=== PATIENT | male | born 1975 | race Caucasian/White ===

== ENCOUNTER 2021-11-05 18:36 | Emergency (ER) | payer OTHER, SELFPAY ==
[2021-11-05 18:46] VITALS: BP 138/85; PULSE 71; RESP 18; TEMP 36.1; O2SAT 100; BMI 24.4
--- NOTE | 2021-11-05 18:48 | ED.GENADULT ---
HPI - General Adult General Time Seen by Provider: 18:49 Date Seen: 11/05/21 Chief complaint: Nausea/Vomiting Stated complaint: Collapsed/Muscle Tightness Time Seen by Provider: 11/05/21 18:39 Source: patient Mode of arrival: ambulatory Limitations: no limitations History of Present Illness HPI narrative: Jose Luis is a 46 year old male with past medical history of chronic abdominal issues who presents to the ED via private car with nausea and vomiting. Patient states that he was in [place], helping his mother move, he did some heavier lifting. He drove back today, it is about [address], your the into the Dr. He developed some lower abdominal cramping, epigastric and periumbilical area, he got associated nausea and then felt some muscle cramping and tingling, lightheadedness, cramping and tingling was upper and lower extremities and also in his face, this has happened in the past, issues with his stomach were long time, he has had an upper and lower endoscopy, he is not on any medications at this time. Patient did go out with friends 2 nights ago which could have precipitated it. Denies any fevers or chills, no cough or chest pain, denies any back pain, urinary complaints, his last bowel movement was this morning and normal, patient states he does have issues with constipation in the past, no black or bloody stool. Patient has been hydrating. Since coming to the ED his muscle cramping, nausea and abdominal pain have improved. No other concerns at this time. Related Data Home Medications Medication Instructions Recorded Confirmed lactobacillus combination no.4 3 3,000 mmu cells PO QDAY 09/25/21 09/25/21 billion cell capsule (Probiotic) Allergies Allergy/AdvReac Type Severity Reaction Status Date / Time No Known Drug Allergies Allergy Verified 09/25/21 14:20 Review of Systems Status of ROS: Reports: 10 or more systems reviewed and unremarkable except as noted in History and below [facility] Medical History (Updated 11/05/21 @ 20:07 by Melo Rogers MD) History of hyperlipidemia Surgical History History of arthroscopy of right shoulder (~2008) History of medial meniscus repair of right knee (11/17/19) History of vasectomy (01/23/15) Family History Mother Dementia Other Alzheimers disease Heart problem Pancreatic cancer Social History Smoking Status: Never smoker Do you use any of these nicotine containing products: None Second hand tobacco smoke exposure: No service: No Exam Narrative: Exam Narrative: General: No obvious distress sitting comfortably HEENT: Pupils equal round reactive to light, extraocular muscles intact Neck: Supple full range of motion Lungs: Clear to auscultation bilaterally Heart: Normal sinus rhythm S1-S2 Abdomen: Minimal tenderness to palpation the epigastric and periumbilical area, no rebound or guarding, bowel sounds present, abdomen soft Muscle skeletal: Moving upper and lower extremities with no difficulty Neuro: Alert awake and oriented x3, gait within normal limits. Const: Vital Signs, click to edit/add: Vital Signs - 24 hr 11/05/21 18:46 Temperature 97.0 F L Pulse Rate [Right Pulse Oximeter] 71 Respiratory Rate 18 Blood Pressure [Ri ght Upper Arm] 138/85 Pulse Oximetry 100 Oxygen Delivery Me thod Room Air Course Course Hospital Course: 7:00PM: AIDET performed.vitals are normal. Work up will include IV peripheral, 1 liter 0.9 NS bolus, to check basic labs including, CBC, CRP, CMP, lipase and urinalysis. To give 40 mg IV protonix. Plan to treat symptomatically. Will await on labs to see if further imaging will be obtained. Differential diagnosis include, appendicitis, hepatitis, pancreatitis, cholecystitis, PUD colitis, nephrolithiasis, urolithiasis, urinary tract infection, riders, as well as other etiologies. Reevaluation(s) Reevaluation #1: Patient was updated on his lab results, he is tolerating orals, pain has improved, cbc showed no leukocytosis, metabolic panel mild elevated BS 138, normal AG, XR abdomen decubitus and upright pending. POC troponin negative. Due to shift change transfer of care was given to Dr. Santiago, please see his note for final disposition and plan. Time: 20:14 Vital Signs Vital signs: Initial Vital Signs Temperature 97.0 F L 11/05/21 18:46 Temperature Source Temporal Artery Scan 11/05/21 18:46 Pulse Rate 71 11/05/21 18:46 Respiratory Rate 18 11/05/21 18:46 Blood Pressure 138/85 11/05/21 18:46 Blood Pressure Mean 102 11/05/21 18:46 Blood Pressure Position Sitting 11/05/21 18:46 Pulse Oximetry 100 11/05/21 18:46 Oxygen Delivery Method 11/05/21 18:46 Vital Signs Temperature 97.0 F L 11/05/21 18:46 Pulse Rate 71 11/05/21 18:46 Respiratory Rate 18 11/05/21 18:46 Blood Pressure 138/85 11/05/21 18:46 Pulse Oximetry 100 11/05/21 18:46 Oxygen Delivery Method 11/05/21 18:46 Temperature 97.0 F L 11/05/21 18:46 Pulse Rate 71 11/05/21 18:46 Respiratory Rate 18 11/05/21 18:46 Blood Pressure 138/85 11/05/21 18:46 Pulse Oximetry 100 11/05/21 18:46 Oxygen Delivery Method 11/05/21 18:46 Medical Decision Making Lab Data Labs: Lab Results 11/05/21 11/05/21 Range/Units 19:15 19:15 WBC 8.39 (4.50-11.00) K/uL RBC 4.80 (4.30-5.90) m/uL Hgb 14.6 (13.5-17.5) gm/dL Hct 41.6 (37.0-53.0) % MCV 87 (80-100) fL MCH 30 (26-34) pg MCHC 35 (32-36) gm/dL RDW Coeff of [place] 11.3 L (11.5-15.5) % Plt Count 219 (140-440) K/uL Neut % (Auto) 85.2 H (42.0-72.0) % Lymph % (Auto) 7.7 L (20-44) % [place] % (Auto) 6.4 (0.0-11.0) % Eos % (Auto) 0.5 (0.0-7.0) % Baso % (Auto) 0.2 (0.0-3.0) % Neut # (Auto) 7.10 H (1.7-7.0) K/uL Lymph # (Auto) 0.60 L (0.90-2.90) K/uL [place] # (Auto) 0.50 (0.00-0.90) K/UL Eos # (Auto) 0.04 (0.00-0.50) K/uL Baso # (Auto) 0.02 (0.00-0.30) K/uL Abs Immat Gran (auto) 0.00 (0.00-0.30) K/uL Sodium 138 (135-149) mmol/L Potassium 3.6 (3.6-5.1) mmol/L Chloride 99 (96-114) mmol/L Carbon Dioxide 26 (20-32) mmol/L BUN 16 (5-24) mg/dL Creatinine 0.9 (0.5-1.5) mg/dL Estimated Creat Clear 110.39 Estimated GFR 107 ml/min Glucose 138 H (60-115) mg/dL Calcium 10.3 (8.4-10.6) mg/dL Total Bilirubin 0.8 (0.1-1.5) mg/dL AST 31 (12-35) U/L ALT 28 (4-50) U/L Alkaline Phosphatase 102 (40-150) U/L C-Reactive Protein 1.2 H (0.5-1.0) mg/dL Total Protein 8.3 (6.0-8.3) g/dL Albumin 4.9 (3.3-5.0) g/dL Lipase 59 (23-300) U/L Discharge Plan Discharge Clinical Impression: Abdominal cramping, Paresthesia, Nausea Patient Disposition: Home, Self-Care Condition: Improved Instructions: Abdominal Pain (ED) Additional Instructions: To follow up with primary care provider in the next 7-10 days, to continue to push the fluids, tylenol and OTC PPI's for abdominal cramping, return if worsening symptoms. Prescriptions: No Action Probiotic 3 billion cell capsule 3,000 mmu cells PO QDAY Rx Instructions: administer with a meal Follow Up/Referrals: Artur Paul MD [Primary Care Provider] - Stand Alone Forms: MyHealth Info Instructions
[2021-11-05 18:50] VITALS: BP 138/85; PULSE 73; RESP 18; O2SAT 97
[2021-11-05] MEDS: PANTOPRAZOLE SODIUM 40 MG INJ IVP (19:22)
[2021-11-05] MEDS: 0.9 % SODIUM CHLORIDE 1000 ml 1,000 ML IV (19:22)
--- OUTSIDE RECORDS SUMMARY | 2021-11-05 19:26 | XMS_ITS | Encounter Summary ---
:1975 Author Organization [facility] Address [address], [place] [address] Care Team Providers Name Role Phone Chencho Arauz PA-C Primary Care Provider Unavailable Encounter Details Date Type Department Care Team Description 11/19/2011 Lab Visit Specialty Center 3931 Abdomi nal pain, unspecified Outpatient Laborator y site [address] [place] [address] Social History Tobacco Use Types Packs/Day Years Used Date Smoking Tobacco: Never Assessed Sex Assigned at Date Recorded Not on file documented as of this encounter Plan of Treatment Not on filedocumented as of this encounter Procedures Procedure Name Priority Date/Time Associated Diagnosis Comme nts COMPLETE BLOOD Routine 11/19/2011 4:08 PM Abdominal pain, Resu lts for this COUNT-W/DIFF CDT unspecified site procedure a re in the results section. DIFFERENTIAL Routine 11/19/2011 4:08 PM Results f or this CDT procedure are i n the results section. C-REACTIVE PROTEIN Routine 11/19/2011 4:08 PM Abdominal pain, Results for this CDT unspecified site procedure a re in the results section. documented in this encounter Results Differential (11/19/2011 4:08 PM CDT) Analysis Performed At Patho logist Time Signature Absolute 3.2 1.8 - 8.0 HP CONVERSION Neutrophils k/cmm Absolute 1.6 1.1 - 4.0 HP CONVERSION Lymphocytes k/cmm Absolute 0.4 0.2 - 0.8 HP CONVERSION Monocytes k/cmm Absolute 0.1 0.0 - 0.5 HP CONVERSION Eosinophils k/cmm Absolute 0.0 0.0 - 0.2 HP CONVERSION Basophils k/cmm Immature 0.2 0.0 - 0.5 HP CONVERSION Granulocytes % Specimen Anatomical Collection Method Collection Time Receive d Time (Source) Location / / Volume Laterality 11/19/2011 4:08 PM 2 4:12 CDT PM CDT [place] C Brittany LEVINE CNP LAB_1 Performing Organization Address [facility] Phon e Number HP CONVERSION C-Reactive Protein (11/19/2011 4:08 PM CDT) athologist Signature CRP <0.1 0.0 - 0.9 HP CONVERSION mg/dL Specimen Anatomical Collection Method Collection Time Receive d Time (Source) Location / / Volume Laterality 11/19/2011 4:08 PM 2 4:12 CDT PM CDT DeeD ee Soto APRN, CNP LAB_1 Performing Organization Address [facility] Phon e Number HP CONVERSION Hemogram/Plts/Diff (11/19/2011 4:08 PM CDT) P athologist Signature White Blood Cell 5.2 3.8 - 11.0 HP CONVERSIO N Count k/cmm Red Blood Cell 4.65 4.20 - HP CONVERSION Count 5.90 m/cmm Hemoglobin 14.2 13.4 - HP CONVERSION 17.5 g/dL Hematocrit 40.4 39.0 - HP CONVERSION 51.0 % Mean Corpuscular 86.9 80.0 - HP CONVERSION Volume 100.0 fL RDW 11.9 11.0 - HP CONVERSION 15.0 % Platelet Count 221 140 - 450 HP CONVERSION k/cmm Specimen Anatomical Collection Method Collection Time Receive d Time (Source) Location / / Volume Laterality 11/19/2011 4:08 PM 2 4:12 CDT PM CDT Dee Dee Soto APRN, CNP LAB_1 Performing Organization Address [facility] Phon e Number HP CONVERSION documented in this encounter Visit Diagnoses Diagnosis Abdominal pain, unspecified site documented in this encounter Care Teams Instrument Panel Assembler Relationship Specialty Start Date End Date Chencho Arauz PA-C PCP - General 05/14/1012/16/11 documented as of this encounter
--- OUTSIDE RECORDS SUMMARY | 2021-11-05 19:26 | XMS_ITS | Encounter Summary ---
:1975 Author Organization [facility] Address [address] [place] [address] Care Team Providers Name Role Phone Ge Lawler MD Primary Care Provider Reason for Visit Reason Comments Abdominal Pain Encounter Details Date Type Department Care Team Description 03/04/2012 Office Visit Specialty Center Dee Dee Soto, Abdomi nal pain, [address] unspecified site Gastroenterology [address] [place] [address] (Primary Dx) [address] [place] [address] [phone] Social History Tobacco Use Types Packs/Day Years Used Date Smoking Tobacco: Never Alcohol Use Standard Drinks/Week Comments Yes 1.7 (1 standard drink = 0.6 oz pure alco hol) Sex Assigned at Date Recorded Not on file documented as of this encounter Last Filed Vital Signs Vital Sign Reading Time Taken Comments Blood Pressure 118/68 03/04/2012 3:55 PM CERTIFIED PUBLIC ACCOUNTANT Pulse - - Temperature - - Respiratory Rate - - Oxygen Saturation - - Inhaled Oxygen Concentration - - Weight 80.1 kg (176 lb 9.6 oz) 03/04/2012 3:55 PM CERTIFIED PUBLIC ACCOUNTANT Height - - Body Mass Index 24.63 12/23/2011 3:46 PM CERTIFIED PUBLIC ACCOUNTANT documented in this encounter Patient Instructions Patient InstructionsDee Dee Soto, MATT LEVINE - 03/04/2012 4:33 PM CERTIFIED PUBLIC ACCOUNTANT dicyclomine 1 or 2 at a time dry mouth constipation light headed ultrasound when you are able call when you have pain recur, give description Any time there is pain, write down what you have eaten and drunk in the previous 24 hours and note what your bowel habit has been in 3 days - and what happens the next 12 -24 hours. Keep these records for review to see whether a food or food group is causing the episode or whether stool overload is causing a natural clean out. Miralax daily for months - one dose daily if mushy stool, 1/2 dose OR psyllium daily heaping teaspoon, Milk of magnesia 2 to 4 tablespoons if pain lasts IFIED PUBLIC ACCOUNTANT documented in this encounter Progress Notes Dee Dee Soto APRN, CNP - 03/04/2012 5:19 PM CST Progress Notes signed by FANY Boss at 03/09/121850 Author: FANY Boss Service: (none) Author Type: Nurse Practitioner Filed: 03/09/121850 Note Time: 03/04/121718 Status: Signed Pediatric Occupational Therapist: FANY Boss (Nurse Practitioner) NAME: JOSE LUIS SHIPLEY MR#: [id number] CSN: [id number] AUTHENTICATING CLINICIAN: FANY Boss CONFIRM #: [id number] LOC: 3533 CLINIC PROGRESS NOTE DATE OF VISIT: 03/04/2012 : 1975 CHIEF COMPLAINT: Abdominal pain, recurrent. HISTORY OF PRESENT ILLNESS: Jose Luis is a 37-year-old man whom I first met April 24, 2011, regarding abdominal pain. He returnedto clinic November 18. Abdominal film on that date showed stool in the right side of the colon. Subsequent to the most recent visit he had colonoscopy in December. He had 2 days after colonoscopy with no discomfort or pain, but then 2 days with fairly severe pain. He had to leave work at one point. He has had many weeks when he felt well, some occasional days with mild symptoms which were brief. Last week he had 3 days with lower level discomfort over about 3 days. Jose Luis has not had nausea, vomiting, upper GI symptoms. He does not have decrease in energy or appetite, fevers or chills. His pain occurs or worsens 30 to 60 minutes after a meal. It usually resolves within a couple hours. Only on occasion when it was so severe that it lasted 2 days. He feels better when he lies down. A colleague suggested gallbladder disease, so he wonders about that. He denies constipation, but on more detailed questioning, did have pellet stool at the time of his pain last week. He rarely has a day with no stool. He does not recall unusual gas and is unable to associate his pain with any specific ingestion. MEDICAL HISTORY: Updated, no other chronic condition. MEDICATIONS: Hyoscyamine was of no benefit, is deleted from the record. ADVERSE DRUG REACTIONS: None known. REVIEW OF SYSTEMS: Otherwise negative. OBJECTIVE: Blood pressure 118/68, weight 176 pounds, height 71 inches. Clean, neatly groomed, nicely dressed in business casual attire, well-nourished man, in no visible distress. EYES: Anicteric. Abdomen is tympanic on the right and epigastrium, soft, nontender, with no mass or organomegaly. He confirms location of his pain as being across the mid abdomen at the level or just above the umbilicus. RESULTS: Normal colonoscopy. Also normal complete blood count, CRP, tTG. ASSESSMENT: A 37-year-old man with functional abdominal pain, which is highly likely associated with his colon and probably secondary to stool overload or inadequate bowel movement. This pain has never localized to the epigastrium or right upper quadrant, so is highly unlikely to be from his gallbladder. Also, with his more severe pain, it still felt better with him lying down rather than pacing as would be withgallstones. The most recent pain was nearly a week ago so laboratory studies would in all likelihoodremain normal. PLAN: 1. Right upper quadrant ultrasound. 2. MiraLAX 1 dose daily, may decrease to half dose daily. 3. Dicyclomine as needed. 4. At the time of pain, record ingestions and bowel habit as in instructions. 5. Psyllium is a good substitute if he does not care for the MiraLAX or has suboptimal stool form. 6. If pain lasts more than a couple of hours, milk of magnesia 2 to 4 tablespoons is a reasonable action as long as he has no vomiting or diarrhea. 7. If he has the severe pain for which he needs to leave work and it is not resolved, a CT of the abdomen and pelvis at that time would be a reasonable action. 8. We reviewed the assessment and plan. If these actions do not resolve pain, but it is not severe enough for the emergency center, he is to please call and we will order lab tests at a minimum. He hasno family history of angioedema or porphyria, and his symptoms are so very likely functional as compared to those rare disorders and he does not have some of the additional features more common with the rare disorders. This was discussed. 9. Total visit 20 minutes with counseling time 15 minutes. SCB:MEDQ C: CONFIRM #: [id number] IFIED PUBLIC ACCOUNTANT documented in this encounter Plan of Treatment Not on filedocumented as of this encounter Procedures Procedure Name Priority Date/Time Associated Diagnosis Comme nts US ABD RUQ ORGANS Routine 03/30/2012 7:50 AM Abdominal pain, R esults for this CERTIFIED PUBLIC ACCOUNTANT unspecified site procedure a re in the results section. documented in this encounter Results US Abd RUQ Organs (03/30/2012 7:50 AM CERTIFIED PUBLIC ACCOUNTANT) Anatomical Region Laterality Modality Abdomen Other Specimen (Source) Anatomical Location Collection Method / Collectio n Time Received Time / Laterality Volume Impressions 03/30/2012 8:03 AM CERTIFIED PUBLIC ACCOUNTANT IMPRESSION: Normal right upper quadrant ultrasound. Narrative 03/30/2012 8:03 AM CERTIFIED PUBLIC ACCOUNTANT No comparison. Pancreas is normal. ?? Liver is normal. ?? No intra or extrahepatic biliary dilatat ion. Common bile duct maximum diameter 4 mm. ?? Gallbladder is normal and no sludge, mera ris or calculi. Technologist reports negative Spann's s ign and no wall thickening or fluid in the gallbladder fossa is seen. Right kidney is normal. Procedure Note Wing Belcher MD - 07/29/2015Formatti ng of this note might be different from the original. No comparison. Pancreas is normal. Liver is normal. No intra or extrahepatic biliary dilatat ion. Common bile duct maximum diameter 4 mm. Gallbladder is normal and no sludge, mera ris or calculi. Technologist reports negative Spann's s ign and no wall thickening or fluid in the gallbladder fossa is seen. Right kidney is normal. IMPRESSION IMPRESSION: Normal right upper quadrant ultrasound. Dee Dee Soto APRN, CNP RAD US documented in this encounter Visit Diagnoses Diagnosis Abdominal pain, unspecified site - Prima ry documented in this encounter Care Teams Graphite Grinder Relationship Specialty Start Date End Date Ge Lawler MD PCP - General Family Practice 12/17/11 10/11/15 [address] [place] [address] documented as of this encounter
--- OUTSIDE RECORDS SUMMARY | 2021-11-05 19:26 | XMS_ITS | Encounter Summary ---
:1975 Author Organization [facility] Address [address] [place] [address] Care Team Providers Name Role Phone Ge Lawler MD Primary Care Provider Encounter Details Date Type Department Care Team Description 04/15/2013 Imaging [facility] Pain in joint, shoulder [address] [place], [place] [address] Social History Tobacco Use Types Packs/Day Years Used Date Smoking Tobacco: Never Alcohol Use Standard Drinks/Week Comments Yes 1.7 (1 standard drink = 0.6 oz pure alco hol) Sex Assigned at Date Recorded Not on file documented as of this encounter Plan of Treatment Not on filedocumented as of this encounter Procedures Procedure Name Priority Date/Time Associated Diagnosis Comme nts XR SHOULDER LT 2+ Routine 04/15/2013 3:57 PM Pain in joint, Re sults for this VIEWS CERTIFIED FORKLIFT OPERATOR shoulder region procedure ar e in the results section. documented in this encounter Results XR Shoulder Lt 2+ Views (04/15/2013 3:57 PM CERTIFIED FORKLIFT OPERATOR) Anatomical Region Laterality Modality Upper Extremity, Shoulder Other Specimen (Source) Anatomical Location Collection Method / Collectio n Time Received Time / Laterality Volume Narrative 04/16/2013 8:16 AM CERTIFIED FORKLIFT OPERATOR Shoulder films: INDICATION: Left shoulder pain. RADIOGRAPHIC ASSESSMENT: Perhaps slight widening of the AC. Procedure Note Yung Larsen MD - 07/29/2015Format ting of this note might be different from the original. Shoulder films: INDICATION: Left shoulder pain. RADIOGRAPHIC ASSESSMENT: Perhaps slight widening of the AC. Yung Larsen MD RAD GD documented in this encounter Visit Diagnoses Diagnosis Pain in joint, shoulder region documented in this encounter Care Teams Pilot Supervisor Relationship Specialty Start Date End Date Ge Lawler MD PCP - General Family Practice 12/17/11 10/11/15 [address] [place] [address] documented as of this encounter
--- OUTSIDE RECORDS SUMMARY | 2021-11-05 19:26 | XMS_ITS | Encounter Summary ---
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 If you develop bleeding from the site, apply firm pressure directly over the bandage, using the heelof your hand, for [address] another bandage on top of the first one - don???t keep removing and replacing dressings. NO PEEKING! Notify us if the bleeding still does not stop. Clean the area once a day with warm soap and water. Gently pat dry the area. If you have stitches, use a cotton-tipped applicator to gently remove any crust or scab that has formed. Showering is okay, but please do not soak in a bathtub, hot tub, or pool. This will slow the healingprocess and may create infection. After the area has been cleaned and is dry, apply a small amount of petroleum jelly or Aquaphor healing ointment and apply a new bandage. We prefer that you do not use an antibacterial ointment (i.e. bacitracin, Neosporin) as many people develop a hypersensitivity including a rash and even blistering related to these. Continue the wound care process until the area is healed or until stitches are removed. Complete healing usually takes 2-4 weeks. Wounds heal best when kept moist, try not to let the area dry out. Letting them open to air, drying out, and having a scab form actually causes wounds to take longer to heal. If your skin is getting sensitive to the bandage, use gauze and paper tape. Avoid exercising for 2 days and if you have stitches, you will want to restrict your physical activity to avoid strenuous movements that will cause stretching and pulling of the skin for 2 weeks. Infection after a biopsy or surgery is not likely, but can occur. Mild amounts of redness, bruising,swelling, discomfort and a clear to yellowish to blood- tinged discharge are normal. Signs of Infection include: fever, increasing pain, blood blister, drainage of pus, and extreme heatfrom the site. Feel free to call the clinic at [phone] if you experience any of these symptoms. Suture Removal: Please schedule your nurse appointment at the lead front desk agent for the suture removal within 7-14 days. We will notify you by telephone with the results of the biopsy as soon as they become available, generally within 2 weeks. BAKER documented in this encounter Progress Notes Kailey Oswald RN - 02/07/2012 9:14 AM HEAD BAKER Quick Note: letter sent BAKER Ashleigh Espinal MD - 02/06/2012 9:37 AM HEAD BAKER Quick Note: FP, benign . Please mail letter. BAKER Ashleigh Espinal MD - 01/28/2012 3:22 PM CST S: Jose Luis Shipley is a 36 y.o. male here for follow up. Patient is here to have the fibrous papule on the right nasal bridge removed today. Current outpatient prescriptions ordered prior to encounter Medication Sig Dispense Refill ??? hyoscyamine (LEVSIN/SL) 0.125 mg SL tablet Take 1 tablet by mouth every 4 hours as needed for Cramping. 30 tablet 0 No Known Allergies O: Healthy male in NAD. Alert and oriented x 3. Exam includes: face Pertinent findings: 4 mm skin colored papule on right nasal bridge A/P: 1. Probable Fibrous papule on the nasal bridge. A shave biopsy was performed to help elucidate diagnosis. Informed consent obtained. The area was cleansed, and prepped accordingly. Anesthesia was achieved with lidocaine with epinephrine. Shave biopsy was done. Specimen sent for pathology review. Hemostasis achieved with aluminum chloride. Vaseline and bandaid applied. Wound care reviewed. Kailey Peres, assisted Ashleigh Espinal MD in documenting services performed at this visit on 01/28/2012 at 3:08 PM. Cesia Oswald RN assisted in documenting services performed at this visit on 01/28/2012 at 3:08 PM BAKER documented in this encounter Miscellaneous Notes Miscellaneous - 03/22/2016 11:36 AM CSTNotes Recorded by Kailey Oswald RN on 02/07/2012 at 9:14 AMletter sent------Notes Recorded by Ashleigh Espinal MD on 02/06/2012 at 9:37 AMFP, benign . Please mail letter. BAKER documented in this encounter Plan of Treatment Not on filedocumented as of this encounter Procedures Procedure Name Priority Date/Time Associated Diagnosis Comme nts SURGICAL PATH, TERRY Routine 01/28/2012 6:00 AM Re sults for this NICOLLET HEAD BAKER procedure are i n the results section. documented in this encounter Results Pathology Report (01/28/2012 6:00 AM HEAD BAKER) Component Value Ref Test Analysis Performed At [facility] gist Range Method Time Signature Path: ? Final DERMATOPATHOLOGY REPO RT HP CONVERSION Pathology #: [id number] ? Date Obtained: 01/28/2012 ?Date Received: 01/28/2012 DIAGNOSIS: ? Skin, right nasal bridge, shave biopsy: ? - Irritated fibrous papule. (See comment) ? Comment: Deeper sections were obtained in this case. Deep margin ? is involved. Appropriate clinical follow-up is recomm ended. ? Additional sampling is advised if a lesion recurs. Th is case was ? reviewed with KR. ?MEGHAN YBARRA N ? (electronic signatur e) ? 02/03/2012 ??14:1 9 CLINICAL NOTES: ? R/O FP vs other ORGAN/TISSUE SITE ? Right nasal bridge GROSS DESCRIPTION: ? Received in a formalin-filled container labeled with the patient's ? name is a 3 x 2 x 1 mm shave biopsy of skin. The spec imen is ? marked with blue ink and submitted entirely in one ca ssette. ?PEDEL MICROSCOPIC DESCRIPTION: ? Sections examined show a shave of skin. Within the de rmis are ? stellate fibroblasts. Dilated vessels and perivascula r ? inflammation are seen. Deeper sections show similar f eatures. ? Factor 13a highlights the fibroblasts. S-100 stain sh ows a normal ? number of epidermal melanocytes, dendritic cells and small nerves ? and does not show an atypical melanocytic lesion. Jolly khan A stain ? shows a normal number of epidermal melanocytes and do es not show ? an atypical melanocytic lesion. ??The deep margin is involved. ? End of Report Specimen Anatomical Collection Method Collection Time Receive d Time (Source) Location / / Volume Laterality SHAVE BIOPSY OF 01/28/2012 6:00 AM 2011 6:00 SKIN / Unknown HEAD BAKER AM HEAD BAKER Transcriptions 03/22/2016 11:36 AM CSTNotes Recorded by Kailey Oswald RN on 02/07/2012 at 9:14 AMletter sent------Notes Recorded by Ashleigh Espinal MD on 02/06/2012 at 9:37 AMFP, benign . Please mail letter. 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
--- OUTSIDE RECORDS SUMMARY | 2021-11-05 19:26 | XMS_ITS | Encounter Summary ---
:1975 Author Organization [employer] Address [address] [place] [address] Care Team Providers Name Role Phone Ge Lawler MD Primary Care Provider Reason for Visit Reason Comments Annual Exam Encounter Details Date Type Department Care Team Description 10/13/[address] [facility] [address] Chencho Arauz general medical examination at a health care facility (Primary Dx); Family Medicine W, PA-C Screening for ischemic heart disease; [facility] [place] [address] Screening for diabetes mellitus; [facility] Need for edbvblivkp-lripuyn-tiqjpjiqv (T dap) vaccine; [place], [place] Contr aception [phone] Social History Tobacco Use Types Packs/Day Years Used Date Smoking Tobacco: Never Alcohol Use Standard Drinks/Week Comments Yes 1.7 (1 standard drink = 0.6 oz pure alco hol) Sex Assigned at Date Recorded Not on file documented as of this encounter Last Filed Vital Signs Vital Sign Reading Time Taken Comments Blood Pressure 100/60 10/13/2013 3:31 PM CDT Pulse 60 10/13/2013 3:31 PM CDT Temperature - - Respiratory Rate - - Oxygen Saturation - - Inhaled Oxygen Concentration - - Weight 80.7 kg (178 lb) 10/13/2013 3:31 PM CDT Height 179.1 cm (5' 10.5) 10/13/2013 3:31 PM CDT Body Mass Index 25.18 10/13/2013 3:31 PM CDT documented in this encounter Patient Instructions Patient Yolanda Farris LPN - 10/13/2013 3:32 PM CDT Patient Followup Plan: Provided patient with Healthy Weight Matters brochure. Healthy Weight Matters Understanding body mass index If you are overweight or obese, your risk increases for developing health problems. Similarly, a lowBMI can indicate an underlying health problem, or you simply may not be eating enough. Your BMI measurement alone cannot predict your health risk. But if you know your BMI is high or low, you can take steps to set healthy goals and improve your overall well-being. You can check your BMI by using the BMI table on the back. Overall, we recommend making healthy changes to your eating and exercise habitsto increase, decrease or maintain your weight. What can I do if I have a high BMI? Losing weight is an important way to reduce your BMI and improve your overall health and well-being.The best way to lose weight and keep weight off is to balance the foods you eat with daily physical activity. Start small. Aim to lose a few pounds to begin rather than worry about your ideal weight. Here are some tips: ??? Keep a record of what you eat for 2 weeks to notice what you are and are not eating ??? Eat 5 servings of fruits and vegetables a day ??? Replace some of the meat in your meals with legumes (dry beans) and whole grains ??? Limit adding fats, such as salad dressing, mayonnaise, peanut butter, margarine, butter and oil,to your food ??? Pay attention to portion sizes--Use smaller plates if helpful. ??? Drink water instead of sweetened beverages, such as soda, juice and coffee drinks ??? Do not eat fast food ??? Share meals when eating at restaurants, or take home half of the entr??e Doing 30 minutes or more of physical activity every day and not smoking are important. Choose activities you enjoy and are safe for you, so you can make them part of your daily schedule. Remember to check with your doctor before starting any exercise program. Gradually work up to the goals you set with your doctor. What can I do if I have a low BMI? Staying at a healthy weight is important to support your daily activities. Do not skip meals and tryto eat 5 to 6 small meals daily. Here are some tips: ??? Add nuts or nut butters, avocado or olive oils to salads and side dishes ??? Choose 100% fruit juices for beverages instead of water ??? Drink a higher fat milk (2% or whole) ??? Drink a high-calorie nutritional beverage ??? Eat fruit canned in syrup or frozen with sugar ??? Substitute juice or milk for water as a beverage ??? Serve fresh vegetables with cheese spreads, regular sour cream, dips or salad dressings Also consider reducing your exercise. For example, decrease the time you exercise or take a day off every 2 to 3 days. Your body mass index, or BMI, is a good way to check if your weight is healthy for your height. YourBMI helps us find out if your weight is putting your health at risk. Healthy eating for all No matter your BMI, follow these recommendations to help be as healthy as possible: ??? Eat 5 servings of fruits and vegetables a day ??? Pay attention to portion sizes ??? Limit your sugar-sweetened beverages ??? Eat a variety of unprocessed foods prepared naturally ??? Eat in a pleasant environment--Enjoy the company of family or friends when you eat. Resources ??? Primary Care Nutrition Services. One-on-one visits with a registered dietitian are available at various clinic locations to help you develop a personalized plan for managing your weight. Clinic locations include [facility], [facility] and [place]. To schedule an appointment, call [phone]. ??? Local and on-line resources. For more information on managing weight, call [phone] to have a brochure mailed to you. Your Body mass index is 25.17 kg/(m^2). Less than 18.5 = Underweight 18.5 to 24.9 = Healthy weight 25 to 29.9 = Overweight 30 to 39.9 = Obese 40 or greater = Extreme obesity documented in this encounter Progress Notes Chencho Arauz PA-C - 10/13/2013 4:27 PM CDT Preventive Exam SUBJECTIVE: Patient presents for a routine preventive physical exam. He has no symptomatic complaints or other concerns. Past Medical History: Patient's active medical problems were reviewed and updated in Epic. Past Medical History Diagnosis Date ??? Abdominal pain, unspecified site 03/04/2012 recurrent Adverse Drug Reactions: No Known Allergies Current Medications: Reviewed today and updated in [email or web address] Med List. Current Outpatient Prescriptions on File Prior to Visit Medication Sig Dispense Refill ??? [] ciprofloxacin-dexamethasone (CIPRODEX) otic suspension Place 4 drops into the left ear2 times daily for 7 days. 7.5 mL 0 No current facility-administered medications on file prior to visit. Family History: History reviewed. No pertinent family history. Social History: History Social History ??? Marital Status: Spouse Name: N/A Number of Children: N/A ??? 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 Smoking status: Never Smoker ??? Smokeless tobacco: Never Used ??? Alcohol Use: 1.8 oz/week 3 Cans of beer per week Comment: Alcoholic Drinks/day: Amount:3-4 drinks; Freq:2-4/Month ; ??? Drug Use: Not on file ??? Sexual Activity: Not on file Other Topics Concern ??? Bike Helmet No ??? City Water Yes ??? Exercise Yes ??? Guns In Home No ??? Seat Belt Yes ??? Special Diet No ??? Weight Concern No Social History Narrative Review of systems are HEENT: Denies any headache diplopia blurred vision ringing in the ears sinus pressure pain sore throat or change in voice Pulmonary denies any cough congestion hemoptysis dyspnea Cardiac denies any chest pain pressure palpitations GI denies any hematochezia melena or hematemesis denies any dysuria hematuria frequency or hesitancy Neurological denies any dizziness syncope seizures paresthesias weakness tremor or fasciculations Musculoskeletal denies any joint stiffness swelling Vascular denies any phlebitis varicosities claudication or cramping Heme denies any lymph node enlargement pain fatigue fever chills or night sweats Integument denies any worrisome lesions moles or itching Psych denies any depression anxiety panic memory disturbances OBJECTIVE: Vital Signs: BP 100/60 Pulse 60 Ht 5' 10.5 (1.791 m) Wt 178 lb (80.74 kg) BMI 25.17 kg/m2 General: Patient alert, in NAD. HEENT: PERRLA. Bilateral TM's, external canals, oropharynx normal. Neck: Supple, without thyromegaly or mass. CV: RRR without murmurs, rubs or gallops. Resp: Clear to auscultation without crackles, wheezes or distress. Abdomen: Soft, non-tender, without hepatosplenomegaly, masses, or hernias. Lymphatic: No neck, supraclavicular, axillary or groin lymphadenopathy. Extrem: No Edema, Full ROM, normal strength Skin: No lesions. Neuro: CN II-XII, motor & sensory function all intact. Reflexes are equal at the patellas bilaterally. Psychiatric: Alert & oriented with normal affect and insight. Patient does not appear depressed or anxious. ASSESSMENT: Routine preventive exam. Healthy male. Diagnosis (ICD9) and Associated Orders ICD-9-CM 1. Routine general medical examination at a health care facility V70.0 CANCELED: Glucose 2. Screening for ischemic heart disease V81.0 Cholesterol Fraction-LDLD If Trig High 3. Screening for diabetes mellitus V77.1 Glucose 4. Need for rpapjlesnd-hubmzfm-nvtuqxbdx (Tdap) vaccine V06.1 Tdap (BOOSTRIX) Immunizations reviewed and updated. See Problem List Patient Active Problem List Diagnosis ??? Abdominal pain, unspecified site PLAN: Follow-up in 1 year, sooner PRN any concerns. Fasting Labs as ordered. [Prescriptions provided, see OP Med list.] documented in this encounter Plan of Treatment Not on filedocumented as of this encounter Visit Diagnoses Diagnosis Routine general medical examination at a health care facility - Primary Screening for ischemic heart disease Screening for diabetes mellitus Need for icokgsshgu-ahleqve-bkyvrlfrf (T dap) vaccine Need for prophylactic vaccination with c ombined naxumbbwtm-wjehpgo-dacyyystj (DTP) vaccine Contraception Unspecified contraceptive management documented in this encounter Care Teams Tile Inspector Relationship Specialty Start Date End Date Ge Lawler MD PCP - General Family Practice 12/17/11 10/11/15 [address] [place] [address] documented as of this encounter
--- OUTSIDE RECORDS SUMMARY | 2021-11-05 19:26 | XMS_ITS | Encounter Summary ---
:1975 Author Organization [facility] Address [address] [place] [address] Care Team Providers Name Role Phone Ge Lawler MD Primary Care Provider Reason for Referral Specialty Diagnoses / Procedures Referred By Contact Refer red To Contact Chencho Arauz P A-C [address] [place] [address] Referral ID Status Reason Start Date Expiration Date Visits Requ ested Visits Authorized RER PETROLEUM REFINERY Reason for Visit Reason Comments CONSULT Sterilization Encounter Details Date Type Department Care Team Description 12/31/2013 Initial Consult [facility] [address] Santo Paula erilization consult (Primary Dx); Urology MD Patti Contraception 39[address] [facility] [address] [facility]. [facility] [phone] Social History Tobacco Use Types Packs/Day Years Used Date Smoking Tobacco: Never Alcohol Use Standard Drinks/Week Comments Yes 1.7 (1 standard drink = 0.6 oz pure alco hol) Sex Assigned at Date Recorded Not on file documented as of this encounter Progress Notes Santo Paula MD - 12/31/2013 4:11 PM CST Vasectomy Consult ?? The patient is self-referred for his vasectomy consult. Jose Luis Shipley is a 38 y.o. male is here for a vasectomy consult.? The patient wishes for a permanent sterilization. ?? I discussed the nature of the procedure with the patient and how it is performed.?? We also discussed the risk of infection, bleeding, post vasectomy pain syndrome and persistent or recurrent fertilityissues all which could require a surgical procedure.?? We also discussed the risk of future due to the tubes reconnecting.?? The patient recognizes that he needed to have a negative sperm sample 3-4 months after his vasectomy before he can be cleared to have unprotected intercourse.?? The patient understood all of this.?? All questions were answered, and informed consent was obtained. ?? OBJECTIVE: GENITOURINARY:?? Both vas are easily palpable. ?? ASSESSMENT: Vasectomy consult. ?? PLAN: The patient will schedule himself for a vasectomy sometime in the near future.?? A prescription for valium was given to the patient. ?? Santo Paula MD RER PETROLEUM REFINERY documented in this encounter Plan of Treatment Scheduled Referrals Name Type Priority Associated Diagnoses Order S chedule Urology Consult-Adults Referral Routine Contraception Orde red: 12/31/2013, Expires: 2013 documented as of this encounter Visit Diagnoses Diagnosis Sterilization consult - Primary Other general counseling and advice for contraceptive management Contraception Unspecified contraceptive management documented in this encounter Care Teams Meter Installer And Remover Relationship Specialty Start Date End Date Ge Lawler MD PCP - General Family Practice 12/17/11 10/11/15 [address] [place] [address] documented as of this encounter
--- OUTSIDE RECORDS SUMMARY | 2021-11-05 19:26 | XMS_ITS | Encounter Summary ---
:1975 Author Organization [employer] Address [address] [place] [address] Care Team Providers Name Role Phone Chencho Arauz PA-C Primary Care Provider Unavailable Reason for Visit Reason Comments Physical Therapy Encounter Details Date Type Department Care Team Description 05/20/2016 Office Visit [facility] Miko Pascal, PT Acute pain of right knee (Primary Dx); Center, Physical [address] [facility] Weakness of right lower extremity [place], [place] [address] [facility] [address] [address] [address] [place], [place] [address] [phone] Social History Tobacco Use Types Packs/Day Years Used Date Smoking Tobacco: Never Smokeless Tobacco: Never Alcohol Use Standard Drinks/Week Comments Yes 3 (1 standard drink = 0.6 oz pure Alcoho lic Drinks/day: Amount:3-4 alcohol) drinks; Freq:2-4/Fri ; Alcohol Habits Answer Date Recorded How often do you have a drink Not asked containing alcohol? How many drinks containing alcohol Not asked do you have on a typical day when you are drinking? How often do you have six or more Not asked drinks on one occasion? Comment: Alcoholic Drinks/day: Amount:3-4 016 drinks; Freq:2-4/Month ; Sex Assigned at Date Recorded Not on file documented as of this encounter Progress Notes Miko Pascal, PT - 05/20/2016 11:23 AM CDT [facility] Daily Note Visit Number: 5 Preferred One <13 years Initial Certification Period: 04/20/2016 to 07/19/16 Referring Provider: Angelina Nowak MD Diagnosis: R patellar tendonitis Orders: Evaluate & treat Precautions/Contraindications: none Date of Onset: Re-exacerbation of symptoms 2.5 weeks ago Standardized Functional Score: Knee Outcome Survey: 41/70 = 58.6%; Sport Activity Scale: 23/55 = 41.8% (lower scores represent greater disability) History: The patient reports a 12 year history of R knee pain, off/on. He works on his strengtheningat the gym (primarily knee extensions, hamstring curls). He states that during his last basketball game 2.5 weeks ago, he states he landed wrong and felt immediately R anterior knee pain. He kept playing but after the game his symptoms worsened and has hasn't been able to play since then. He tried riding his bike lasts week but had difficulty starting due to pain. He has reported a couple instances of knee buckling/giving way. Going up and down stairs also provokes the pain. The pain is located in the anterior knee just below the patella. He denies swelling. He has been icing, which tends to help. Method of Injury: Jumping and landing during basketball Recreational activities; basketball 1x/week, tennis off on, plays more in summer. Elliptical and light lifting at the gym 2x/week. 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 Daily pain is rare now, but he still notes soreness if he tries to jog up/down stairs and deeper squats most of all. OBJECTIVE: Today???s Findings: ROM ([id number]): WNL without symptoms Joint mobility: Patellar: WNL without pain Strength: per below Palpation: continued tenderness to palpation at inferior patellar pole, medial facet, and patellar tendon - though improved Functional Tests: Double leg squat: looking great Single leg squat: looked great on L, mild anterior loading and valgus still on L TREATMENT TODAY: Neuromuscular re-education (CPT 93837) x 25 minutes: Patellar taping - reduced symptoms with step down task Access Code: [email or web address] Exercises Single leg bridges x fatigue/20 - 90/90 position now Prone Planks - alternating leg lifts as able Double leg press x 20 - 160 lbs Single leg press x 20 - 85 lbs lateral step downs - progressed to retro step ups at 4-6'' step x 20 Abduction side step with band x 20 - progressed to eccentric SL glute Side planks threaders x 30 sec Forward walking lunges x 20 Single leg RDLs x 20 lbs x 20 All BILATERAL Patient correctly performed all exercises following mild verbal, tactile, and visual cues regarding isolation of intended musculature and to keep exercises pain free, and displayed good understanding of exercise parameters and progression. Timed Code Treatment Minutes: 25 Total Treatment Minutes: 30 ASSESSMENT: Patient having minimal to almost no pain today with HEP review, and tolerated some pretty significant advancements without complaints or significant difficulty. I feel he should likely be ready for progression into light walk/jog routine and some bulwark carpenter hopping/plyometric based exercises as well. Didgreat with self taping. PLAN: Progress HEP/therapeutic exercise as appropriate and able. Manual therapy and modalities for pain control as needed. - review taping - consider light return to jog EXPECTED FUNCTIONAL OUTCOMES/GOALS: HEP/Independent Management: Demonstrate independence with HEP and self- management following each treatment session Ambulation: Ascend/descend stairs independently with reciprocal pattern with minimal to no symptoms and improved lower extremity alignment in 6 weeks. Sports/Leisure: Return to prior level of leisure or recreational activities, including basketball without an increase in symptoms or limitations in 12 weeks. Outcomes: Improve Functional outcome score to at least 85 in 12 weeks. Therapist: Miko Pascal PT, DPT, OCS documented in this encounter Plan of Treatment Not on filedocumented as of this encounter Visit Diagnoses Diagnosis Acute pain of right knee - Primary Weakness of right lower extremity documented in this encounter Care Teams Board Stacker Relationship Specialty Start Date End Date Chencho Arauz PA-C PCP - General 10/12/1511/27 documented as of this encounter
--- OUTSIDE RECORDS SUMMARY | 2021-11-05 19:26 | XMS_ITS | Encounter Summary ---
:1975 Author Organization [employer] Address [address] [place] [address] Care Team Providers Name Role Phone Chencho Arauz PA-C Primary Care Provider Unavailable Reason for Visit Reason Comments SKIN LESION Encounter Details Date Type Department Care Team Description 11/20/2011 Initial Consult [facility] [address] Ashleigh Espinal MD Neoplasm of Dermatology [address] [place] [address] unspecified nature [address] [facility] [address] of bone, soft Blvd [place], [place] tissue, [place] [address] (Primary Dx) [address] [phone] Social History Tobacco Use Types Packs/Day Years Used Date Smoking Tobacco: Never Assessed Sex Assigned at Date Recorded Not on file documented as of this encounter Progress Notes Ashleigh Espinal MD - 12/06/2011 10:21 PM CDT Chief complaint: skin lesion HPI: Jose Luis Shipley is a 36 y.o. male here for evaluation of skin lesion on the nose. Symptoms include: asymptomatic Present for: two years Tried: nothing No history of skin cancer. Denies any painful, bleeding, nonhealing spots. Denies any changing, growing moles. PMH: No past medical history on file. Medications: Current outpatient prescriptions ordered prior to encounter Medication Sig Dispense Refill ??? hyoscyamine (LEVSIN/SL) 0.125 mg SL tablet Take 1 tablet by mouth every 4 hours as needed for Cramping. 30 tablet 0 Allergies: No Known Allergies FH: negative SH: History Social History ??? Marital Status: Spouse Name: N/A Number of Children: N/A ??? Years of Education: N/A Occupational History ??? Not on file. Social History Main Topics ??? Smoking status: Never Smoker ??? Smokeless tobacco: Never Used ??? Alcohol Use: Yes Alcoholic Drinks/day: Amount:3-4 drinks; Freq:2-4/Month ; ??? Drug Use: ??? Sexually Active: Other Topics Concern ??? Not on file Social History Narrative ??? No narrative on file ROS: Complete 8 pt ROS obtained and negative. See HPI for pertinent positives. PE: Healthy appearing male in no acute distress. Alert and oriented x 3. Exam includes : face Pertinent findings include: -right nasal bridge 3 x 2 mm skin colored papule A/P: 1. Fibrous papule on the right nasal bridge. reassurance provided. If wanted to be removed discussedshave removal process. 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 IKailey, assisted Ashleigh Espinal MD in documenting services performed at this visit on 11/20/2011 at 3:33 PM. Cesia Oswald RN assisted in documenting services performed at this visit on 11/20/2011 at 3:33 PM documented in this encounter Plan of Treatment Not on filedocumented as of this encounter Visit Diagnoses Diagnosis Neoplasm of unspecified nature of bone, soft tissue, and skin ([facility]) - Primary Neoplasm of unspecified nature of bone, soft tissue, and skin documented in this encounter Care Teams Container Finisher Relationship Specialty Start Date End Date Chencho Arauz PA-C PCP - General 05/14/1012/16/11 documented as of this encounter
--- OUTSIDE RECORDS SUMMARY | 2021-11-05 19:26 | XMS_ITS | Encounter Summary ---
:1975 Author Organization [employer] Address [address] [place] [address] Care Team Providers Name Role Phone Ge Lawler MD Primary Care Provider Reason for Visit Reason Comments Appt. Needed Encounter Details Date Type Department Care Team Description 12/11/2011 Telephone [facility] [address] S[address], Jolly PRN, Appt. Needed Gastroenterology [facility] [address] [place] [address] [place] [address] [phone] Social History Tobacco Use Types Packs/Day Years Used Date Smoking Tobacco: Never Assessed Sex Assigned at Date Recorded Not on file documented as of this encounter Nursing Notes Stefano Ponce RN - 12/17/2011 1:19 PM CST 3rd message left. ISH MASSEUSE Rissa Gonzalez - 12/12/2011 9:27 AM CDT Left message to call back. Ida Kowalski RN - 12/12/2011 9:24 AM CDT Message left for pt to call back. Dee Dee Soto APRN, MATT - 12/11/2011 6:42 PM CDT Ordered. Abd pain with abnormal KUB. Rissa Gonzalez - 12/11/2011 3:03 PM CDT Pt. calling with questions regarding colonoscopy procedure. He is agreeable to proceeding with test as recommended. Please enter order in Epic. documented in this encounter Plan of Treatment Not on filedocumented as of this encounter Visit Diagnoses Diagnosis Abdominal pain, generalized - Primary documented in this encounter Care Teams Concessionist Relationship Specialty Start Date End Date Ge Lawler MD PCP - General Family Practice 12/17/11 10/11/15 [address] [place] [address] documented as of this encounter
--- OUTSIDE RECORDS SUMMARY | 2021-11-05 19:26 | XMS_ITS | Encounter Summary ---
:1975 Author Organization [facility] Address [address] [place] [address] Care Team Providers Name Role Phone Ge Lawler MD Primary Care Provider Reason for Visit Reason Comments Otitis Media Encounter Details Date Type Department Care Team Description 10/12/2013 Office Visit [facility] [address] [place] Che[place] loss, Audiology conductive, unilateral [address] [facility] (Primary Dx) [address] [place], [place] [id number] Social History Tobacco Use Types Packs/Day Years Used Date Smoking Tobacco: Never Alcohol Use Standard Drinks/Week Comments Yes 1.7 (1 standard drink = 0.6 oz pure alco hol) Sex Assigned at Date Recorded Not on file documented as of this encounter Progress Notes [place] Cheek - 10/12/2013 4:37 PM CDT Subjective: Jose Luis Shipley, 38 y.o., was seen for an audiological evaluation upon order from Agustin Kenney PA-C. The patient denies ear pain, pressure, tinnitus, dizziness, previous ear surgery, family history ofhearing loss, history of noise exposure. Please see Agustin Kenney PA-C's note from today's date for further case history. Objective: Otoscopy revealed clear ear canals, bilaterally. Pure tone audiometric testing revealed hearing within normal limits in the right and a mild conductive hearing loss rising to within normal limits in the left. Speech bilingual medical receptionist thresholds were obtained at 10 dBHL for the right ear and 20 dBHL for the left ear. Word recognition at 50 dBHL was 96% for the right ear and at 60 dBHL was 100% for the left ear. Tympanometry revealed normal ear canal volume, pressure and static compliance, for the right ear. The left ear had normal ear canal volume but no pressure or static compliance (type B tympanogram) suggestive of middle ear pathology. Assessment: Communicatively significant hearing within normal limits in the right and a mild conductive hearing loss rising to within normal limits in the left. Tympanometry was normal,in the right ear, and abnormal in the left. Speech bilingual medical receptionist thresholds were in good agreement with the pure tone thresholds. Word recognition for both ears was considered to be good at a conversational level. Plan: These results were discussed with the patient. Please see Agustin Kenney PA-C's note from today's date for further recommendations. documented in this encounter Plan of Treatment Not on filedocumented as of this encounter Visit Diagnoses Diagnosis Hearing loss, conductive, unilateral - P rimary Conductive hearing loss, unilateral documented in this encounter Care Teams Crtt Relationship Specialty Start Date End Date Ge Lawler MD PCP - General Family Practice 12/17/11 10/11/15 [address] [place] [address] documented as of this encounter
--- OUTSIDE RECORDS SUMMARY | 2021-11-05 19:26 | XMS_ITS | Encounter Summary ---
:1975 Author Organization [facility] Address [address] [place] [address] Care Team Providers Name Role Phone Ge Lawler MD Primary Care Provider Reason for Visit Reason Comments HAND PAIN Encounter Details Date Type Department Care Team Description 05/13/2014 Surgical Consult [facility] Nick Landaverde Fing er injury, CENTER MISSY left, initial [address] [facility] [address] encounter (Primary [place], [place] Dx) [address] [phone] Social History Tobacco Use Types Packs/Day Years Used Date Smoking Tobacco: Never Alcohol Use Standard Drinks/Week Comments Yes 1.7 (1 standard drink = 0.6 oz pure alco hol) Sex Assigned at Date Recorded Not on file documented as of this encounter Last Filed Vital Signs Vital Sign Reading Time Taken Comments Blood Pressure - - Pulse - - Temperature - - Respiratory Rate - - Oxygen Saturation - - Inhaled Oxygen Concentration - - Weight 79.4 kg (175 lb) 05/13/2014 9:12 AM CDT Height 180.3 cm (5' 11) 05/13/2014 9:12 AM CDT Body Mass Index 24.41 05/13/2014 9:12 AM CDT documented in this encounter Progress Notes Nick Landaverde PA-C - 05/13/2014 9:20 AM CDT Progress Notes signed by Nick Landaverde PA-C at 05/17/14 0806 Author: Nick Landaverde PA-C Service: (none) Author Type: Physician Athletic Director Filed: 05/17/14 0806 Note Time: 05/13/14 1357 Status: Signed Store Management Trainee: Nick Landaverde PA-C (Physician Athletic Director) NAME: JOSE LUIS SHIPLEY MR#: [id number] CSN: [id number] AUTHENTICATING CLINICIAN: Nick Landaverde PA-C CONFIRM #: [id number] LOC: 711 CLINIC PROGRESS NOTE DATE OF VISIT: 05/13/2014 : 1975 Mr. Shipley is in clinic today for examination of his left 3rd finger. He complains of increasing pain about that of his PIP joint which he sprained when he was playing basketball 2 months ago. He has had increasing pain and difficulty with active range of motion. He was seen by Dr. Jones back in 2013 for his left index finger. Now it is his left ring finger, and it is worse with activities and improves with rest and ice. Denies any specific trauma. He has been working on gentle range of motion exercises. Denies of other injuries. He has been using rest, ice, and modification of activities. CURRENT MEDICAL PROBLEMS: None. MEDICATIONS: None. ALLERGIES: None. PREVIOUS SURGERIES: Include a shoulder surgery. SOCIAL: The patient is with 2 children. 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 He denies any tobacco use and drinks occasionally. REVIEW OF SYSTEMS: Denying any history of heart, lung, liver, renal, GI, cancers, diabetes, or arthritis. FAMILY HISTORY: Significant for grandparents with cancer and heart disease. Denying anesthesia complications, bleeding disorder, diabetes, stroke, rheumatoid arthritis, or osteoporosis. EXAM: Today demonstrates a healthy 39-year-old right-hand dominant male in no acute distress. Height and weight of 71 inches and 175 pounds. Bilateral hand exam demonstrates skin that is cool to touch. He has tenderness to palpation about that of his PIP joint of his left ring finger. He has full range of motion. Ligaments are stable. All tendons are intact with 5/5 strength. He has a 2+ radial pulse and is neurovascularly intact to distalcapillary refill. Radiographs were obtained today and independently reviewed. These demonstrated no evidence of obvious acute bony abnormalities. IMPRESSION: Capsular sprain of the left 4th proximal interphalangeal joint. PLAN: I discussed with the patient at this point I recommended conservative management options, increasinghis activities as he feels comfortable. I discussed with him that it is going to take quite some time to fully resolve, up to 12 months. The patient was satisfied with this and all questions were answered. JCS:EZIO C: R:05/13/14 13:13 CONFIRM#:[id number] documented in this encounter Plan of Treatment Not on filedocumented as of this encounter Procedures Procedure Name Priority Date/Time Associated Diagnosis Comme nts XR FINGER LT RING Routine 05/13/2014 8:10 AM Finger injury, le ft, Results for this 2+ VIEWS CDT initial encounter procedure are in the results section. documented in this encounter Results XR Finger Lt Ring (05/13/2014 8:10 AM CDT) Anatomical Region Laterality Modality Upper Extremity, Hand Other Specimen (Source) Anatomical Location Collection Method / Collectio n Time Received Time / Laterality Volume Narrative 05/13/2014 8:17 AM CDT COMPARISON: ??None. FINDINGS: ??No definite fracture, bone o r joint abnormality or radiopaque foreign body is identified. Procedure Note Wing Belcher MD - 07/29/2015Formatti ng of this note might be different from the original. COMPARISON: None. FINDINGS: No definite fracture, bone or joint abnormality or radiopaque foreign body is identified. Nick Landaverde PA-C RAD GD documented in this encounter Visit Diagnoses Diagnosis Finger injury, left, initial encounter - Primary documented in this encounter Care Teams Heater Mechanic Relationship Specialty Start Date End Date Ge Lawler MD PCP - General Family Practice 12/17/11 10/11/15 [address] [place] [address] documented as of this encounter
--- OUTSIDE RECORDS SUMMARY | 2021-11-05 19:26 | XMS_ITS | Encounter Summary ---
:1975 Author Organization [employer] [facility] Address [address] [place] [address] Care Team Providers Name Role Phone Ge Lawler MD Primary Care Provider Reason for Visit Reason Comments Sterilization Encounter Details Date Type Department Care Team Description 03/04/[address] [facility] [address] [facility] (Primary Urology MD Patti Dx) [address] [facility] [address] [place] [address] [phone] Social History Tobacco Use Types Packs/Day Years Used Date Smoking Tobacco: Never Alcohol Use Standard Drinks/Week Comments Yes 1.7 (1 standard drink = 0.6 oz pure alco hol) Sex Assigned at Date Recorded Not on file documented as of this encounter Progress Notes Santo Paula MD - 03/04/2014 10:36 AM CST Urology procedure note ?? Procedure: Vasectomy ?? The procedure of bilateral vasectomy was thoroughly discussed with the patient at the vasectomy consult.?? The patient returns today for the procedure.?? I was able to communicate with the patient and his identification was verified.?? The reason for the visit was confirmed.?? The informed consent wasobtained, and granted for the procedure.?? The patient reiterates that he desires irreversible sterilization.?? He understands the risks and benefits of the procedure. ?? PROCEDURE: The patient was sterilely prepped. ??The right vas deferens palpated through the skin.?? 1% lidocaine mixed with bicarb was then used as local anesthetic. A small incision was made.?? The vas deferens was brought out of the scrotum was cleared of the surrounding tissues.?? The vas was then cut, cauterized and ligated. The procedure was then repeated on the left side using the same incision.?? The incision was then closed using 3-0 chromic.?? Excellent hemostasis was achieved. ?? Routine instructions were given to the patient verbally as well as written in a preprinted printed instruction sheet.?? It was emphasized to the patient that he is not considered safe until an azoospermic example it is submitted 3 months postoperatively.?? The patient will need to use contraception until then.?? He understands that it is his responsibility to bring in the sample.?? The patient was instructed to return to clinic for any bleeding, excess swelling, infection, etc.?? All questions were answered and the patient left in stable condition. ?? Santo Paula MD OR INFORMATION SYSTEMS ARCHITECT documented in this encounter Plan of Treatment Not on filedocumented as of this encounter Visit Diagnoses Diagnosis Sterilization - Primary documented in this encounter Care Teams Info Specialist Relationship Specialty Start Date End Date Ge Lawler MD PCP - General Family Practice 12/17/11 10/11/15 [address] [place] [address] documented as of this encounter
--- OUTSIDE RECORDS SUMMARY | 2021-11-05 19:26 | XMS_ITS | Encounter Summary ---
:1975 Author Organization [facility] Address [address], [place] [address] Care Team Providers Name Role Phone [facility], Clinician Primary Care Provider Unavailable Reason for Referral Procedure/Equipment (Routine) - Incomplete Specialty Diagnoses / Procedures Referred By Contact Refer red To Contact Diagnoses Acute pain of right knee Topher Saldivar MD Procedures XR Knee Lt 1-2 Views Comparison [address] [place], [place] [address] Referral ID Status Reason Start Date Expiration Date Visits V isits Requested Authorized [id number] Incomplete 05/14/2021 08/13/2022 1 1 Procedure/Equipment (Routine) - Incomplete Specialty Diagnoses / Procedures Referred By Contact Refer red To Contact Diagnoses Acute pain of right knee Topher Saldivar MD Procedures XR Knee Rt 3 Views [address] [facility] [place] [place] [address] Referral ID Status Reason Start Date Expiration Date Visits V isits Requested Authorized [id number] Incomplete 05/14/2021 08/13/2022 1 1 Reason for Visit Reason Comments Knee Pain or Injury Right knee / twisted on beac 05-08-21 Encounter Details Date Type Department Care Team Description 05/14/2021 Office Visit [facility] Topher Saldivar, Norm p ain of right knee (Primary Dx); Urgent Care MD Sprain of medial collateral ligament of right knee, initial encounter [address] [place], [place] [address] [place] [phone] (Wo rk) Social History Tobacco Use Types Packs/Day Years [...] occasion? Comment: Alcoholic Drinks/day: Amount:3-4 016 drinks; Freq:2-4/ ; Sex Assigned at Date Recorded Not on file documented as of this encounter Last Filed Vital Signs Vital Sign Reading Time Taken Comments Blood Pressure - - Pulse - - Temperature 35.4 ??C (95.8 ??F) 05/14/2021 3:43 PM CDT Respiratory Rate - - Oxygen Saturation - - Inhaled Oxygen Concentration - - Weight 79.4 kg (175 lb) 05/14/2021 3:43 PM CDT Height 180.3 cm (5' 11) 05/14/2021 3:43 PM CDT Body Mass Index 24.41 05/14/2021 3:43 PM CDT documented in this encounter Patient Instructions Patient InstructionsBoLauren garcia, ATC - 05/14/2021 3:[address] Topher Saldivar MD Sports & Orthopaedic Medicine [facility] [place] [facility] Nurse Line: [phone] Please contact Orthopedic Urgent Care line for all requests and questions. Medication Requests: Prescriptions are not filled on Weekends or on Weekdays after 3:00PM For all medication refills: Request a refill using MyChart or contact your Pharmacy To schedule appointments: [phone] Paperwork Requests: FMLA or disability paperwork can be faxed to: [phone] Medical records: [phone] (option 4) [facility] [employer] E-mail Address: [email or web address] Follow up as needed Ice documented in this encounter Progress Notes Topher Saldivar MD - 05/14/2021 12:00 AM CDT NAME: JOSE LUIS SHIPLEY CSN: [id number] CLINIC NOTE DATE OF SERVICE: 05/14/2021 : 1975 Hernandez Shipley here for right knee pain that began on 05/08/2021, when he was playing sand football on a beach and was going down to catch a ball. He felt like he twisted his knee. He had instant pain, but no pop. He has pain over the medial aspect of the knee. He has had mild swelling. He denies instability. Pain is 3/10 to 7/10 and hurts with twisting, running and being stationary for too long. He hasa history of meniscus surgery in the same knee. REVIEW OF SYSTEMS: No fever, rash, numbness and tingling. No diabetes, stomach or joint problems. PAST SURGICAL HISTORY: Right knee meniscus tear and shoulder separation. 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 OBJECTIVE: VITAL SIGNS: Height 5 feet 11 inches, weight 175 pounds. Temperature 95.8. MUSCULOSKELETAL: Right knee positive tenderness over the proximal MCL and medial femoral condyle. No clear effusion. Full flexion, full extension. Varus, valgus, Juancho, posterior drawer stable. Right knee x-rays independently reviewed is negative for acute fracture. ASSESSMENT: Right medial collateral ligament sprain that appears mild. No clear findings for significant ligamentous instability or meniscal tear. PLAN: We discussed conservative treatment ongoing. Offered hinged knee brace and the patient will hold on that for now. He will ice and use dukn-mji-resmdfi pain medication. Expect improvement over thenext 4 weeks. If not improving, consider advanced imaging. TOPHER SALDIVAR MD SAB/AQS /[id number] documented in this encounter Plan of Treatment Not on filedocumented as of this encounter Results XR Knee Lt 1-2 Views Comparison (05/14/2021 3:57 PM CDT) Anatomical Region Laterality Modality Lower Extremity, Knee Digital Radiograph y Specimen (Source) Anatomical Collection Method Collection Time Re ceived Time Location / / Volume Laterality 05/14/2021 3:50 PM CDT Impressions 05/14/2021 4:03 PM CDT COMPARISON: ??None. FINDINGS: ??3 views right knee: ??Bony s tructures appear intact. Joint spaces appear normal. ??No fracture or effusion. ??Alignment is normal. ?? 2 views left knee for comparison: Bones and joint spaces appear within normal limits. Procedure Note Alin Morales MD - 05/14/2021Forma tting of this note might be different from the original. IMPRESSION COMPARISON: None. FINDINGS: 3 views right knee: Bony struc tures appear intact. Joint spaces appear normal. No fracture or effusion. Alignment is normal. 2 views left knee for comparison: Bones and joint spaces appear within normal limits. Topher Saldivar MD RAD GD XR Knee Rt 3 Views (05/14/2021 3:57 PM CDT) Anatomical Region Laterality Modality Lower Extremity, Knee Digital Radiograph y Specimen (Source) Anatomical Collection Method Collection Time Re ceived Time Location / / Volume Laterality 05/14/2021 3:50 PM CDT Impressions 05/14/2021 4:03 PM CDT COMPARISON: ??None. FINDINGS: ??3 views right knee: ??Bony s tructures appear intact. Joint spaces appear normal. ??No fracture or effusion. ??Alignment is normal. ?? 2 views left knee for comparison: Bones and joint spaces appear within normal limits. Procedure Note Alin Morales MD - 05/14/2021Forma tting of this note might be different from the original. IMPRESSION COMPARISON: None. FINDINGS: 3 views right knee: Bony struc tures appear intact. Joint spaces appear normal. No fracture or effusion. Alignment is normal. 2 views left knee for comparison: Bones and joint spaces appear within normal limits. Topher Saldivar MD RAD GD documented in this encounter Visit Diagnoses Diagnosis Acute pain of right knee - Primary Sprain of medial collateral ligament of right knee, initial encounter Acute pain of right knee documented in this encounter Care Teams Catering Attendant Relationship Specialty Start Date [facility] P[facility] - General 09/22/18 [address] [place] [address] documented as of this encounter
--- OUTSIDE RECORDS SUMMARY | 2021-11-05 19:26 | XMS_ITS | Encounter Summary ---
:1975 Author Organization [facility] Address [address], [place] [address] Care Team Providers Name Role Phone Ge Lawler MD Primary Care Provider Reason for Visit Reason Comments EAR,PLUGGED Encounter Details Date Type Department Care Team Description 09/30/2013 Office Visit [facility] [address] Mary Carmen Pitts MD Ear pain (Primary Dx); Internal Medicine [address] loss; [address] Otitis media; [address] [place], [place] [id number] [phone] Social History Tobacco Use Types Packs/Day Years Used Date Smoking Tobacco: Never Alcohol Use Standard Drinks/Week Comments Yes 1.7 (1 standard drink = 0.6 oz pure alco hol) Sex Assigned at Date Recorded Not on file documented as of this encounter Last Filed Vital Signs Vital Sign Reading Time Taken Comments Blood Pressure 110/62 09/30/2013 11:14 AM CDT Pulse - - Temperature - - Respiratory Rate - - Oxygen Saturation - - Inhaled Oxygen Concentration - - Weight 81.2 kg (179 lb) 09/30/2013 11:14 AM CDT Height - - Body Mass Index 24.97 09/08/2013 6:06 PM CDT documented in this encounter Patient Instructions Patient InstructionsMary Carmen Pitts MD - 09/30/2013 11:53 AM CDT Images from the original note were not included. Please call [phone] and ask to speak to my triage nurse if you have any questions. If symptoms not totally resolved in a week, see an ENT. If recurrence in the next 2 months, also seeENT. Please call the Ear Nose and Throat dept. at to schedule your appointment. Swimmer's Ear: After Your Visit Your Care Instructions Swimmer's ear (otitis externa) is inflammation or infection of the ear canal. This is the passage that leads from the outer ear to the eardrum. Any water, sand, or other debris that gets into the ear canal and stays there can cause swimmer's ear. Putting cotton swabs or other items in the ear to cleanit can also cause this problem. Swimmer's ear can be very painful. But you can treat the pain and infection with medicines. You should feel better in a few days. Follow-up care is a phillips part of your treatment and safety. Be sure to make and go to all appointments, and call your doctor if you are having problems. It's also a good idea to know your test results and keep a list of the medicines you take. How can you care for yourself at home? Cleaning and care ?? Use antibiotic drops as your doctor directs. ?? Do not insert ear drops (other than the antibiotic ear drops) or anything else into the ear unless your doctor has told you to. ?? Avoid getting water in the ear until the problem clears up. Use cotton lightly coated with petroleum jelly as an earplug. Do not use plastic earplugs. ?? Use a natural sciences department chair set on low to carefully dry the ear after you shower. ?? To ease ear pain, hold a warm washcloth against your ear. ?? Take pain medicines exactly as directed. ?? If the doctor gave you a prescription medicine for pain, take it as prescribed. ?? If you are not taking a prescription pain medicine, ask your doctor if you can take an rahj-edk-mbjnfue medicine. Inserting ear drops ?? Warm the drops to body temperature by rolling the container in your hands. Or you can place it paul cup of warm water for a few minutes. ?? Lie down, with your ear facing up. ?? Place 3 to 5 drops inside the ear. Gently wiggle the outer ear or pull the ear up and back to help the drops get into the ear. When should you call for help? Call your doctor now or seek immediate medical care if: ?? You have a new or higher fever. ?? You have new or worse pain, swelling, warmth, or redness around or behind your ear. ?? You have new or increasing pus or blood draining from your ear. Watch closely for changes in your health, and be sure to contact your doctor if: ?? You are not getting better after 2 days (48 hours). Where can you learn more? Go to www.[email or web address].net/patiented. Enter C706 in the search box to learn more about Swimmer's Ear: After Your Visit. Last Revised: November 17, 2012 ?? [id number] [employer]. Care instructions adapted under license by your healthcare professional. If you have questions about a medical condition or this instruction, always ask your healthcare professional. [employer] disclaims any warranty or liability for your use of this information. documented in this encounter Progress Notes Mary Carmen Pitts MD - 10/07/2013 4:41 PM CDT ID/CC/HPI: [id number] y.o.male here for Ear Fullness Jose Luis has been having right ear problems the past couple of weeks. A few weeks ago he had ear pain, was seen in urgent care and treated with oral steroids for nonspecific otalgia. That helps symptoms for a couple of days, but then he developed a sense of right ear pressure and muffled hearing. He has waxing and waning ear pain. No fevers, chills, runny nose, nasal congestion, sore throat to suggest upper respiratory infection. He has been doing a lot of swimming at [place], and both times it is ear has felt worse has been shortly after a weekend trip up to the [place]. He's not having any ear drainage. Objective: Vital Signs: Reviewed in Epic General: Appears stated age, NAD. Eyes: No scleral icterus or conjunctival injection. ENT: right external canal with erythema, and whitish debris originally obstructing the external canal masses I could not see the tympanic membranes. Ear wash was done, and after ear wash was done reevaluation showed right TM looks opaque with cloudy fluid behind it. Left TM, external canal normal. Villanueva test lateralizes to the bad ear, Rinne test normal on the right with air conduction louder than bone conduction. Lymphatic: No submandibular, cervical, supraclavicular lymphadenopathy. Assessment/Plan: Jose Luis was seen today for ear fullness. Diagnoses and associated orders for this visit: Ear pain - Nursing Communication Hearing loss Office hearing test with Agustin and Villanueva test does not suggest concerning sensorineural cause of hearing loss. Otitis media - amoxicillin (AMOXIL) 500 mg capsule; Take 1 capsule by mouth 2 times daily for 5 days. External otitis - acetic acid-hydrocortisone (VOSOL-HC) otic solution; Place 3 drops into the right ear every 4 hours for 7 days. Gave handout on how to prevent swimmer's ear. Recommended followup with ENT if symptoms not resolving with this treatment. Laine Holland - 10/07/2013 4:41 PM CDT Cerumen removal performed on bilateral ear per provider order. Exam : Ear canal visualized and cerumen present. Pre - exam done by Clinician. Post - exam by Clinician. Symptoms: Ear Fullness - no Pain * - no Hearing loss -no Tinnitus - no Dizziness - no Ear Drainage - no Other - History: Ear Surgery*- no TM Rupture* - no Hearing Aid -no Ear Medication - yes ; no Ear Infection - yes ; no Treatment: Cerumen removed by flushing with : Cerumenex - Filled the affected ear canal, and waited 15 to 30 minutes before irrigation. yes Warm water or saline solution - Filled the affected ear canal with water or saline solution, and waited 15 minutes before irrigation. Patient tolerated procedure well. yes Patient became dizzy during procedure no- unable to tolerate and procedure stopped. no Results: Cerumen successfully removed. Cerumen removal incomplete after # of attempts. Plan: F/U PRN F/U appointment in # days, weeks Referred to dept documented in this encounter Plan of Treatment Not on filedocumented as of this encounter Visit Diagnoses Diagnosis Ear pain - Primary Otalgia, unspecified Hearing loss Unspecified hearing loss Otitis media Unspecified otitis media External otitis Infective otitis externa, unspecified documented in this encounter Care Teams Earth Science Technical Officer Relationship Specialty Start Date End Date Ge Lawler MD PCP - General Family Practice 12/17/11 10/11/15 [address] [place] [address] documented as of this encounter
--- OUTSIDE RECORDS SUMMARY | 2021-11-05 19:26 | XMS_ITS | Encounter Summary ---
:1975 Author Organization [facility] Address [address] [place] [address] Care Team Providers Name Role Phone Chencho Arauz PA-C Primary Care Provider Unavailable Reason for Visit Reason Comments Remove [place] Encounter Details Date Type Department Care Team Description 05/19/2017 Office Visit [facility] [place] is Sonya Marley, Encounter for staple [address] [facility] [facility] removal (Primary Dx) [place], [place] [address] [phone] [place] [address] Social History Tobacco Use Types Packs/Day Years [...] Sign Reading Time Taken Comments Blood Pressure 130/63 05/19/2017 7:23 PM CDT Pulse 64 05/19/2017 7:23 PM CDT Temperature 36 ??C (96.8 ??F) 05/19/2017 7:23 PM CDT Respiratory Rate 24 05/19/2017 7:23 PM CDT Oxygen Saturation - - Inhaled Oxygen Concentration - - Weight 83 kg (183 lb) 05/19/2017 7:23 PM CDT Height - - Body Mass Index 25.52 05/13/2017 4:10 PM CDT documented in this encounter Progress Notes Sonya Marley [facility] - 05/19/2017 7:20 PM CDT Historical: Chief Complaint Patient presents with ??? Remove Calderon Other Symptoms Description: Staple removal How long have you had the symptoms? N/A How frequent are your symptoms: N/A What seems to trigger or make symptoms worse? N/A What seems to make symptoms better? N/A I have personally reviewed the patient's allergies, medications and past medical history in detail and updated the patient record as necessary. Observed: BP 130/63 Pulse 64 Temp (!) 96.8 ??F (36 ??C) (Oral) Resp 24 Wt 183 lb (83 kg) BMI 25.52 kg/m2 Physical Exam: HEENT: L side frontal area of scalp, 1 staple, incision clean and intact, well healed. Assessment/Plan: 1. Encounter for staple removal Please see orders and patient instructions Christian Leblanc documented in this encounter Plan of Treatment Not on filedocumented as of this encounter Visit Diagnoses Diagnosis Encounter for staple removal - Primary Encounter for removal of sutures documented in this encounter Care Teams Travel Director Relationship Specialty Start Date End Date Chencho Arauz PA-C PCP - General 10/12/1511/27 documented as of this encounter
--- OUTSIDE RECORDS SUMMARY | 2021-11-05 19:26 | XMS_ITS | Encounter Summary ---
:1975 Author Organization [facility] Address [address], [place] [address] Care Team Providers Name Role Phone Ge Lawler MD Primary Care Provider Reason for Visit Reason Comments SWELLING Left elbow. Redness and warm th as well, no pain. Got swollen 4-5 days ago. Encounter Details Date Type Department Care Team Description 12/18/2011 Office Visit Ge Gonzales MD Olecranon bursitis Practice [facility] (Primary Dx) [address] [facility]. [place], [place] [phone] Social History Tobacco Use Types Packs/Day Years Used Date Smoking Tobacco: Never Alcohol Use Standard Drinks/Week Comments Yes 1.7 (1 standard drink = 0.6 oz pure alco hol) Sex Assigned at Date Recorded Not on file documented as of this encounter Last Filed Vital Signs Vital Sign Reading Time Taken Comments Blood Pressure 109/68 12/18/2011 4:24 PM TICKET SORTER Pulse 60 12/18/2011 4:24 PM TICKET SORTER Temperature 36.7 ??C (98 ??F) 12/18/2011 4:24 PM TICKET SORTER Respiratory Rate - - Oxygen Saturation - - Inhaled Oxygen Concentration - - Weight 79.4 kg (175 lb) 12/18/2011 4:24 PM TICKET SORTER Height - - Body Mass Index 24.41 12/17/2011 6:59 PM TICKET SORTER documented in this encounter Patient Instructions Patient InstructionsGe Lawler MD - 12/18/2011 4:46 PM CST Hernandez- This is olecranon bursitis. Two options: 1) Wrap ice and wait 2) Drain and Steroids We are going to do the conservative approach. If this is not better by the week after Thanksgi, or if red, hot and painful, come see me. At that point, draining and medicines would be needed. You are all clear to play sports. If painful, rest it. Best wishes. Sincerely, Ge Lawler MD ET SORTER documented in this encounter Progress Notes Ge Lawler MD - 12/18/2011 4:36 PM CST Jose Luis Shipley is a 36 yr male who presents with the following: Left elbow swelling For the past few days this elbow has been swollen at the olecranon bursa. No trauma. No pain right now. No fevers. Never happened before. He did play tennis over the past week or two. Right handed, no trauma. At the most, in terms of trauma, he has been rolling around the floor with kids. He has been icing. Used some Advil. He used an ILIA bandage per PA guidance last night. He was seen in urgent care last night. They told him that he needed to make an appointment with me today for consideration of bursa aspiration. ROS: As per the HPI, with the following additions: No other health concerns today There is no problem list on file for this patient. No outpatient prescriptions have been marked as taking for the 12/18/11 encounter (Office Visit) Ge Anderson. BP 109/68 Pulse 60 Temp(Src) 98 ??F (36.7 ??C) (Oral) Wt 175 lb (79.379 kg) General: PT appears well, alert and oriented x 3, pleasant and cooperative. Extremities: He is a soft 3 cm in diameter swelling at the left olecranon bursa. This is no overlying skin changes. This is nontender to palpation. I see no signs of skin abrasions or loss of integrityof of this bursa site. He has full range of motion of his left arm. Olecranon bursitis (primary encounter diagnosis) Comment: Left-sided. Plan: Patient and I had a discussion about treatment options for olecranon bursitis. Presently he has no signs of infection, or gouty bursitis. I suspect this is a sterile bursitis. Discussed that he could have knee anesthetize the site and aspirate the bursa contents, and given a steroid injection. Other option would be for him to keep it compressed, use ice, and ibuprofen and there is a good chance this bursa will resolve on its own. We did review risks and benefits of both options, as well as warning signs for septic bursitis. In the end he decides to go the conservative route today. He will come back and see me a week after Thanksgiving if things are not getting any better, or should signs of septic bursitis occur. See AVS for additional patient information. This note was generated with the aid of [employer] voice recognition software and may contain word substitution or spelling errors. Ge Lawler MD 12/18/2011, 4:36 PM ET SORTER documented in this encounter Plan of Treatment Not on filedocumented as of this encounter Visit Diagnoses Diagnosis Olecranon bursitis - Primary documented in this encounter Care Teams Liquor Merchant Relationship Specialty Start Date End Date Ge Lawler MD PCP - General Family Practice 12/17/11 10/11/15 [address] [place] [address] documented as of this encounter
--- OUTSIDE RECORDS SUMMARY | 2021-11-05 19:26 | XMS_ITS | Encounter Summary ---
:1975 Author Organization [employer] Address [address] [address] Care Team Providers Name Role Phone Ge Lawler MD Primary Care Provider Reason for Visit Reason Comments HAND PAIN Encounter Details Date Type Department Care Team Description 11/05/2013 [facility] Nick Jones P ain in joint, hand [address] (Primary Dx) Orthopedics [address] [facility] [address] [facility] [address] [facility] [address] [place] [address] [phone] Social History Tobacco Use Types Packs/Day Years [...] - - Weight 79.4 kg (175 lb) 11/05/2013 2:27 PM CDT Height 180.3 cm (5' 11) 11/05/2013 2:27 PM CDT Body Mass Index 24.41 11/05/2013 2:27 PM CDT documented in this encounter Progress Notes Nick Jones MD - 11/28/2013 9:06 PM CDT Progress Notes signed by Nick Jones MD at 11/29/13 7365 Author: Nick Jones MD Service: (none) Author Type: Physician Filed: 11/29/13 1509 Note Time: 11/29/13 8342 Status: Signed Investigator Utility Bill Complaints: Nick Jones MD (Physician) NAME: JOSE LUIS SHIPLEY MR#: [id number] CSN: [id number] AUTHENTICATING CLINICIAN: Nick Jones MD CONFIRM #: [id number] LOC: 211 CLINIC PROGRESS NOTE DATE OF VISIT: 11/05/2013 : 1975 Mr. Shipley is seen for an injury to his left index finger which happened 6-8 weeks ago when it was jammed. He notes that stretching it and just any physical contact makes his finger hurts, especially the middle joint. He has been mobilizing it which seems to help some. His exercise aggravates. 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 Remainder of past medical history is reviewed in [facility]. MEDICATIONS: Reviewed in [employer]. ALLERGIES: Reviewed in [facility]. Lives with his and 2 children. Nonsmoker. He drinks alcohol socially. Exercises every day. Always wears his seat belt. No chest pain, respiratory distress, or abdominal pain on review of systems. Remainder of complete review of systems is negative. He has had a history of a right shoulder separation EXAM: His left index finger is mildly swollen. He is tender around the PIP joint, more so on the radial side. It is tender to touch. He is neurovascularly intact, however. There is no deformity. He can move the DIP joint, it is slightly decreased because of the swelling. The same with the PIP. MCP moves normally. X-ray is done which shows no fracture. ASSESSMENT: Index finger capsular sprain. PLAN: Reviewed the findings. Discussed he will likely have pain for another month or 6 weeks. Discussed isha taping rather than immobilization as that is likely to cause him some stiffness. He will followupfor continued difficulties in another 6 weeks. CLAUDIO:EZIO C: CONFIRM #: [id number] documented in this encounter Plan of Treatment Not on filedocumented as of this encounter Visit Diagnoses Diagnosis Pain in joint, hand - Primary documented in this encounter Care Teams Table Tender Relationship Specialty Start Date End Date Ge Lawler MD PCP - General Family Practice 12/17/11 10/11/15 [address] [place] [address] documented as of this encounter
--- OUTSIDE RECORDS SUMMARY | 2021-11-05 19:26 | XMS_ITS | Encounter Summary ---
:1975 Author Organization [employer] Address [address] [place] [address] Care Team Providers Name Role Phone Chencho Arauz PA-C Primary Care Provider Unavailable Reason for Visit Reason Comments LACERATION, HEAD AREA Encounter Details Date Type Department Care Team Description 05/13/2017 Office Visit [facility] Tyesha Norman Laceration of scalp, [address] MISSY Fontenot initial encounter [place], [place] [address] (Primary Dx) [phone] [address] [place] [address] Social History Tobacco Use Types Packs/Day Years [...] Sign Reading Time Taken Comments Blood Pressure 112/79 05/13/2017 4:10 PM CDT Pulse 57 05/13/2017 4:10 PM CDT Temperature 36.1 ??C (96.9 ??F) 05/13/2017 4:10 PM CDT Respiratory Rate - - Oxygen Saturation 100% 05/13/2017 4:10 PM CDT Inhaled Oxygen Concentration - - Weight 82.6 kg (182 lb) 05/13/2017 4:10 PM CDT Height 180.3 cm (5' 11) 05/13/2017 4:10 PM CDT Body Mass Index 25.38 05/13/2017 4:10 PM CDT documented in this encounter Patient Instructions Patient InstructionsTyesha Norman - 05/13/2017 4:10 PM CDT Images from the original note were not included. Keep area clean and dry Return in 5-7 days for staple removal Ice as needed as well as tylenol and motrin for headache ER for concerning headache, vision changes, sensory changes, vomiting or new or worrisome changes Return for fever or chills or signs of infection Scalp Cut Closed With [place] or Stitches: Care Instructions Your Care Instructions A scalp laceration is a cut on your head. You may be able to see the cut, or it may be covered by your hair. The cut may throb or feel tender, and you may have a headache. The doctor used christian or stitches to close the cut. This helps the cut heal and reduces scarring. Your doctor will tell you when to have your stitches or christian removed. This is usually in 7 to 14 days. How long you'll be told to wait depends on where the cut is located, how big and how deep the cut is, and what your general health is like. Your scalp may itch as it heals. This is more likely if the doctor trimmed or shaved your hair in order to place the christian or stitches. The doctor has checked you carefully, but problems can develop later. If you notice any problems or new symptoms, get medical treatment right away. Follow-up care is a phillips part of your treatment and safety. Be sure to make and go to all appointments, and call your doctor if you are having problems. It's also a good idea to know your test results and keep a list of the medicines you take. How can you care for yourself at home? ?? Keep the cut dry for the first 24 to 48 hours. After this, you can shower if your doctor okays it. Pat the cut dry. ?? Don't soak the cut, such as in a bathtub. Your doctor will tell you when it's safe to get the cutwet. ?? If your doctor told you how to care for your cut, follow your doctor's instructions. If you did not get instructions, follow this general advice: ?? After the first 24 to 48 hours, wash around the cut with clean water 2 times a day. Don't use hydrogen peroxide or alcohol, which can slow healing. ?? You may cover the cut with a thin layer of petroleum jelly, such as Vaseline. ?? Apply more petroleum jelly as needed. ?? Avoid any activity that could cause your cut to reopen. ?? Do not remove the christian or stitches on your own. Your doctor will tell you when to come back tohave them removed. ?? Be safe with medicines. Read and follow all instructions on the label. ?? If the doctor gave you a prescription medicine for pain, take it as prescribed. ?? If you are not taking a prescription pain medicine, ask your doctor if you can take an glia-mjq-xbzagcv medicine. When should you call for help? Call 911 anytime you think you may need emergency care. For example, call if: ? ?? Blood is pumping from the cut or does not stop or slow down with pressure. ?Call your doctor now or seek immediate medical care if: ? ?? You have new pain or your pain gets worse. ? ?? You have tingling, weakness, or numbness near the cut. ? ?? The cut starts to bleed a lot. Oozing small amounts of blood is normal. ? ?? You have symptoms of infection, such as: ?? Increased pain, swelling, warmth, or redness around the cut. ?? Red streaks leading from the cut. ?? Pus draining from the cut. ?? A fever. ?Watch closely for changes in your health, and be sure to contact your doctor if: ? ?? The cut reopens. ? ?? You do not get better as expected. Where can you learn more? 1. Go to [employer] or [employer]. 2. Enter X146 in the search box. Current as of: April 29, 2016 Content Version: 11.5 ?? [id number] Uplike. documented in this encounter Progress Notes Tyesha Norman - 05/13/2017 4:10 PM CDT Historical: Chief Complaint Patient presents with ??? LACERATION, HEAD AREA HPI/ROS: 42 y.o. male who presents for evaluation of a laceration Patient sustained laceration to his scalp, he does have diffuse box. No loss of consciousness. This happened about an hour ago. Patient did feel slightly lightheaded after the incident. No associated nausea or vomiting, no vision changes or ringing of the ears. Patient is not anticoagulated. No associated vertigo. No sensory changes. No other injury. Tetanus was last updated in 2013. Review of Systems Eyes: Negative for blurred vision. Gastrointestinal: Negative for nausea and vomiting. Skin: Laceration Neurological: Negative for dizziness, tingling, sensory change, focal weakness, loss of consciousness and headaches. Endo/Heme/Allergies: Negative. I have personally reviewed the patient's allergies, medications, past medical history and social history in detail and updated the patient record as necessary. Observed: BP 112/79 Pulse (!) 57 Temp (!) 96.9 ??F (36.1 ??C) (Tympanic) Ht 5' 11 (1.803 m) Wt 182 lb(82.6 kg) SpO2 100% BMI 25.38 kg/m2 Physical Exam: There is a linear laceration measuring approximately 1 cm in length on the left parietal scalp. Examination of the wound for foreign bodies and devitalized tissue showed none. Examination of the surrounding area for neural or vascular damage showed none. General Appearance: Alert in no distress HEENT: PERRL, EOM, no raccoon eyes or Tapia sign Skin: Laceration as described above otherwise no other skin lesions or injuries. Neurolgic: CN II-XII intact, speech clear, GUILLAUME Assessment/Plan: Encounter Diagnosis Name Primary? Laceration of scalp, initial encounter Yes Patient sustained laceration to scalp. Superficial in nature. Tetanus is up-to-date. Wound cleanse, single staple placed without anesthesia. Small amount of Dermabond applied at the lateral wound edge.Patient will return in one week for staple removal. Please see orders and patient instructions. Concerning signs and symptoms along with when to return to Urgent Care or to go to ED discussed withpatient and patient expressed understanding. Patient questions answered. Tyesha Norman PA-C 05/13/2017, 4:32 PM documented in this encounter Plan of Treatment Not on filedocumented as of this encounter Visit Diagnoses Diagnosis Laceration of scalp, initial encounter - Primary documented in this encounter Care Teams Abrasive Wheel Molder Relationship Specialty Start Date End Date Chencho Arauz PA-C PCP - General 10/12/1511/27 documented as of this encounter
--- OUTSIDE RECORDS SUMMARY | 2021-11-05 19:26 | XMS_ITS | Encounter Summary ---
:1975 Author Organization [employer] Address [address] [place] [address] Care Team Providers Name Role Phone Chencho Arauz PA-C Primary Care Provider Unavailable Reason for Visit Reason Comments Physical Therapy Therapies (Routine) - Closed Specialty Diagnoses / Procedures Referred By Contact Refer red To Contact Diagnoses Right knee pain, unspecified chronicity Angelina Nowak MD [address] [facility] [place] [address] Referral ID Status Reason Start Date Expiration Date Visits Requ ested Visits Authorized [id number] Closed 04/04/2016 06/03/2016 1 1 Encounter Details Date Type Department Care Team Description 04/20/2016 Initial Consult [facility] and Ed Nithya Perez Acute pain of right knee (Primary Dx); Center, Physical L, PT Weakness of right lower extremity Therapy [address] [facility] [address] [place], [place] [address] [address] [place], [place] [phone] (Work) [phone] Social History Tobacco Use Types Packs/Day Years Used Date Smoking Tobacco: Never Smokeless Tobacco: Never Alcohol Use Standard Drinks/Week Comments Yes 3 (1 standard drink = 0.6 oz pure Alcoho lic Drinks/day: Amount:3-4 alcohol) drinks; Freq:- ; Alcohol Habits Answer Date Recorded How [...] documented as of this encounter Progress Notes Nithya Perez, PT - 04/20/2016 10:45 AM CST Physical Therapy Knee Evaluation/Plan of Care Hernandez Visit Number: 1 Preferred One Initial Certification Period: 04/20/2016 to 07/19/16 Referring [...] where it isn't a chronic problem SUBJECTIVE: Pain Ratin/10 (worst in last 24 hours), 1/10 (current and best last 24 hours) Falls in the Past Year: No. Past Medical History: See EMR for details regarding past medical history, medications and drug allergies. History is unremarkable. Review of Systems: Denies fever, chills, night sweats, unrelenting night pain, unexplained weight loss, bowel/bladder changes, saddle sensation changes Past Medical History Diagnosis Date ??? Abdominal pain, unspecified site 03/04/2012 recurrent Past Surgical History Procedure Laterality Date ??? Shoulder surgery OBJECTIVE: General: Mood, orientation, behavior were appropriate. Patient was alert and oriented. Observation/Gait: no deviations noted Edema: none noted ROM (heukbsuyp-lyj-bsbj): WNL without symptoms Joint mobility: Patellar: WNL without pain Flexibility: hamstrings 90/90 test: -25 degrees B Strength: hip ABD 4/5 with ITB dominant form Palpation: slight tenderness to palpation at inferior patellar pole Special Tests (+ is a positive finding, - is a negative finding): resisted knee extension: provokes pain Functional Tests: Single leg squat: L slight dynamic valgus, increases with more reps; R 25% knee flexion due to pain,immediate valgus Double leg squat: increased anterior translation, slight offloading to L, R knee pain provoked 50% flexion Prone plank endurance test: 50 seconds Side plank: 35 seconds on R limited by shoulder pain, 45 seconds on L TREATMENT TODAY: Physical Therapy Evaluation (CPT 58781): An evaluation was performed. The patient was determined to have low complexity based on history, examination, clinical presentation of the patient and the PT's clinical decision making. The patient was educated on the condition, planned therapy intervention and expectations from treatment. Goals were a collaborative effort of the therapist and patient. Neuromuscular re-education (CPT 78836) x 20 minutes: Patellar taping - reduced symptoms with step down task Access Code: [email or web address] Exercises Alternating Single Leg Bridge - to fatigue reps - 5 hold - 1x daily Plank on Forearms with Scapular Protraction Retraction AROM - 3 reps - 60 hold - 4-5x weekly Bridge with Upper Back on Kosovan Ball - fatigue reps - 2 sets - 2-3 weekly Single Leg Balance with Clock Reach - to fatigue reps - 1x daily - focus on dynamic control of knee valgus Timed Code Treatment Minutes: 20 min Total Treatment Minutes: 60 min Plan for next treatment session: progress hip and lumbopelvic strength and motor control to reduce dynamic valgus Education/Handouts: Diagnosis Education, related anatomy and biomechanics Response to treatment: Decreased pain, Good understanding of HEP ASSESSMENT: Therapist Impression: The patient is a pleasant 41 year old male presenting with R anterior knee pain associated with decreased strength and motor control of the lower quadrant during closed chain functional activities. In particular, he has decreased R hip strength and R knee proprioception resultingin dynamic valgus during closed chain activities. His symptoms were reduced with patellar taping during a step down task, suggesting patellar position is contributing to his symptoms. However the focusfor treatment should be on dynamic control of the femur vs patellar position. He would benefit from skilled PT to address these impairments and to allow him to return to his prior level of function. Barriers to Learning: none Rehab Prognosis: Excellen PLAN: Planned Intervention/Education: Evaluation, Re-Evaluation, Therapeutic Exercise, Manual Therapy, Neuromuscular Re-education, Self Care/Home Management, Therapeutic Activities PT Frequency/Duration: 1-2 x/week for 12 weeks for a total of 8 visits Discharge Plan: Goal achievement, goal achievement with home exercise program or if progress plateaus. Informed Consent: Risks, benefits and alternatives to treatment have been explained. Patient and/or family in agreement with care plan. EXPECTED FUNCTIONAL OUTCOMES/GOALS: HEP/Independent Management: Demonstrate independence [...] to at least 85 in 12 weeks. Evaluation and Plan of Care completed by: Nithya Perez DPT 12:31 PM 04/20/2016 The carpenter assistant is completed by the therapist and the referring clinician's electronic signature certifies medical necessity for the plan above. FORWARDER documented in this encounter Plan of Treatment Scheduled Referrals Name Type Priority Associated Diagnoses Order [facility] Physical Therapy Referral Routine Right knee pain, unspeci fied Ordered: 04/04/2016 chronicity documented as of this encounter Visit Diagnoses Diagnosis Acute pain of right knee - Primary Weakness of right lower extremity documented in this encounter Care Teams Supply Specialist Relationship Specialty Start Date End Date Chencho Arauz PA-C PCP - General 10/12/1511/27 documented as of this encounter
--- OUTSIDE RECORDS SUMMARY | 2021-11-05 19:26 | XMS_ITS | Encounter Summary ---
:1975 Author Organization [facility] Address [address] [place] [address] Care Team Providers Name Role Phone Chencho Arauz PA-C Primary Care Provider Unavailable Reason for Visit Reason Comments Physical Therapy Encounter Details Date Type Department Care Team Description 04/23/2016 Office Visit [facility] Miko Pascal, PT Acute pain of right knee (Primary Dx); Center, Physical [address] [facility] Weakness of right lower extremity Therapy [place], [place] [address] [address] [address] [place], [place] [address] [phone] Social History Tobacco Use Types Packs/Day Years [...] encounter Progress Notes Miko Pascal, PT - 04/23/2016 6:10 PM CDT [facility] [place] Physical Therapy Daily Note Visit Number: 2 Preferred One <13 years Initial Certification Period: [...] it isn't a chronic problem SUBJECTIVE: Pain: 1/10 at rest, 5/10 at worst Patient reports he has already noticed improvements in his symtoms from just seeing Rissa earlier this week. He felt the taping was helpful and has been active with is HEP. OBJECTIVE: Today???s Findings: ROM (cvtmmuivy-qws-yzbe): WNL without symptoms Joint mobility: Patellar: WNL without pain Flexibility: hamstrings 90/90 test: -25 degrees B Strength: hip ABD 4/5 with ITB dominant form Palpation: slight tenderness to palpation at inferior patellar pole Functional Tests: Double leg squat: mild anterior loading and valgus Single leg squat: moderate valgus, mild anterior loading TREATMENT TODAY: Neuromuscular re-education (CPT 20948) x 25 minutes: Patellar taping - reduced symptoms with step down task Access Code: [email or web address] Exercises Alternating Single Leg Bridge - to fatigue reps - 5 hold - 1x daily - progressed to pure single leg Plank on Forearms with Scapular Protraction Retraction AROM - 3 reps - 60 hold - 4-5x weekly Bridge with Upper Back on Greenlandic Ball - fatigue reps - 2 sets - 2-3 weekly Single Leg Balance with Clock Reach - to fatigue reps - 1x daily - focus on dynamic control of knee valgus Added: Step up at 8'' step Patient correctly performed all exercises following mild verbal, tactile, and visual cues regarding isolation of intended musculature and to keep exercises pain free, and displayed good understanding of exercise parameters and progression. Neuro Re Education: Performed Walker taping technique in form of medial patellar glide to improve/alter general patellar tracking, quad activation, and patellar fat pad irritation. Patient reporting 50% improved pain with step down from 4'' step following taping. Tape Left on with instructions of when/why to discontinue tape usage. 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 He has responded well to taping and improvements in proximal strength already to this point and is a great candidate for skilled PT. PLAN: Progress HEP/therapeutic exercise as appropriate and able. Manual therapy and modalities for pain control as needed. - review taping EXPECTED FUNCTIONAL OUTCOMES/GOALS: HEP/Independent Management: Demonstrate independence [...] 85 in 12 weeks. Therapist: Miko Pascal PT 6:11 PM 04/23/2016 documented in this encounter Plan of Treatment Not on filedocumented as of this encounter Visit Diagnoses Diagnosis Acute pain of right knee - Primary Weakness of right lower extremity documented in this encounter Care Teams Log Cooker Relationship Specialty Start Date End Date Chencho Arauz PA-C PCP - General 10/12/1511/27 documented as of this encounter
--- OUTSIDE RECORDS SUMMARY | 2021-11-05 19:26 | XMS_ITS | Encounter Summary ---
:1975 Author Organization [facility] Address [address], [place] [address] Care Team Providers Name Role Phone Ge Lawler MD Primary Care Provider Encounter Details Date Type Department Care Team Description 12/17/2011 Notes/Orders Specialty [facility] [address] Gerard Gomez MD Endoscopy [address] [facility] [address] [place], [place] [id number] [place] [address] [phone] Social History Tobacco Use Types Packs/Day Years Used Date Smoking Tobacco: Never Sex Assigned at Date Recorded Not on file documented as of this encounter Plan of Treatment Not on filedocumented as of this encounter Visit Diagnoses Not on filedocumented in this encounter Care Teams Flooring Installer Relationship Specialty Start Date End Date Ge Lawler MD PCP - General Family Practice 12/17/11 10/11/15 [address] [place] [address] documented as of this encounter
--- OUTSIDE RECORDS SUMMARY | 2021-11-05 19:26 | XMS_ITS | Encounter Summary ---
:1975 Author Organization [facility] Address [address] [address] Care Team Providers Name Role Phone Ge Lawler MD Primary Care Provider Reason for Visit Reason Comments CONSULT Encounter Details Date Type Department Care Team Description 10/05/2013 Initial Consult [facility] [address], YUMI ( otitis externa) Ear, Nose, and Throa t MISSY (Primary Dx) [address] [place] [address] Social History Tobacco Use Types Packs/Day Years Used Date Smoking Tobacco: Never Alcohol Use Standard Drinks/Week Comments Yes 1.7 (1 standard drink = 0.6 oz pure alco hol) Sex Assigned at Date Recorded Not on file documented as of this encounter Progress Notes Agustin Keneny PA-C - 10/05/2013 6:21 PM CDT Jose Luis Shipley is a 38 y.o. male who is here for evaluation of otitis externa affecting both ears, with left greater than right currently. The patient has been complaining of otitis externa for a couple of weeks now. He was initially given oral antibiotics only, which did not seem to help. Currently, he is taking acetic acid/hydrocortisone drops, which seemed to help the right ear, but the left is still bothersome to him. He also is continuing amoxicillin orally. His right ear is almost completely resolved, but still feels slightly plugged and irritated. However, the left ear is still draining purulent drainage, and seems to hurt when he touches the outside of the ear and from inside as well. The patient has no history of otitis externa, and is concerned for what may have caused this. No history of diabetes for the patient. He does note some mild hearing loss from being plugged in the left ear. No dizziness. No other concerns. Patient's medications, allergies, past medical, surgical, social and family histories were reviewed and updated as appropriate. Review of Systems A comprehensive review of systems was negative except for: Those listed in HPI. Exam: Patient appears well and healthy and in no apparent distress. Breathing pattern is normal without stridor. Vocal quality and resonance is normal. Head and face is normal in appearance with normalfacial movement and occular motility. External nasal exam is normal. Intranasal exam reveals normal mucosa and septum. Lips, teeth, gums, oral cavity, and oral pharynx are normal, no cleft, normal dentition. Neck, salivary glands and thyroid are normal to palpation and inspection with no masses or asymmetries. Patient is grossly neurologically and developmentally normal. Ears: Overall normal external appearance, no auricular swelling or deformity. No evidence of facial swelling, erythema or cellulitis. Bilateral pinna, tragus, mastoid nontender to palpation. The right ear canal is minimally erythematous without edema. The TM is slightly injected and retracted, but no middle ear fluid, bulging, injection, perforation noted. No obvious purulent debris, drainage, fungalhyphae or spores in the canal and the right side. The left ear canal is mild to moderately erythematous and edematous with some purulent debris which was cleaned using suction. The eardrum is slightly retracted with injection as well, but no perforation, bulging. No obvious fungal hyphae noted. There is purulent debris near eardrum, which is again cleaned using suction. Patient tolerated well. Assessment: Otitis Externa, bilateral. Right ear appears to be improving, while left ear Still seems quite irritated and infected. Plan: Recommend dry ear precautions, stop VoSol drops, start Ciprodex antibiotic ear drops as prescribed. Return for follow-up in 7 days to recheck. If symptoms seem to be worsening, would recommend ear culture at that point, and consider adding Lotrimin ear drops to treat for any fungal infection as well. No evidence of fungal hyphae or spores today. Patient to followup sooner if symptoms worsen or change. Recommend finishing the oral antibiotic. Please note that the above medical documentation was created with voice recognition software and maycontain voice recognition and typographic errors. documented in this encounter Plan of Treatment Not on filedocumented as of this encounter Visit Diagnoses Diagnosis OE (otitis externa) - Primary Infective otitis externa, unspecified documented in this encounter Care Teams Artificial Flowers Dyer Relationship Specialty Start Date End Date Ge Lawler MD PCP - General Family Practice 12/17/11 10/11/15 [address] [place] [address] documented as of this encounter
--- OUTSIDE RECORDS SUMMARY | 2021-11-05 19:26 | XMS_ITS | Encounter Summary ---
:1975 Author Organization [facility] Address [address], [place] [address] Care Team Providers Name Role Phone Chencho Arauz PA-C Primary Care Provider Unavailable Reason for Referral Procedure/Equipment (Routine) - Incomplete Specialty Diagnoses / Procedures Referred By Contact Refer red To Contact Diagnoses Patellar tendinitis of right knee Angelina Nowak MD Procedures Knee neoprene sleeve Pull on ([id number]) [address] [facility] [place], [place] [address] Referral ID Status Reason Start Date Expiration Date Visits V isits Requested Authorized [id number] Incomplete 04/04/2016 07/04/2017 1 1 NT ENGAGEMENT SPECIALIST Therapies (Routine) - Closed Specialty Diagnoses / Procedures Referred By Contact Refer red To Contact Diagnoses Right knee pain, unspecified chronicity Angelina Nowak MD [address] [facility] [place] [place] [address] Referral ID Status Reason Start Date Expiration Date Visits Requ ested Visits Authorized [id number] Closed 04/04/2016 06/03/2016 1 1 Scheduling Instructions Your provider has recommended an appoint ment with [facility]. You may call [phone] to schedule your appoi ntment. If you do not schedule an appointment within the next 1 to 3 business days, we will call you to help arrange your appointment. We suggest you call your [employer] insurance company about your coverage and benefits for this appointment. NT ENGAGEMENT SPECIALIST Reason for Visit Reason Comments Knee Pain or Injury right, DOI 04/03/16 Encounter Details Date Type Department Care Team Description 04/04/2016 Office Visit Angelina Tracey Patella r tendinitis of right knee (Primary Dx); Urgent Care MD Johana Right knee pain, unspecified chronicity [address] [facility] [address] [facility] [place] [address] [place] [phone] (Wo rk) Social History Tobacco Use Types [...] Sign Reading Time Taken Comments Blood Pressure 117/74 04/04/2016 7:23 PM CLIENT ENGAGEMENT SPECIALIST Pulse - - Temperature 36.1 ??C (97 ??F) 04/04/2016 7:23 PM CLIENT ENGAGEMENT SPECIALIST Respiratory Rate - - Oxygen Saturation - - Inhaled Oxygen Concentration - - Weight 79.4 kg (175 lb) 04/04/2016 7:23 PM CLIENT ENGAGEMENT SPECIALIST Height 180.3 cm (5' 11) 04/04/2016 7:23 PM CLIENT ENGAGEMENT SPECIALIST Body Mass Index 24.41 04/04/2016 7:23 PM CLIENT ENGAGEMENT SPECIALIST documented in this encounter Patient Instructions Patient InstructionsLilly Ely CMA - 04/04/2016 7:[address] Angelina Nowak MD Sports & Orthopaedic Medicine [facility] Medication Requests: Prescriptions are not filled on Weekends or on Weekdays after 3:00PM For all medication refills: Request a refill using MyChart or contact your Pharmacy [facility] Nurse Line: [phone] Please contact [facility] Nurse line for all medical requests and questions Software Requirements Engineer: Bhavani June Please call Bhavani for all administrative questions at [phone] MRI Scheduling: To schedule an MRI at [facility] please call [phone] Patella Tendinopathy Genutrain Brace was given today. Physical therapy orders were placed today. Please follow up with Dr. Nowak if your symptoms do not resolve. NT ENGAGEMENT SPECIALIST documented in this encounter Progress Notes Angelina Nowak MD - 04/05/2016 9:54 AM CST NAME: JOSE LUIS SHIPLEY MR#: [id number] CSN: [id number] AUTHENTICATING CLINICIAN: Angelina Nowak MD CONFIRM #: [id number] LOC: 711 CLINIC PROGRESS NOTE DATE OF VISIT: 04/04/2016 : 1975 CHIEF COMPLAINT: Knee pain. This is a 41-year-old gentleman who has had over 10 years worth of patellar tendinitis for which he has done some physical therapy and the symptoms have been on and off. Recently his knee, for the lastseveral months, has actually been feeling quite a bit better but then unfortunately earlier today hewas playing basketball when he went to push and he felt a pulling, tearing feeling in the front of his knee. REVIEW OF SYSTEMS: No fevers, chills, rashes or skin changes. 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 PAST MEDICAL HISTORY: Right shoulder separation and patellar tendinitis, ongoing. PHYSICAL EXAM: Temperature 97.0. Height 5 feet 11 inches. Weight 175 pounds. Pleasant gentleman I saw conjunction with the resident. Exam of his right knee shows him to have overall normal appearance to the knee withno effusion. He is focally tender in the midsubstance of the proximal greater than distal portion ofhis patellar tendon. He has thinning of the tendon on his right knee as compared on his left knee. He is able to actively extend the knee and forward flex the hip and reproduces pain in the specific location of the patellar tendon. There is no joint line pain medial or lateral. No patellar pain medialor lateral. Patellar apprehension test is negative. Ligamentous exam is intact. Amairani's testing re produces pain at the patellar tendon with flexion of the knee beyond 90 degrees. ASSESSMENT: Patellar tendinopathy. PLAN: We discussed that he likely did have partial tearing of the patellar tendon but at this time it would not be a surgical intervention that would be recommended therefore imaging was not done. We discussed different options such as prolotherapy. We gave him a knee sleeve to help support the knee and hispatellar tendon while he is healing this. We recommend 6 weeks of decreased overall activity to allow the patellar tendon to do its best to heal and should he have a rupture he would be seen for consideration of further interventions. HDT: C: R:04/05/16 09:19 CONFIRM#:[id number] NT ENGAGEMENT SPECIALIST documented in this encounter Plan of Treatment Scheduled Referrals Name Type Priority Associated Diagnoses Order S chedule Physical Therapy Referral Routine Right knee pain, unspeci fied Ordered: 04/04/2016 chronicity documented as of this encounter Visit Diagnoses Diagnosis Patellar tendinitis of right knee - Prim kj Patellar tendinitis Right knee pain, unspecified chronicity documented in this encounter Care Teams Counter Intelligence Technician Relationship Specialty Start Date End Date Chencho Arauz PA-C PCP - General 10/12/1511/27 documented as of this encounter
--- OUTSIDE RECORDS SUMMARY | 2021-11-05 19:26 | XMS_ITS | Encounter Summary ---
:1975 Author Organization [facility] Address [address] [place] [address] Care Team Providers Name Role Phone [facility], Clinician Primary Care Provider Unavailable Reason for Visit Procedure/Equipment (Routine) - Incomplete Specialty Diagnoses / Procedures Referred By Contact Refer red To Contact Diagnoses Acute pain of right knee Willy Jung MD Procedures XR Knee Lt 1-2 Views Comparison [address] [facility] [address] [place] [address] Referral ID Status Reason Start Date Expiration Date Visits V isits Requested Authorized [id number] Incomplete 05/14/2021 08/13/2022 1 1 Encounter Details Date Type Department Care Team Description 05/14/2021 [facility]illary [facility] Willy Jung, Acute pain of right Procedure [address] [facility] [address] [facility] [place] [facility] [place] [address] [phone] Social History Tobacco Use Types Packs/Day Years [...] encounter Procedures Procedure Name Priority Date/Time Associated Comments Diagnosis XR KNEE LT 1-2 VIEWS Routine 05/14/2021 3:57 PM Acute pain of right Results for this COMPARISON CDT knee procedure are i n the results section. XR KNEE RT 3 VIEWS Routine 05/14/2021 3:57 PM Acute pain of ri ght Results for this CDT knee procedure are i n the results section. documented in this encounter Results XR Knee Lt 1-2 [...] and joint spaces appear within normal limits. Willy Jung MD RAD GD XR Knee Rt 3 [...] and joint spaces appear within normal limits. Willy Jung MD RAD GD documented in this encounter Visit Diagnoses Diagnosis Acute pain of right knee documented in this encounter Care Teams Body Component Engineer Relationship Specialty Start Date End Date Nelida, Clinician PCP - General 09/22/[address] [facility] [place] [address] documented as of this encounter
--- OUTSIDE RECORDS SUMMARY | 2021-11-05 19:26 | XMS_ITS | Encounter Summary ---
:1975 Author Organization [facility] Address [address] [place] [address] Care Team Providers Name Role Phone Ge Lawelr MD Primary Care Provider Encounter Details Date Type Department Care Team Description 03/30/2012 Imaging [facility] [address] [place] [address] Social History Tobacco Use Types Packs/Day Years Used Date Smoking Tobacco: Never Alcohol Use Standard Drinks/Week Comments Yes 1.7 (1 standard drink = 0.6 oz pure alco hol) Sex Assigned at Date Recorded Not on file documented as of this encounter Plan of Treatment Not on filedocumented as of this encounter Visit Diagnoses Not on filedocumented in this encounter Care Teams Software Packager Relationship Specialty Start Date End Date Ge Lawler MD PCP - General Family Practice 12/17/11 10/11/15 [address] [place] [address] documented as of this encounter
--- OUTSIDE RECORDS SUMMARY | 2021-11-05 19:26 | XMS_ITS | Encounter Summary ---
:1975 Author Organization [facility] Address [address], [place] [address] Care Team Providers Name Role Phone Ge Lawler MD Primary Care Provider Encounter Details Date Type Department Care Team Description 06/24/2014 Lab Visit Specialty [facility] 393 1 Andrology Sterilization [address] [facility] [address] [place], [place] [address] Social History Tobacco Use Types Packs/Day Years Used Date Smoking Tobacco: Never Alcohol Use Standard Drinks/Week Comments Yes 1.7 (1 standard drink = 0.6 oz pure alco hol) Sex Assigned at Date Recorded Not on file documented as of this encounter Plan of Treatment Not on filedocumented as of this encounter Procedures Procedure Name Priority Date/Time Associated Diagnosis Comme nts POST VASECTOMY Routine 06/24/2014 9:00 AM Sterilization Result s for this CHECK CDT procedure are i n the results section. documented in this encounter Results POST VASECTOMY CHECK (06/24/2014 9:00 AM CDT) [facility] Method Time Signature Where Collected Off site HP CONVERSION - Semen Days of 3 days HP CONVERSION Abstinence Time Test 1,015 HP CONVERSION Performed Post Vasectomy no sperm HP CONVERSION Sperm Count Comment: No sperm present NOTE: ??A concentrating technique was no t performed; the presence of both motile and non-wallace le sperm may not be detected. Specimen Anatomical Collection Method Collection Time Receive d Time (Source) Location / / Volume Laterality 06/24/2014 9:00 AM 5 9:40 CDT AM CDT Narrative HP CONVERSION - 06/24/2014 10:56 AM CDT Performed at [facility], [address] [place] [address] Santo Paula MD LAB_1 Performing Organization Address City/State/ZIP Code Phon e Number HP CONVERSION documented in this encounter Visit Diagnoses Diagnosis Sterilization documented in this encounter Care Teams Test Clerk Relationship Specialty Start Date End Date Ge Lawler MD PCP - General Family Practice 12/17/11 10/11/15 [address] [place], [place] [id number] documented as of this encounter
--- OUTSIDE RECORDS SUMMARY | 2021-11-05 19:26 | XMS_ITS | Clinical Summary ---
:1975 Author Organization [facility] Address [address], [place] [address] Care Team Providers Name Role Phone [facility], Clinician Primary Care Provider Unavailable Source Comments You are receiving this document as you are listed as the primary care provider,follow-up provider, or the patient has been referred to you for consultation.This is in compliance with the Medicare and Medicaid EHR Incentive Program,which states Providers who transition their patient to another setting of careor provider of care or refers their patient to another provider of care shouldprovide summarycare record for each transition of care or referral. [facility] Allergies No known active allergies Medications No known medications Active Problems Problem Noted Date Abdominal pain 03/04/2012 Overview: recurrent ; Abdominal pain, unspecified site Resolved Problems Problem Noted Date Resolved Date Routine general medical examination at [facility] 009 09/30/2013 facility Overview: Multisystem Exam Impacted cerumen 08/13/2007 04/24/2011 Overview: Cerumen Impacted Immunizations Name Administration Dates Next Due Flu Vac Preserv Free (3+yrs) 01/11/2009 H1n1 Miv Sanofi 3+ Yr (Injected) 01/11/2009 TDAP (BOOSTRIX) 10/13/2013 Td 08/30/2002 Social History Tobacco Use Types Packs/Day Years [...] Assigned at Date Recorded Not on file Last Filed Vital Signs Vital Sign Reading Time Taken Comments Blood Pressure 130/63 05/19/2017 7:23 PM CDT Pulse 64 05/19/2017 7:23 PM CDT Temperature 35.4 ??C (95.8 ??F) 05/14/2021 3:43 PM CDT Respiratory Rate 24 05/19/2017 7:23 PM CDT Oxygen Saturation 100% 05/13/2017 4:10 PM CDT Inhaled Oxygen Concentration - - Weight 79.4 kg (175 lb) 05/14/2021 3:43 PM CDT Height 180.3 cm (5' 11) 05/14/2021 3:43 PM CDT Body Mass Index 24.41 05/14/2021 3:43 PM CDT Plan of Treatment Health Maintenance Due Date Last Done Comments Colon Cancer Screening Plan 1975 Due Hep C Screening (Preventive 1975 Services) HepB (1) 1975 COVID-19 Vaccine (#1) 1975 Adult Preventive Visit 02/25/1994 Cholesterol 10/30/2018 10/30/2013, 08/07/2010, 01/11/2009, Additional history exists Influenza (#1) 2021 10/31/2014, 01/11/2009 DTaP/Tdap/Td (2 - Tdap) 10/14/2023 10/13/2013, 08/30/2002 Zoster/Shingles (1 of 2) 02/25/2026 HIV Screening (Preventive Completed 01/05/2001 Services) HPV Vaccine Aged Out No longer eligib le based on patient 's age to complete this topic HepA Aged Out No longer eligib le based on patient 's age to complete this topic Hib Aged Out No longer eligib le based on patient 's age to complete this topic IPV (Polio) Aged Out No longer eligib le based on patient 's age to complete this topic MCV4 Aged Out No longer eligib le based on patient 's age to complete this topic Pneumococcal Aged Out No longer eligib le based on patient 's age to complete this topic Insurance Payer Benefit Plan / Subscriber ID Effective Phone Address T ype Group Dates PREFERREDONE PREFERREDONE [id number] 2020-Pres [phone] OPEN ACCESS ent [id number] [place] [phone] Guarantor Name Account Type Relation to Date of Phone Billing Address Patient Jose Luis Shipley Personal/Famil Self 1975 [address] (Home) [place] [phone] (Work) Jose Luis Shipley Personal/Famil Self [address] (Home) [place], [place] [phone] (Work) Jose Luis Shipley Personal/Famil Self 1975 [address] (Home) [place] [address] Care Teams Translator And Interpreter Relationship Specialty Start Date End Date Nino Krause PCP - General 09/22/[address] [place] [address]
--- OUTSIDE RECORDS SUMMARY | 2021-11-05 19:26 | XMS_ITS | Encounter Summary ---
:1975 Author Organization [facility] Address [address] [place] [address] Care Team Providers Name Role Phone Ge Lawler MD Primary Care Provider Reason for Visit Reason Comments Ear Pain ear pain since last night Encounter Details Date Type Department Care Team Description 09/08/2013 Office Visit [facility] Otalgia, right (Primary [address]) [place], [place] [address] Social History Tobacco Use Types Packs/Day Years Used Date Smoking Tobacco: Never Alcohol Use Standard Drinks/Week Comments Yes 1.7 (1 standard drink = 0.6 oz pure alco hol) Sex Assigned at Date Recorded Not on file documented as of this encounter Last Filed Vital Signs Vital Sign Reading Time Taken Comments Blood Pressure 109/68 09/08/2013 6:06 PM CDT Pulse 60 09/08/2013 6:06 PM CDT Temperature - - Respiratory Rate 16 09/08/2013 6:06 PM CDT Oxygen Saturation - - Inhaled Oxygen Concentration - - Weight 79.4 kg (175 lb) 09/08/2013 6:06 PM CDT Height 180.3 cm (5' 11) 09/08/2013 6:06 PM CDT Body Mass Index 24.41 09/08/2013 6:06 PM CDT documented in this encounter Patient Instructions Patient Isha Barajas PA-C - 09/08/2013 6:47 PM CDT Images from the original note were not included. Stressed that he has no evidence of media or external otitis, no wax, no drainage. No evidence of bronchitis or pneumonia, sinusitis. His sxs might be related to Eustachian tube d/o following cold sxs (URI) or seasonal allergy. In themeantime, symptomatic treatment with Prednisone, Ibuprofen 600mg three times per day for 3 days, Sudafed 30 mg one per day for 3 days, Claritin 10 mg once a day as needed, avoiding exposure to smoking area. It is possible to forcibly blow air through the Eustachian tube into the middle ear by pinchingthe nose closed and popping the ear., chewing gum Push fluids and rest. Maintain adequate humidity at home, vaporizer. Eat a nutritious diet. Elevate the head of the bed. Avoid submerging ear in water (e.g. no swimming, careful bathing as using cotton ball to place into the ear canals). Follow up with your primary care provider if your symptoms worsen or do not improve in next 5 to 7 days. Avoid exposure to smoke. Immunization up to date Earache: After Your Visit Your Care Instructions Even though infection is a common cause of ear pain, not all ear pain means an infection. If you have ear pain and don't have an infection, it could be because of a jaw problem, such as temporomandibular joint (TMJ) pain. Or it could be because of a neck problem. When ear discomfort or pain is mild or comes and goes without other symptoms, home treatment may be all you need. Follow-up care is a phillips part of your treatment and safety. Be sure to make and go to all appointments, and call your doctor if you are having problems. It's also a good idea to know your test results and keep a list of the medicines you take. How can you care for yourself at home? ?? Apply heat on the ear to ease pain. To apply heat, put a warm water bottle, a heating pad set on low, or a warm cloth on your ear. Do not go to sleep with a heating pad on your skin. ?? Take an pshy-pkr-wggqttr pain medicine, such as acetaminophen (Tylenol), ibuprofen (Advil, Motrin), or naproxen (Aleve). Be safe with medicines. Read and follow all instructions on the label. ?? Do not take two or more pain medicines at the same time unless the doctor told you to. Many pain medicines have acetaminophen, which is Tylenol. Too much acetaminophen (Tylenol) can be harmful. ?? Never insert anything, such as a cotton swab or a vane pin, into the ear. When should you call for help? Call your doctor now or seek immediate medical care if: ?? You have a fever. ?? You feel a lump in your neck or jaw. ?? The area around the ear starts to swell. ?? There is pus or blood draining from the ear. ?? There is new or different drainage from the ear. Watch closely for changes in your health, and be sure to contact your doctor if: ?? Your pain gets worse. ?? You do not get better as expected. Where can you learn more? Go to [employer] and enter C927 in the search box. Last Revised: March 20, 2012 ?? [id number] [employer] Eustachian Tube Problems: After Your Visit Your Care Instructions The eustachian (say nrr-RIDT-dtek-un) tubes run between the inside of the ears and the throat. They keep air pressure stable in the ears. If your eustachian tubes become blocked, the air pressure in your ears changes. The fluids from a cold can clog eustachian tubes, causing pain in the ears. A quick change in air pressure can cause eustachian tubes to close up. This might happen when an airplane changes altitude or when a cocktail waitress goes up or down underwater. Eustachian tube problems often clear up on their own or after antibiotic treatment. If your tubes continue to be blocked, you may need surgery. Follow-up care is a phillips part of your treatment and safety. Be sure to make and go to all appointments, and call your doctor if you are having problems. It???s also a good idea to know your test resultsand keep a list of the medicines you take. How can you care for yourself at home? ?? To ease ear pain, apply a warm washcloth or a heating pad set on low. There may be some drainage from the ear when the heat melts earwax. Put a cloth between the heat source and your skin. ?? If your doctor prescribed antibiotics, take them as directed. Do not stop taking them just because you feel better. You need to take the full course of antibiotics. ?? Your doctor may recommend olph-iht-wxiahub medicine. Oral or nasal decongestants may relieve ear pain. Avoid decongestants that are combined with antihistamines, which tend to cause more blockage. But if allergies seem to be the problem, your doctor may recommend a combination. Before you use coughand cold medicines, check the label. These medicines may not be safe for young children or for people with certain health problems. When should you call for help? Call your doctor now or seek immediate medical care if: ?? You develop sudden, complete hearing loss. ?? You have severe pain or feel dizzy. ?? You have new or increasing pus or blood draining from your ear. ?? You have redness, swelling, or pain around or behind the ear. Watch closely for changes in your health, and be sure to contact your doctor if: ?? You do not get better after 2 weeks. ?? You have any new symptoms, such as itching or a feeling of fullness in the ear. Where can you learn more? Go to [employer] and enter Y822 in the search box. Last Revised: June 26, 2012 ?? [id number] [employer]. documented in this encounter Progress Notes Isha Marquis PA-C - 09/08/2013 8:48 PM CDT SUBJECTIVE Jose Luis Shipley is a 38 yr old male who is presenting at for R ear pain evaluation. His symptoms develop 2 days prior to presentation. He has sudden onset of R ear discomfort, intermittent, following few days of cold symptoms. He has mild ear pain, dull ache, pressure, fullness, but no decreased hearing. Last night, ear pain worsen, throbbing pain, interrupted his sleep, constant. It is not aggravated pain by touching or chewing, no radiation, no sleep disturbed. Denied ear trauma, drainage, imbalance, dizziness, tinnitus. Swimming in [employer] on the weekend (5 days ago). Previous OM none. H/o ear tubes none. Sore throat none. Coryza and congestion nose mild from seasonal allergy Cough none. Denies wheezing, SOB, N/V/D/C. No asthma and no smoker Denies eye pain, redness, fever, chills, sweats. DARDEN sometime last night from ear pain, mild dull ache at R temporal area, better and none at the visit. Denies tingling, numbness, weakness. Sick contact none Previous strep none No outpatient prescriptions prior to visit. No facility-administered medications prior to visit. No Known Allergies OBJECTIVE Blood pressure 109/68, pulse 60, resp. rate 16, height 5' 11 (1.803 m), weight 175 lb (79.379 kg). General appearance: healthy, alert, in no acute distress, WD, WN Ears: R TM - WNL: pearly, faith with good light reflex, L TM - pearly, faith with good light reflex. Bilateral canals patent, no wax. Nose: normal and clear rhinorrhea Oropharynx: normal, mild erythema, tonsillar hypertrophy+1, and no exudates present, PND noted Neck: normal, supple and no adenopathy Lungs: normal and clear to auscultation without any rales or rhonchi bilaterally Heart: normal and regular rate and rhythm without murmur, gallop or rub ASSESSMENT ICD-9-CM 1. Otalgia, right 388.70 predniSONE (AKA DELTASONE) 20 MG tablet PLAN Stressed that he has no evidence of media or external otitis, no wax, no drainage. No evidence of bronchitis or pneumonia, sinusitis. His sxs might be related to Eustachian tube d/o following cold sxs (URI) or seasonal allergy. In themeantime, symptomatic treatment with Prednisone, Ibuprofen 600mg three times per day for 3 days, Sudafed 30 mg one per day for 3 days, Claritin 10 mg once a day as needed, avoiding exposure to smoking area. It is possible to forcibly blow air through the Eustachian tube into the middle ear by pinchingthe nose closed and popping the ear., chewing gum Push fluids and rest. Maintain adequate humidity at home, vaporizer. Eat a nutritious diet. Elevate the head of the bed. Avoid submerging ear in water (e.g. no swimming, careful bathing as using cotton ball to place into the ear canals). Follow up with your primary care provider if your symptoms worsen or do not improve in next 5 to 7 days. Avoid exposure to smoke. Immunization up to date PI given and review with patient documented in this encounter Plan of Treatment Not on filedocumented as of this encounter Visit Diagnoses Diagnosis Otalgia, right - Primary documented in this encounter Care Teams Automotive Service Management Teacher Relationship Specialty Start Date End Date Ge Lawler MD PCP - General Family Practice 12/17/11 10/11/15 [address] [place] [address] documented as of this encounter
--- OUTSIDE RECORDS SUMMARY | 2021-11-05 19:26 | XMS_ITS | Encounter Summary ---
:1975 Author Organization [email or web address] Address [address] [place] [address] Care Team Providers Name Role Phone Chencho Arauz PA-C Primary Care Provider Unavailable Reason for Visit Reason Comments Physical Therapy Encounter Details Date Type Department Care Team Description 05/01/2016 Office Visit [facility] Miko Pascal, PT Acute pain of right knee (Primary Dx); Center, Physical [address] [facility] Weakness of right lower extremity Therapy [place], [place] [address] [address] [address] [place], [place] [address] [phone] Social History Tobacco Use Types Packs/Day Years [...] encounter Progress Notes Miko Pascal, PT - 05/01/2016 4:19 PM CDT [facility] Daily Note Visit Number: 3 Preferred One <13 years Initial Certification Period: [...] rest, 5/10 at worst Patient reports he is feeling quite a bit better again this week. He felt the tape was definietly helpful and was even able to jog a little without much discomfort today as well. HEP is going well. OBJECTIVE: Today???s Findings: ROM (pkchcskvx-hst-opid): WNL without symptoms Joint mobility: Patellar: WNL without pain Flexibility: hamstrings 90/90 test: -25 degrees B Strength: per below Palpation: continued tenderness to palpation at inferior patellar pole, medial facet, and patellar tendon Functional Tests: Double leg squat: mild anterior loading and valgus Single leg squat: mild valgus, mild anterior loading TREATMENT TODAY: Neuromuscular re-education (CPT 28035) x 25 minutes: Patellar taping - reduced symptoms with step down task Access Code: [email or web address] Exercises Single leg bridges x fatigue/20 Prone Planks - alternating leg lifts as able Double leg press x 20 - 145 lbs Single leg press x 20 - 70 lbs Step up at 8'' step x 20 - still a little painful without cues Abduction side step with band x 20 Patient correctly performed all exercises following mild verbal, tactile, and visual cues regarding isolation of intended musculature and to keep exercises pain free, and displayed good understanding of exercise parameters and progression. Neuro Re Education: 10 minutes Performed Walker taping technique in form of medial patellar glide to improve/alter general patellar tracking, quad activation, and patellar fat pad irritation. Patient reporting 50% improved pain with step down from 4'' step following taping. Tape Left on with instructions of when/why to discontinue tape usage. Timed Code Treatment Minutes: 30 Total Treatment Minutes: 30 ASSESSMENT: Patient continues to show improvements in all aspects of his care. He responded great to the taping again today and was much better in both control and overall strength/endurance with exercises. Doing great. PLAN: Progress HEP/therapeutic exercise as appropriate and able. Manual therapy and modalities for pain control as needed. - review taping - consider light return to jog - retros, lunges, SL glute when able EXPECTED FUNCTIONAL OUTCOMES/GOALS: HEP/Independent Management: Demonstrate independence [...] least 85 in 12 weeks. Therapist: Miko Pascal, XIMENA 4:19 PM 05/01/2016 documented in this encounter Plan of Treatment Not on filedocumented as of this encounter Visit Diagnoses Diagnosis Acute pain of right knee - Primary Weakness of right lower extremity documented in this encounter Care Teams Cable Ferry Operator Relationship Specialty Start Date End Date Chencho Arauz PA-C PCP - General 10/12/1511/27 documented as of this encounter
--- OUTSIDE RECORDS SUMMARY | 2021-11-05 19:26 | XMS_ITS | Encounter Summary ---
:1975 Author Organization [facility] Address [address], [place] [address] Care Team Providers Name Role Phone Ge Lawler MD Primary Care Provider Encounter Details Date Type Department Care Team Description 12/23/2011 Hospital Encounter [facility] Abdominal pain, Endoscopy generalized [address] [place], [place] [address] Social History Tobacco Use Types Packs/Day Years Used Date Smoking Tobacco: Never Alcohol Use Standard Drinks/Week Comments Yes 1.7 (1 standard drink = 0.6 oz pure alco hol) Sex Assigned at Date Recorded Not on file documented as of this encounter Last Filed Vital Signs Vital Sign Reading Time Taken Comments Blood Pressure 109/79 12/23/2011 5:00 PM TRAUMA COORDINATOR Pulse 67 12/23/2011 5:00 PM TRAUMA COORDINATOR Temperature - - Respiratory Rate 16 12/23/2011 5:00 PM TRAUMA COORDINATOR Oxygen Saturation 99% 12/23/2011 5:00 PM TRAUMA COORDINATOR Inhaled Oxygen Concentration - - Weight 77.1 kg (170 lb) 12/23/2011 3:46 PM TRAUMA COORDINATOR Height 180.3 cm (5' 11) 12/23/2011 3:46 PM TRAUMA COORDINATOR Body Mass Index 23.71 12/23/2011 3:46 PM TRAUMA COORDINATOR documented in this encounter Medications at Time of Discharge Medication Sig Dispensed Refills Start Date End Date hyoscyamine (AKA Take 1 tablet by 30 tablet 0 11/19/2011 LEVSIN/SL) 0.125 MG mouth every 4 hours sublingual tablet as needed for Cramping. documented as of this encounter Procedure Notes Micky Gomez - 12/23/2011 3:25 PM CST Procedures signed by Micky Gomez MD at 12/23/111524 Author: Micky Gomez MD Service: (none) Author Type: Physician Filed: 12/23/11 1631 Note Time: 12/23/111524 Status: Signed Electroplater: Micky Gomez MD (Physician) Patient Name: Jose Luis Shipley Gender: Patti Procedure Date: 12/23/2011 03:25:00 PM Date of : 1975 Age: 36 Admit Type: Outpatient Note Status: Finalized Attending MD: Micky Gomez MD Procedure: Colonoscopy Indications: Abdominal pain, FH of Colon Cancer -distant relative Providers: Micky Gomez MD, Pita Arvizu RN Referring MD: Dee Dee Soto NP Medicines: Fentanyl 200 micrograms IV, Midazolam 4 mg IV Complications: No immediate complications. Procedure: - Prior to the procedure, a History and Physical was performed, and patient medications and allergies were reviewed. The risks and benefits of the procedure and the sedation options and risks were discussed with the patient. All questions were answered and informed consent was obtained. Patient identification and proposed procedure were verified by the physician in the procedure room at 16:06 PM. Mental Status Examination: normal. Respiratory Examination: clear to auscultation. CV Examination: normal. After reviewing the risks and benefits, the patient was deemed in satisfactory condition to undergo the procedure. The anesthesia plan was to use moderate sedation / analgesia (conscious sedation). Immediately prior to administration of medications, the patient was re-assessed for adequacy to receive sedatives. The heart rate, respiratory rate, oxygen saturations, blood pressure, adequacy of pulmonary ventilation, and response to care were monitored throughout the procedure. The physical status of the patient was re-assessed after the procedure. After I obtained informed consent, the scope was passed under direct vision. Throughout the procedure, the patient's blood pressure, pulse, and oxygen saturations were monitored continuously. The [id number] colonoscope was introduced through the anus and advanced to the terminal ileum. The patient tolerated the procedure well. The quality of the bowel preparation was excellent. Redundant. Findings: The terminal ileum appeared normal with brief exam.The entire examined colon appeared normal. Impression: - The examined portion of the ileum was normal. - The colon is normal. Maternal grandfather with CRC age 52. No endoscopic explanation for symptoms. Recommendation: - Repeat colonoscopy age 50 for screening purposes. CPT4 Code(s): 42823, Colonoscopy, flexible, proximal to splenic flexure; diagnostic, with or without collection of specimen(s) by brushing or washing, with or without colon decompression (separate procedure) ICD9 Code(s): 789.00, Abdominal pain, unspecified site V16.0, Family history of malignant neoplasm of gastrointestinal tract CPT Copyright 2011 [employer]. All Rights Reserved. The codes documented in this report are preliminary and upon slurry blender review may be revised to meet current compliance requirements. Micky Gomez MD Signed Date: 12/23/2011 04:31:25 PM Number of Addenda: 0 This document has been electronically signed. Note initiated on 12/23/2011 03:26:10 PM MA COORDINATOR documented in this encounter Miscellaneous Notes Medication History - Rick Leiva MD - 12/23/2011 11:59 PM CST INPATIENT MEDS Encounter Date: 12/23/11 0.9% sodium chloride latex free syringe 10 mL Start Date:12/23/11, End Date:12/24/11, Frequency:PRN Taken Dose Action User Route Site Recorded Comment Reason 12/23/11 1627 10 mL Given Pita Arvizu RN Intravenous - 12/23/117 - - Fentanyl Citrate (PF) (SUBLIMAZE) injection 25-100 mcg Start Date:12/23/11, End Date:12/24/11, Frequency:PRN Taken Dose Action User Route Site Recorded Comment Reason 12/23/11 1627 200 mcg Given Pita Arvizu RN Intravenous - 12/23/11 1627 - - midazolam (VERSED) injection 0.5-2 mg Start Date:12/23/11, End Date:12/24/11, Frequency:PRN Taken Dose Action User Route Site Recorded Comment Reason 12/23/11 1627 4 mg Given Pita Arvizu RN Intravenous - 12/23/117 - - ondansetron (ZOFRAN) injection 4 mg Start Date:12/23/11, End Date:12/24/11, Frequency:ONCE PRN *No Administrations Recorded Fentanyl Citrate (PF) (SUBLIMAZE) 100 mcg/2 mL (50 mcg/mL) injection Start Date:12/23/11, End Date:-, Frequency:- *No Administrations Recorded midazolam (VERSED) 1 mg/mL injection Start Date:12/23/11, End Date:-, Frequency:- *No Administrations Recorded 0.9% sodium chloride latex free syringe Start Date:12/23/11, End Date:-, Frequency:- *No Administrations Recorded Fentanyl Citrate (PF) (SUBLIMAZE) 100 mcg/2 mL (50 mcg/mL) injection Start Date:12/23/11, End Date:-, Frequency:- *No Administrations Recorded midazolam (VERSED) 1 mg/mL injection Start Date:12/23/11, End Date:-, Frequency:- *No Administrations Recorded 0.9% sodium chloride latex free syringe Start Date:12/23/11, End Date:-, Frequency:- *No Administrations Recorded MA COORDINATOR documented in this encounter Plan of Treatment Not on filedocumented as of this encounter Visit Diagnoses Diagnosis Abdominal pain, generalized documented in this encounter Care Teams Safety Sitter Relationship Specialty Start Date End Date Ge Lawler MD PCP - General Family Practice 12/17/11 10/11/15 [address] [place] [address] documented as of this encounter
--- OUTSIDE RECORDS SUMMARY | 2021-11-05 19:26 | XMS_ITS | Encounter Summary ---
:1975 Author Organization [facility] Address [address], [place] [address] Care Team Providers Name Role Phone Ge Lawler MD Primary Care Provider Encounter Details Date Type Department Care Team Description 10/30/2013 Lab Visit [place] [address] Screening for ischemic heart disease; Laboratory Screening for diabetes [facility] [address] [place] [address] Social History Tobacco Use Types Packs/Day Years Used Date Smoking Tobacco: Never Alcohol Use Standard Drinks/Week Comments Yes 1.7 (1 standard drink = 0.6 oz pure alco hol) Sex Assigned at Date Recorded Not on file documented as of this encounter Plan of Treatment Not on filedocumented as of this encounter Procedures Procedure Name Priority Date/Time Associated Diagnosis Comme nts GLUCOSE Routine 10/30/2013 8:16 AM Screening for Results for this CDT diabetes mellitus procedure are in the results section. LIPID PANEL AND Routine 10/30/2013 8:16 AM Screening for Resul ts for this DIRECT LDL(IF CDT ischemic heart procedure ar e in NEEDED) disease the results section. documented in this encounter Results GLUCOSE (10/30/2013 8:16 AM CDT) P athologist Signature Lab Glucose 90 60 - 100 [facility] CONVERSION mg/dL Specimen Anatomical Collection Method Collection Time Receive d Time (Source) Location / / Volume Laterality 10/30/2013 8:16 AM 4 8:16 CDT AM CDT Narrative [facility] CONVERSION - 10/30/2013 9:24 AM CDT Performed at [facility], [facility] [place] [address] Chencho Arauz PA-C LAB_1 Performing Organization Address [facility] Phon e Number [facility] CONVERSION Lipid Panel and Direct LDL(If Needed) (10/30/2013 8:16 AM CDT) [facility] gist Method Time Signature Cholesterol 182 0 - 200 [facility] CON[facility] mg/dL Triglycerides 61 0 - 149 [facility] CON[facility] mg/dL HDL Cholesterol 48 >39 mg/dL [facility] CON[facility] Cholesterol/HDL 3.8 [facility] CON[facility] Ratio Screen LDL Calculated 122 19 - 130 [facility] CON[facility] mg/dL Length Of Fast 12.0 [facility] CON[facility] Specimen Anatomical Collection Method Collection Time Receive d Time (Source) Location / / Volume Laterality 10/30/2013 8:16 AM 4 8:16 CDT AM CDT Narrative [facility] CONVERSION - 10/30/2013 9:24 AM CDT Performed at [facility], [address] [place] [id number] Chencho Arauz PA-C LAB_1 Performing Organization Address [facility] Phon e Number [facility] CONVERSION documented in this encounter Visit Diagnoses Diagnosis Screening for ischemic heart disease Screening for diabetes mellitus documented in this encounter Care Teams Inventory Manager Relationship Specialty Start Date End Date Ge Lawler MD PCP - General Family Practice 12/17/11 10/11/15 [address] [place] [address] documented as of this encounter
--- OUTSIDE RECORDS SUMMARY | 2021-11-05 19:26 | XMS_ITS | Encounter Summary ---
:1975 Author Organization [facility] Address [address], [place] [address] Care Team Providers Name Role Phone Ge Lawler MD Primary Care Provider Encounter Details Date Type Department Care Team Description 11/05/2013 [facility]31 Radiology Pain in joint, hand X-ray [address] [place] [address] Social History Tobacco Use Types Packs/Day Years Used Date Smoking Tobacco: Never Alcohol Use Standard Drinks/Week Comments Yes 1.7 (1 standard drink = 0.6 oz pure alco hol) Sex Assigned at Date Recorded Not on file documented as of this encounter Plan of Treatment Not on filedocumented as of this encounter Procedures Procedure Name Priority Date/Time Associated Diagnosis Comme nts XR HAND LT 3+ VIEWS Routine 11/05/2013 2:38 PM Pain in joint, hand Results for this CDT procedure are i n the results section. documented in this encounter Results XR Hand Lt 3+ Views (11/05/2013 2:38 PM CDT) Anatomical Region Laterality Modality Upper Extremity, Hand Other Specimen (Source) Anatomical Location Collection Method / Collectio n Time Received Time / Laterality Volume Narrative 11/05/2013 2:44 PM CDT COMPARISON: ??None. FINDINGS: ??No significant bone or joint abnormality is noted. Procedure Note Ian De La Rosa MD - 07/29/2015 COMPARISON: None. FINDINGS: No significant bone or joint a bnormality is noted. Nick Jones MD RAD GD documented in this encounter Visit Diagnoses Diagnosis Pain in joint, hand documented in this encounter Care Teams Kettle Chipper Relationship Specialty Start Date End Date Ge Lawler MD PCP - General Family Practice 12/17/11 10/11/15 [address] [place] [address] documented as of this encounter
--- OUTSIDE RECORDS SUMMARY | 2021-11-05 19:26 | XMS_ITS | Encounter Summary ---
:1975 Author Organization [facility] Address [address] [place] [address] Care Team Providers Name Role Phone Ge Lawler MD Primary Care Provider Reason for Visit Reason Comments Recheck Encounter Details Date Type Department Care Team Description 10/12/2013 Office Visit [facility] [address] Agustin Kenney OE (tobias tis externa) (Primary Dx); Ear, Nose, and Throa t MISSY Conductive hearing loss in l eft ear [address] [facility] [place], [place] [id number] Social History Tobacco Use Types Packs/Day Years Used Date Smoking Tobacco: Never Alcohol Use Standard Drinks/Week Comments Yes 1.7 (1 standard drink = 0.6 oz pure alco hol) Sex Assigned at Date Recorded Not on file documented as of this encounter Progress Notes Agustin Kenney PA-C - 10/12/2013 5:06 PM CDT Jose Luis Shipley is a 38 y.o. male who is here for follow-up evaluation of otitis externa affecting the left ear. He was last seen in my clinic on 10/05/13, where he was started on Ciprodex eardrops, and has been using them for about one week now. He states his pain has now resolved, and he denies any drainage as well. His only symptom today is a slight plugging sensation in the left ear only. He states that the plugging sensation in the right ear has now resolved completely and his hearing feels back to baseline on that side. He denies any general neurologic complaints. No other concerns. Patient's medications, allergies, past [...] appearance with normalfacial movement and occular motility. Ears: Overall normal external appearance, no auricular swelling or deformity. No evidence of facial swelling, erythema or cellulitis. Right ear canal and TM normal in appearance without middle ear fluid, retraction, bulging, injection, perforation, purulent debris or drainage in the canal. The left ear is nontender to palpation of the pinna, tragus, mastoid. No evidence of any purulent drainage, debris, fungal hyphae or spores in the ear canal. Ear canal is minimally erythematous without edema. The eardrum is slightly retracted but without middle ear fluid, bulging, perforation. Overall, the infection appears to have healed. I was able to move the left TM slightly with the pneumatic otoscope underthe otoscopic microscope. Audiogram: Right side shows hearing within normal limits and normal tympanogram, while the left ear shows conductive hearing loss in the low frequencies otherwise hearing within normal limits. Left tympanogram isflat with normal volume. Speech recognition was 96% in right ear and 100% in left at a hearing levelof 50 in right and 60 in left. Acoustic reflexes not tested, see audiology note for details Assessment: Otitis Externa, bilateral. Both sides appear to have resolved Conductive hearing loss left side, likely secondary to irritation from recent otitis externa, possible eustachian tube dysfunction. Plan: Recommend dry ear precautions, Ciprodex ear drops as prescribed x3 more days. Return for follow-up as needed if hearing does not seem to improve in one month or sooner if symptoms worsen or change. If hearing seems to be gradually improving back to baseline, recommend continuing longer, if not, call our office. Please note that the above medical documentation was created with voice recognition software and maycontain voice recognition and typographic errors. documented in this encounter Plan of Treatment Not on filedocumented as of this encounter Visit Diagnoses Diagnosis OE (otitis externa) - Primary Infective otitis externa, unspecified Conductive hearing loss in left ear Conductive hearing loss, unilateral documented in this encounter Care Teams Computer Systems Design Analyst Relationship Specialty Start Date End Date Ge Lawler MD PCP - General Family Practice 12/17/11 10/11/15 [address] [place] [address] documented as of this encounter
--- OUTSIDE RECORDS SUMMARY | 2021-11-05 19:26 | XMS_ITS | Encounter Summary ---
:1975 Author Organization [facility] Address [address] [place] [address] Care Team Providers Name Role Phone Chencho Arauz PA-C Primary Care Provider Unavailable Reason for Visit Reason Comments Physical Therapy Encounter Details Date Type Department Care Team Description 05/07/2016 Office Visit [facility] Miko Pascal, PT Acute pain of right knee (Primary Dx); Center, Physical [address] [facility] Weakness of right lower extremity Therapy [place], [place] [address] [address] [address] [place], [place] [address] [phone] Social History Tobacco Use Types Packs/Day Years [...] encounter Progress Notes Miko Pascal, PT - 05/07/2016 4:19 PM CDT [facility] [place] Physical Therapy Daily Note Visit Number: 4 Preferred One <13 years Initial Certification Period: [...] at rest, 3/10 at worst Patient reports feeling about 50% better overall now, and can do a number of things with less discomfort overall. He has felt good progressions in his HEP and just got the tape in the mail so he is excited to start practicing this at home. OBJECTIVE: Today???s Findings: ROM (mibyqlxfq-snw-gbtr): WNL without symptoms Joint mobility: Patellar: WNL without pain Flexibility: hamstrings 90/90 test: n/t Strength: per below Palpation: continued tenderness to palpation at inferior patellar pole, medial facet, and patellar tendon - though improved Functional Tests: Double leg squat: looking great Single leg squat: looked great on L, mild anterior loading and valgus still on L TREATMENT TODAY: Neuromuscular re-education (CPT 67913) x 25 minutes: Patellar taping - reduced symptoms with step down task Access Code: [email or web address] Exercises Single leg bridges x fatigue/20 Prone Planks - alternating leg lifts as able Double leg press x 20 - 145 lbs Single leg press x 20 - 70 lbs Step up at 8'' step x 20 - still a little painful without cues - cued to progress to lateral step downs as long as pain free Abduction side step with band x 20 - progressed to eccentric SL glute Side planks Patient correctly performed all exercises following mild [...] irritation. Patient reporting 50% improved pain with SL plank following taping. Tape Left on with instructions of when/why to discontinue tape usage. Timed Code Treatment Minutes: 35 Total Treatment Minutes: 35 ASSESSMENT: Patient continues to show improvements in [...] return to jog - retros, lunges, SL RDLs? EXPECTED FUNCTIONAL OUTCOMES/GOALS: HEP/Independent Management: Demonstrate independence [...] extremity documented in this encounter Care Teams Rubber Boots And Shoes Repairer Relationship Specialty Start Date End Date Chencho Arauz PA-C PCP - General 10/12/1511/27 documented as of this encounter
--- OUTSIDE RECORDS SUMMARY | 2021-11-05 19:26 | XMS_ITS | Encounter Summary ---
:1975 Author Organization [facility] Address [address] [place] [address] Care Team Providers Name Role Phone Chencho Arauz PA-C Primary Care Provider Unavailable Reason for Visit Reason Comments Physical Therapy Encounter Details Date Type Department Care Team Description 05/29/2016 Office Visit [facility] Miko Pascal, PT Acute pain of right knee (Primary Dx); Center, Physical [address] [facility] Weakness of right lower extremity Therapy [place], [place] [address] [address] [address] [place], [place] [address] [phone] Social History Tobacco Use Types Packs/Day Years [...] encounter Progress Notes Miko Pascal, PT - 05/29/2016 4:45 PM CDT [facility] [place] Physical Therapy Daily Note Visit Number: 6 Preferred One <13 years Initial Certification Period: [...] at rest, 3/10 at worst Patient reports things have felt good all week except for one day when he thinks did either a few tomany of his exercises or just did the step one wrong. Overall, things feel good today though. OBJECTIVE: Today???s Findings: ROM (xbewsrdql-vui-dilg): WNL without symptoms Joint mobility: Patellar: WNL without pain Strength: per below Palpation: continued tenderness to palpation at inferior patellar pole, medial facet, and patellar tendon - though improved Functional Tests: Double leg squat: looking great Single leg squat: looked great on L, mild anterior loading and valgus still on L - still anterior loads w/valgus when we attempt to hop though TREATMENT TODAY: Therapeutic Exercise x 25 minutes: Access Code: [email or web address] Exercises Single leg bridges x fatigue/20 - [...] x 20 lbs x 20 All BILATERAL Double leg distance hops Double leg vertical hops Single leg hop and holds Jogging review - cues on increasing ethan from 160 to 170 Patient correctly performed all exercises following mild verbal, tactile, and visual cues regarding isolation of intended musculature and to keep exercises pain free, and displayed good understanding of exercise parameters and progression. Timed Code Treatment Minutes: 25 Total Treatment Minutes: 30 ASSESSMENT: Patient overall continues to improve. He tolerated advancements to walk/jog and hop routine without pain today, though cues on performance was certainly needed. He remains active with his HEP and is hopefully nearing discharge status in 2-3 weeks. PLAN: Progress HEP/therapeutic exercise as appropriate and able. Manual therapy and modalities for pain control as needed. - review taping - consider light return to jog EXPECTED FUNCTIONAL OUTCOMES/GOALS: HEP/Independent Management: Demonstrate independence with HEP and self- management following each treatment session MET Ambulation: Ascend/descend stairs independently with reciprocal pattern with minimal to no symptoms and improved lower extremity alignment in 6 weeks. EMT Sports/Leisure: Return to prior level of leisure [...] extremity documented in this encounter Care Teams Artificial Breeding Distributor Relationship Specialty Start Date End Date Chencho Arauz PA-C PCP - General 10/12/1511/27 documented as of this encounter
--- OUTSIDE RECORDS SUMMARY | 2021-11-05 19:26 | XMS_ITS | Encounter Summary ---
:1975 Author Organization [facility] Address [address] [place] [address] Care Team Providers Name Role Phone Ge Lawler MD Primary Care Provider Reason for Visit Reason Comments INJURY, SHOULDER Encounter Details Date Type Department Care Team Description 04/15/2013 Office Visit [facility], Pain i n joint, Urgent Care shoulder region [address] [facility] (Primary Dx) [place], [place] [address] [address] [place], [place] [phone] (Wo rk) Social History Tobacco Use Types Packs/Day Years Used Date Smoking Tobacco: Never Alcohol Use Standard Drinks/Week Comments Yes 1.7 (1 standard drink = 0.6 oz pure alco hol) Sex Assigned at Date Recorded Not on file documented as of this encounter Last Filed Vital Signs Vital Sign Reading Time Taken Comments Blood Pressure - - Pulse - - Temperature 36.6 ??C (97.9 ??F) 04/15/2013 3:42 PM MANAGER MARKETING Respiratory Rate - - Oxygen Saturation - - Inhaled Oxygen Concentration - - Weight 79.4 kg (175 lb) 04/15/2013 3:42 PM MANAGER MARKETING Height 180.3 cm (5' 11) 04/15/2013 3:42 PM MANAGER MARKETING Body Mass Index 24.41 04/15/2013 3:42 PM MANAGER MARKETING documented in this encounter Patient Instructions Patient InstructionsLogJanny pandey - 04/15/2013 4:[address] Yung Larsen MD Sports & Orthopaedic Medicine Acute [facility] Patternmaker Apprentice Metal: [employer] Please fax all paperwork correspondence to [phone] Acute Injury Clinic Nurse Line: [phone] Please contact Acute Injury Clinic Nurse line for all requests and questions. Please contact your Pharmacy for all medication refill requests documented in this encounter Progress Notes Yung Larsen MD - 04/15/2013 4:25 PM CST Progress Notes signed by Yung Larsen MD at 04/16/13824 Author: Yung Larsen MD Service: (none) Author Type: Physician Filed: 04/16/13824 Note Time: 04/16/13707 Status: Signed Wreath And Garland Maker Hand: Yung Larsen MD (Physician) NAME: JOSE LUIS SHIPLEY MR#: [id number] CSN: [id number] AUTHENTICATING CLINICIAN: Yung Larsen MD CONFIRM #: [id number] LOC: 711 CLINIC PROGRESS NOTE DATE OF VISIT: 04/15/2013 : 1975 SUBJECTIVE: A 38-year-old gentleman presents for evaluation of left shoulder pain following an injury suffered last night. He fell on his shoulder landing on the AC and now he complains of soreness and pain with movement. He denies numbness and tingling. He does have some difficulty grasping things secondary to pain. He has not had problems on this side before. He has a right AC separation, which ultimately required surgery. He still has some movement with this. He has no chronic medical issues. 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 OBJECTIVE: In general, he is alert, oriented x3, not acutely in distress. Temperature is 97.8. Mild swelling inthe left AC and actually a more prominent right AC. He has tenderness to palpation over the AC joint. He has full range of motion and has pain on end range at the AC joint. He has pain with crossarm adduction. He has full cuff strength. He has negative impingement signs. Negative apprehension and relocation. The contralateral side again this is more prominent than the affected side. IMAGING: X-rays independently reviewed. Shoulder films are ordered and independently interpreted. INDICATION: Left shoulder pain. RADIOGRAPHIC ASSESSMENT: Perhaps slight widening of the AC. ASSESSMENT/PLAN: AC separation, mildly. Gave him a sling. Pain medication declined. Suggest frequent icing. Followup on an as-needed basis. MRA:ASHLEY C: R:04/15/13 16:42 CONFIRM#:[id number] GER MARKETING documented in this encounter Plan of Treatment Not on filedocumented as of this encounter Visit Diagnoses Diagnosis Pain in joint, shoulder region - Primary documented in this encounter Care Teams Vice Chair Relationship Specialty Start Date End Date Ge Lawler MD PCP - General Family Practice 12/17/11 10/11/15 [address] [place] [address] documented as of this encounter
--- OUTSIDE RECORDS SUMMARY | 2021-11-05 19:26 | XMS_ITS | Encounter Summary ---
:1975 Author Organization [facility] Address [address] [place] [address] Care Team Providers Name Role Phone Ge Lawler MD Primary Care Provider Reason for Visit Reason Comments Elbow Pain left, worse over 2-3 days, o ngoing for 2-3 weeks, warm to touch, Encounter Details Date Type Department Care Team Description 12/17/2011 Office Visit [facility] [place] [facility] Olecranon bursitis [address] (Primary Dx) [place], [place] [address] Social History Tobacco Use Types Packs/Day Years Used Date Smoking Tobacco: Never Sex Assigned at Date Recorded Not on file documented as of this encounter Last Filed Vital Signs Vital Sign Reading Time Taken Comments Blood Pressure 122/71 12/17/2011 6:59 PM MACHINIST BRAKE Pulse 66 12/17/2011 6:59 PM MACHINIST BRAKE Temperature 36.6 ??C (97.8 ??F) 12/17/2011 6:59 PM MACHINIST BRAKE Respiratory Rate 12 12/17/2011 6:59 PM MACHINIST BRAKE Oxygen Saturation - - Inhaled Oxygen Concentration - - Weight 79.8 kg (176 lb) 12/17/2011 6:59 PM MACHINIST BRAKE Height 180.3 cm (5' 11) 12/17/2011 6:59 PM MACHINIST BRAKE Body Mass Index 24.55 12/17/2011 6:59 PM MACHINIST BRAKE documented in this encounter Progress Notes Lauren Devine, STRATEGY MANAGER, CUSTOMS COMPLIANCE MANAGER - 12/17/2011 7:15 PM CST SUBJECTIVE: 36 year old male presents with 4 day hx of swelling, heat and tenderness over his L elbow. Had been playing tennis 2x during the past 2 weeks, and is aware of no injury or definite strain. He is R hand dominant. Has not had a fever.He is not experiencing pain of the elbow joint, shoulder, or hand and arm overall. Has not had to limit his use of the arm or elbow as he can bend it freely. Has no PMH of gout, arthritis, or infection or injury of the elbow or arm. No hx surgery of his upper extremities. OBJECTIVE: BP 122/71 Pulse 66 Temp(Src) 97.8 ??F (36.6 ??C) (Oral) Resp 12 Ht 5' 11 (1.803 m) Wt 176lb (79.833 kg) BMI 24.55 kg/m2 L elbow: Full ROM without apparent limitation. Mild redness, warmth cystic swelling over the olecranon bursa. LUE: Full shoulder, elbow, wrist, and hand/finger ROM noted. Terminal phalanges + light touch sensation, CR brisk upon release. Radial and ulnar pulses +2/2. ASSESSMENT: Olecranon bursitis, Left. No current s/s infectious origin, or explanation such as gout/arthitis. PLAN: Teaching re: onset of symptoms and range of causes, usual diagnostic approach, treatment options should symptoms progress. Given Bursitis Patient Information, Beyond the Basics, downloaded from [employer] To Date [employer]. Coban support wrap loosely applied to elbow, will wear during waking hours as tolerated. Cautioned to sleep without support wrap, to avoid interference with circulation, and to DC it's use should numbness or tingling or color change in L upper extremity occur distal to the wrap. Sleep with elbow elevated on pillow. May use OTC IBUPROFEN 400-600 MG po Q 6 hours as needed only. Avoid if remains pain free and edema, redness, heat do not progress. F/U primary care provider within the next 1-2 weeks, or more urgently should pain or fever occur, orleft arm/elbow function be limited by swelling. Lauren Costa, JESSICA-F 12/17/2011 INIST BRAKE documented in this encounter Nursing Notes 12/17/2011 7:00 PM CST >> Bettyeshine Simms CMA [facility] Dec 17, 2011 7:03 PM Bettye Simms CMA 12/17/2011, 7:01 PM documented in this encounter Plan of Treatment Not on filedocumented as of this encounter Visit Diagnoses Diagnosis Olecranon bursitis - Primary documented in this encounter Care Teams Global Lead Relationship Specialty Start Date End Date Ge Lawler MD PCP - General Family Practice 12/17/11 10/11/15 [address] [place] [address] documented as of this encounter
[2021-11-05 19:27] LABS: Basophils Absolute Auto 0.02 K/uL (0.00-0.30); Basophils Percent Auto 0.2 % (0.0-3.0); Eosinophils Absolute Auto 0.04 K/uL (0.00-0.50); Eosinophils Percent Auto 0.5 % (0.0-7.0); Hematocrit 41.6 % (37.0-53.0); Hemoglobin* 14.6 gm/dL (13.5-17.5); Lymphocytes Percent Auto 7.7 % (20-44); Mean Corpuscular HGB Conc 35 gm/dL (32-36); Mean Corpuscular Hemoglobin 30 pg (26-34); Mean Corpuscular Volume 87 fL (80-100); Monocytes Percent Auto 6.4 % (0.0-11.0); Neutrophils Percent Auto 85.2 % (42.0-72.0); Platelet Count* 219 K/uL (140-440); RDW Coefficient of Variation % 11.3 % (11.5-15.5); White Blood Count* 8.39 K/uL (4.50-11.00)
--- OUTSIDE RECORDS SUMMARY | 2021-11-05 19:27 | XMS_ITS | Encounter Summary ---
:1975 Author Organization [facility] Address [address] [place] [address] Care Team Providers Name Role Phone Chencho Arauz PA-C Primary Care Provider Unavailable Encounter Details Date Type Department Care Team Description 11/10/2006 Office Visit [facility] Micky Pastrana MD [address] [facility] [address] [facility] [place], [place] [address] [address] [place] [address] [phone] (Wo rk) Social History Tobacco Use Types Packs/Day Years Used Date Smoking Tobacco: Never Assessed Sex Assigned at Date Recorded Not on file documented as of this encounter Progress Notes Micky Pastrana MD - 11/10/2006 12:01 AM CDT Progress Notes signed by Micky Pastrana MD at 11/14/06 1740 Author: Micky Pastrana MD Service: (none) Author Type: Physician Filed: 06/01/10 2200 Note Time: 11/10/06 0001 Status: Signed Rag Grader: Micky Pastrana MD (Physician) NAME: JOSE LUIS SHIPLEY MR#: [id number] ACCT: [id number] VISIT: [id number] DICTATING CLINICIAN: MICKY PASTRANA MD JOB: [id number] LOC: 371 CLINIC PROGRESS NOTE DATE OF VISIT: 11/10/2006 SUBJECTIVE: CHIEF COMPLAINT: Recheck for right shoulder tight rope technique for AC separation. Date of surgery 04/29/06. HISTORY OF PRESENT ILLNESS: Hernandez Shipley returns today for the aforementioned procedure. He has been doing quite well. Says he rates his pain at 1/10, a little soreness laterally along the deltoid, but no overall complaints. He is back to playing tennis. OBJECTIVE: Physical exam shows a slightly high riding clavicle on the affected on the side. Incision is clean, dry, and intact. Sensation on the upper extremity is normal. VASCULAR: Pulse exam is normal. Constitutionally, he appears in no distress. RANGE OF MOTION: Right shoulder, forward flexion 180, left shoulder 180, external rotation 70 and 70. Internal rotation T10 and T10. STRENGTH: 5/5 throughout. Instability tests are negative. RADIOGRAPHS: None. ASSESSMENT: Healed AC separation. PLAN: Follow up with me p.r.n. No restrictions from activities. MRW:[id number] C: 11/13/06 14:42 DOCUMENT: [id number] documented in this encounter Plan of Treatment Not on filedocumented as of this encounter Visit Diagnoses Not on filedocumented in this encounter Care Teams Security Attendant Relationship Specialty Start Date End Date Chencho Arauz PA-C PCP - General 05/14/1012/16/11 documented as of this encounter
--- OUTSIDE RECORDS SUMMARY | 2021-11-05 19:27 | XMS_ITS | Encounter Summary ---
:1975 Author Organization [facility] Address [address] [address] Care Team Providers Name Role Phone Chencho Arauz PA-C Primary Care Provider Unavailable Encounter Details Date Type Department Care Team Description 08/13/2007 Office Visit [facility] [address] [place] [address] Chencho Arauz PA-C Medicine [address] [facility] [address] [facility] [address] [place], [place] [address] Social History Tobacco Use Types Packs/Day Years Used Date Smoking Tobacco: Never Assessed Sex Assigned at Date Recorded Not on file documented as of this encounter Last Filed Vital Signs Vital Sign Reading Time Taken Comments Blood Pressure 110/70 08/13/2007 10:39 AM CDT Pulse 68 08/13/2007 10:39 AM CDT Temperature - - Respiratory Rate 18 08/13/2007 10:39 AM CDT Oxygen Saturation - - Inhaled Oxygen Concentration - - Weight 81.6 kg (179 lb 15.7 oz) 08/13/2007 10:39 AM C: 81.6kg CDT Height 180.3 cm (5' 11) 08/13/2007 10:39 AM C: 180.3cm CDT Body Mass Index 25.1 08/13/2007 10:39 AM CDT documented in this encounter Progress Notes Chencho Arauz PA-C - 08/13/2007 12:01 AM CDT Progress Notes signed by Chencho Arauz PA-C at 08/16/07 1338 Author: Chencho Arauz PA-C Service: (none) Author Type: Physician Database Tester Filed: 06/02/10 0519 Note Time: 08/13/07 0001 Status: Signed Continuous Improvement Analyst: Chencho Arauz PA-C (Physician Database Tester) NAME: JOSE LUIS SHIPLEY MR#: [id number] ACCT: [id number] VISIT: [id number] DICTATING CLINICIAN: MARISA Andrade CONFIRM #: [id number] LOC: 402 CLINIC PROGRESS NOTE : 1975. DATE: 08/13/07. CHIEF COMPLAINT: Ear blocked on the right side. No trauma or injury. Says he put drops in last night. They have not helped. REVIEW OF SYSTEMS: HEENT: Positive for that blocked ear on the right. Left is normal. No other symptoms are noted. Review of systems otherwise negative. OBJECTIVE: VS: BP: 110/70. P: 68. R: 18, resting. Wt: 180 lb. Head: Normocephalic and atraumatic. Ears: The right ear canal was impacted with cerumen. This was lavaged and curettaged away, revealing a normal TM. HEENT is otherwise normal. ASSESSMENT: Ceruminosis. PLAN: Lavage and curettage, as above. [id number] C: 08/14/07 06:01 CONFIRM #: [id number] documented in this encounter Plan of Treatment Not on filedocumented as of this encounter Visit Diagnoses Not on filedocumented in this encounter Care Teams Massage Coordinator Relationship Specialty Start Date End Date Chencho Arauz PA-C PCP - General 05/14/1012/16/11 documented as of this encounter
--- OUTSIDE RECORDS SUMMARY | 2021-11-05 19:27 | XMS_ITS | Encounter Summary ---
:1975 Author Organization [facility] Address [address], [place] [address] Care Team Providers Name Role Phone Chencho Arauz PA-C Primary Care Provider Unavailable Encounter Details Date Type Department Care Team Description 08/07/2007 Office Visit [facility] [address] Yevgeniy Castro MD Family Medicine [address] [place] [address] [place] [address] [phone] Social History Tobacco Use Types Packs/Day Years Used Date Smoking Tobacco: Never Assessed Sex Assigned at Date Recorded Not on file documented as of this encounter Last Filed Vital Signs Vital Sign Reading Time Taken Comments Blood Pressure 106/70 08/07/2007 8:02 AM CDT Pulse 60 08/07/2007 8:02 AM CDT Temperature - - Respiratory Rate - - Oxygen Saturation - - Inhaled Oxygen - - Concentration Weight 81.9 kg (180 lb 9.3 08/07/2007 8:02 AM C: 81.9kg oz) CDT Height 180.3 cm (5' 11) 08/07/2007 8:02 AM C: 180.3cm c CDT Body Mass Index 25.19 08/07/2007 8:02 AM CDT documented in this encounter Progress Notes Michael Castro - 08/07/2007 12:01 AM CDT H&P signed by Michael Castro MD at 08/10/07 3488 Author: Michael Castro MD Service: (none) Author Type: (none) Filed: 06/02/10 0511 Note Time: 08/07/07 0001 Status: Signed Water Project Engineer: Michael Castro MD (Physician) NAME: JOSE LUIS SHIPLEY MR#: [id number] ACCT: [id number] VISIT: [id number] DICTATING CLINICIAN: MICHAEL CASTRO MD CONFIRM #: [id number] LOC: 402 CLINIC PHYSICAL DATE OF VISIT: 08/07/2007 SUBJECTIVE: : 1975. Fwknce-eue-hkgo-old here for a physical. He is feeling well. He has some problems with wax buildup in his ears; otherwise, no concerns. PAST HISTORY: He had shoulder surgery for separation in 2006. FAMILY HISTORY: Parents are alive and well. Mother has hypothyroidism and hyperlipidemia. A paternal grandmother had Alzheimer's disease. 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 Has a 9-month-old son. HABITS: He feels like he eats fairly healthy. He is very physically active. He does not smoke. Rare caffeine. Two to 3 alcoholic beverages per week. Safety issues. Wears a seatbelt. No concerns about domestic violence or sexually transmitted disease. REVIEW OF SYSTEMS: Positive for some neck, back, and wrist pain often related to activity; otherwise, a complete review of systems is negative. OBJECTIVE: VS: BP: 106/70. P: 60. Ht: 5 ft 11 in. Wt: 180. Healthy, athletic-appearing man. HEENT: TMs are shiny and clear. Right TM is obscured by wax, left is completely clear. Pupils equal, round, and reactive to light. Sclerae nonicteric. Throat has no significant erythema nor exudate. NECK: Without lymphadenopathy or thyromegaly. LUNGS: Clear to auscultation and percussion. No wheezes, rales, or rhonchi heard. HEART: Heart tones regular. No murmur, gallop, or rub. ABDOMEN: Soft and nontender. No masses appreciable. No hepatosplenomegaly. : Circumcised. Testes are descended. No testicular masses. No inguinal hernias present. EXTREMITIES: Are well developed. ASSESSMENT: Healthy 32-year-old. Ceruminosis, right ear. PLAN: We will check a lipid profile and glucose. Discussed with his family history of hyperlipidemia, he may develop some. I probably would not treat with an LDL of less than 190, as he has no other risk factors. For his ear, we discussed options of home treatments versus ear irrigation. At this point he would like to try the home treatments. If not successful, he is welcome to return to have his ears irrigated; otherwise, followup can be in 1 to 2 years. [id number] C: 08/07/07 21:05 CONFIRM #: [id number] ING SPECIALIST documented in this encounter Plan of Treatment Not on filedocumented as of this encounter Visit Diagnoses Not on filedocumented in this encounter Care Teams Fraud Prevention Analyst Relationship Specialty Start Date End Date Chencho Arauz PA-C PCP - General 05/14/1012/16/11 documented as of this encounter
--- OUTSIDE RECORDS SUMMARY | 2021-11-05 19:27 | XMS_ITS | Encounter Summary ---
:1975 Author Organization [facility] Address [address] [place] [address] Care Team Providers Name Role Phone Chencho Arauz PA-C Primary Care Provider Unavailable Encounter Details Date Type Department Care Team Description 07/21/2006 Office Visit [facility] Micky Pastrana MD [address] [facility] [address] [facility] [place], [place] [address] [address] [place] [address] [phone] (Wo rk) Social History Tobacco Use Types Packs/Day Years Used Date Smoking Tobacco: Never Assessed Sex Assigned at Date Recorded Not on file documented as of this encounter Progress Notes Micky Pastrana MD - 07/21/2006 12:01 AM CDT Progress Notes signed by Micky Pastrana MD at 07/28/06 0846 Author: Micky Pastrana MD Service: (none) Author Type: Physician Filed: 06/01/101951 Note Time: 07/21/06 0001 Status: Signed Plant Engineer: Micky Pastrana MD (Physician) NAME: JOSE LUIS SHIPLEY MR#: [id number] ACCT: [id number] VISIT: [id number] DICTATING CLINICIAN: MICKY PASTRANA MD JOB: [id number] LOC: 3711 CLINIC PROGRESS NOTE DATE OF VISIT: 07/21/2006 SUBJECTIVE: CHIEF COMPLAINT: Followup for right AC joint separation, status post tight rope technique from [employer]. Date of stabilization 04/29/06. HISTORY OF PRESENT ILLNESS: Bird returns today following aforementioned procedure. He has been going to physical therapy at [facility] with Dyan once per week and is doing quite well. He still has complaint of a bump on the AC joint but he says that he is feels good and that he is getting better slowly. OBJECTIVE: Physical exam confirms the incision is clean, dry, and intact. He does have a bump over the AC joint, but no evidence of subluxation either anterior, posterior, or superior, or inferior. Range of motion right shoulder forward flexion is 160, left shoulder is to 170, external rotation 45 bilaterally, internal rotation right shoulder is to T-12, left shoulder is to T-10. Strength exam is 5/5 throughout. RADIOGRAPHS: AP view of the right shoulder. INDICATIONS: AC joint separation, status post reduction. ASSESSMENT: Interpretation of these x-rays shows that the AC joint is slightly high riding, looks like the fixation might be slowly failing as the intra-operative photos confirm normal alignment. Postoperative photos are starting to show some subluxation superiorly of the AC joint. PLAN: It told the patient that I think that his stabilization seems to be solid in terms of the clinical exam, but there is some radiographic evidence of some superior migration of the clavicle. However, when I take the projections and measure the distance between the buttons on the anchors, it appears to be equivalent. I am unsure whether or not this means that one of the buttons may be migrating through the bone, however, I have no evidence to suggest that on x-ray. The x-rays were reviewed all the way back to the intraoperative x-rays. I will see this patient back in 3 months' time for final clinical recheck. I do not believe that I would repeat the surgery today. I told him that. I just told him that any of the proximal migration that he has only if he becomes symptomatic with the regards to the pain should he consider a repeat surgery, as this would be a large endeavor. He verbalized an understanding to that. Will followup with me in 3 months' time for clinical recheck. Continue physical therapy. MRW:[id number] C: 07/23/06 06:23 DOCUMENT: [id number] documented in this encounter Plan of Treatment Not on filedocumented as of this encounter Procedures Procedure Name Priority Date/Time Associated Diagnosis Comme nts XR SHOULDER RT 1 Routine 07/21/2006 9:38 AM Resul ts for this VIEW CDT procedure are i n the results section. documented in this encounter Results XR Shoulder Rt 1 View (07/21/2006 9:38 AM CDT) Anatomical Region Laterality Modality Upper Extremity, Shoulder Other Specimen (Source) Anatomical Location Collection Method / Collectio n Time Received Time / Laterality Volume Narrative 07/21/2006 9:38 AM CDT AP VIEW OF THE RIGHT SHOULDER: INDICATIONS: ??AC joint separation, stat us post reduction. ASSESSMENT: ??Interpretation of these x- rays shows that the AC joint is slightly high riding, looks like the fixation might be slowly failing as the intra-operative photos co nfirm normal alignment. Postoperative photos are starting to mai w some subluxation superiorly of the AC joint. Dictating MICKY GUPTA MD Procedure Note Micky Pastrana MD - 04/12/2016Formatt ing of this note might be different from the original. AP VIEW OF THE RIGHT SHOULDER: INDICATIONS: AC joint separation, status post reduction. ASSESSMENT: Interpretation of these x-ra ys shows that the AC joint is slightly high riding, looks like the fixation might be slowly failing as the intra-operative photos co nfirm normal alignment. Postoperative photos are starting to mai w some subluxation superiorly of the AC joint. Dictating MICKY GUPTA MD Micky Pastrana MD RAD GD documented in this encounter Visit Diagnoses Not on filedocumented in this encounter Care Teams Fisher Relationship Specialty Start Date End Date Chencho Arauz PA-C PCP - General 05/14/1012/16/11 documented as of this encounter
--- OUTSIDE RECORDS SUMMARY | 2021-11-05 19:27 | XMS_ITS | Encounter Summary ---
:1975 Author Organization [facility] Address [address] [place] [address] Care Team Providers Name Role Phone Chencho Arauz PA-C Primary Care Provider Unavailable Encounter Details Date Type Department Care Team Description 06/30/2007 Office Visit [facility] [address] Alin Veliz MD Ophthalmology [address] [place] [address] [place], [place] [address] [phone] Social History Tobacco Use Types Packs/Day Years Used Date Smoking Tobacco: Never Assessed Sex Assigned at Date Recorded Not on file documented as of this encounter Plan of Treatment Not on filedocumented as of this encounter Visit Diagnoses Not on filedocumented in this encounter Care Teams Hostess Relationship Specialty Start Date End Date Chencho Arauz PA-C PCP - General 05/14/1012/16/11 documented as of this encounter
--- OUTSIDE RECORDS SUMMARY | 2021-11-05 19:27 | XMS_ITS | Encounter Summary ---
:1975 Author Organization [facility] Address [address] [place] [address] Care Team Providers Name Role Phone Chencho Arauz PA-C Primary Care Provider Unavailable Encounter Details Date Type Department Care Team Description 05/22/2007 Office Visit [facility] [address] Alin Veliz MD Ophthalmology [address] [place] [address] [place], [place] [address] [phone] Social History Tobacco Use Types Packs/Day Years Used Date Smoking Tobacco: Never Assessed Sex Assigned at Date Recorded Not on file documented as of this encounter Plan of Treatment Not on filedocumented as of this encounter Visit Diagnoses Not on filedocumented in this encounter Care Teams Applications Support Analyst Relationship Specialty Start Date End Date Chencho Arauz PA-C PCP - General 05/14/1012/16/11 documented as of this encounter
--- OUTSIDE RECORDS SUMMARY | 2021-11-05 19:27 | XMS_ITS | Encounter Summary ---
:1975 Author Organization [facility] Address [address] [place] [address] Care Team Providers Name Role Phone Chencho Arauz PA-C Primary Care Provider Unavailable Encounter Details Date Type Department Care Team Description 06/30/2007 PN Conversion Only SURVEYOR HELPER ROD [address] [place] [address] Social History Tobacco Use Types Packs/Day Years Used Date Smoking Tobacco: Never Assessed Sex Assigned at Date Recorded Not on file documented as of this encounter Plan of Treatment Not on filedocumented as of this encounter Visit Diagnoses Not on filedocumented in this encounter Care Teams Coding Validator Relationship Specialty Start Date End Date Chencho Arauz PA-C PCP - General 05/14/1012/16/11 documented as of this encounter
--- OUTSIDE RECORDS SUMMARY | 2021-11-05 19:27 | XMS_ITS | Encounter Summary ---
:1975 Author Organization [facility] Address [address] [place] [address] Care Team Providers Name Role Phone Chencho Arauz PA-C Primary Care Provider Unavailable Encounter Details Date Type Department Care Team Description 05/26/2007 Office Visit [facility] [address] Alin Veliz MD Ophthalmology [address] [place] [address] [place], [place] [address] [phone] Social History Tobacco Use Types Packs/Day Years Used Date Smoking Tobacco: Never Assessed Sex Assigned at Date Recorded Not on file documented as of this encounter Plan of Treatment Not on filedocumented as of this encounter Visit Diagnoses Not on filedocumented in this encounter Care Teams Kiln Car Repairer Relationship Specialty Start Date End Date Chencho Arauz PA-C PCP - General 05/14/1012/16/11 documented as of this encounter
--- OUTSIDE RECORDS SUMMARY | 2021-11-05 19:27 | XMS_ITS | Encounter Summary ---
:1975 Author Organization [facility] Address [address] [place] [address] Care Team Providers Name Role Phone Chencho Arauz PA-C Primary Care Provider Unavailable Encounter Details Date Type Department Care Team Description 08/13/2007 PN Conversion Only POCKET BUILDER [address] [place] [address] Social History Tobacco Use Types Packs/Day Years Used Date Smoking Tobacco: Never Assessed Sex Assigned at Date Recorded Not on file documented as of this encounter Plan of Treatment Not on filedocumented as of this encounter Visit Diagnoses Not on filedocumented in this encounter Care Teams Sql Developer Dba Relationship Specialty Start Date End Date Chencho Arauz PA-C PCP - General 05/14/1012/16/11 documented as of this encounter
--- OUTSIDE RECORDS SUMMARY | 2021-11-05 19:27 | XMS_ITS | Encounter Summary ---
:1975 Author Organization [facility] Address [address], [place] [address] Care Team Providers Name Role Phone Cehncho Arauz PA-C Primary Care Provider Unavailable Encounter Details Date Type Department Care Team Description 06/11/2010 PN Conversion Only CONVERSION CONVERSION Will Hodge [employer] [address] [place] [address] Social History Tobacco Use Types Packs/Day Years Used Date Smoking Tobacco: Never Assessed Sex Assigned at Date Recorded Not on file documented as of this encounter Plan of Treatment Not on filedocumented as of this encounter Visit Diagnoses Not on filedocumented in this encounter Care Teams Shirt Cleaner Relationship Specialty Start Date End Date Chencho Arauz PA-C PCP - General 05/14/1012/16/11 documented as of this encounter
--- OUTSIDE RECORDS SUMMARY | 2021-11-05 19:27 | XMS_ITS | Encounter Summary ---
:1975 Author Organization [facility] Address [address] [place] [address] Care Team Providers Name Role Phone Chencho Arauz PA-C Primary Care Provider Unavailable Reason for Visit Reason Comments Other Encounter Details Date Type Department Care Team Description 06/17/2006 Telephone [facility] Eugenia Caballero RN Other [address] [facility] [address] [place], [place] [address] [place] [address] [phone] Social History Tobacco Use Types Packs/Day Years Used Date Smoking Tobacco: Never Assessed Sex Assigned at Date Recorded Not on file documented as of this encounter Progress Notes Eugenia Caballero RN - 06/17/2006 12:10 PM CDT Phone Note filed by Eugenia Caballero RN at 05/29/102018 Author: Eugenia Caballero RN Service: (none) Author Type: Registered Nurse Filed: 05/29/102018 Note Time: 06/17/06 1210 Status: Signed Ink Printer: Eugenia Caballero RN (Registered Nurse) Pt s/p right shoulder AC joint stabilization 04/29. To start PT 06/20. Calling today with complaint of soreness and swelling of shoulder. Has not been taking any NSAIDS. Advised begin Ibuprofen, up to 800 mg 3 times a day and ice to shoulder. Continue activity restrictions. Discuss with PT. Caller agreed with plan. Created on 17Jun2006 12:10pm by EUGENIA CABALLERO RAL ROAD FOREMAN documented in this encounter Plan of Treatment Not on filedocumented as of this encounter Visit Diagnoses Not on filedocumented in this encounter Care Teams Insurance Adjuster Relationship Specialty Start Date End Date Chencho Arauz PA-C PCP - General 05/14/1012/16/11 documented as of this encounter
--- OUTSIDE RECORDS SUMMARY | 2021-11-05 19:27 | XMS_ITS | Encounter Summary ---
:1975 Author Organization [facility] Address [address] [place] [address] Care Team Providers Name Role Phone Chencho Arauz PA-C Primary Care Provider Unavailable Encounter Details Date Type Department Care Team Description 01/11/2009 PN Conversion Only WATER POLLUTION CONTROL TECHNICIAN [address] Chencho Arauz, [address] [place] [address] [address] [place] [address] Social History Tobacco Use Types Packs/Day Years Used Date Smoking Tobacco: Never Assessed Sex Assigned at Date Recorded Not on file documented as of this encounter Plan of Treatment Not on filedocumented as of this encounter Procedures Procedure Name Priority Date/Time Associated Diagnosis Comme nts GLUCOSE, WHOLE Routine 01/11/2009 4:30 PM Results for this BLOOD POCT PROOFSHEET CORRECTOR procedure are i n the results section. CHOLESTEROL, TOTAL Routine 01/11/2009 4:30 PM Res ults for this AND HDL PROOFSHEET CORRECTOR procedure are i n the results section. documented in this encounter Results BEDSIDE GLUCOSE MONITOR (01/11/2009 4:30 PM PROOFSHEET CORRECTOR) P athologist Signature Length Of Fast 4.0 Hours HP CONVERSION Bedside Blood 92 mg/dL HP CONVERSION Glucose Test Specimen (Source) Anatomical Collection Method Collection Time Re ceived Time Location / / Volume Laterality 01/11/2009 4:30 PM PROOFSHEET CORRECTOR Chencho Arauz PA-C LAB_1 Performing Organization Address City/State/ZIP Code Phon e Number HP CONVERSION Cholesterol, Total and HDL (01/11/2009 4:30 PM PROOFSHEET CORRECTOR) Analysis Performed At Patho logist Time Signature Cholesterol/HDL 4.7 No normal HP CONVERSION Ratio Screen range Cholesterol 197 <200 mg/dL HP CONVERSION HDL Cholesterol 42 >40 mg/dL HP CONVERSION Specimen (Source) Anatomical Collection Method Collection Time Re ceived Time Location / / Volume Laterality 01/11/2009 4:30 PM PROOFSHEET CORRECTOR Chencho Arauz PA-C LAB_1 Performing Organization Address City/State/ZIP Code Phon e Number HP CONVERSION documented in this encounter Visit Diagnoses Not on filedocumented in this encounter Care Teams Furnace Attendant Relationship Specialty Start Date End Date Chencho Arauz PA-C PCP - General 05/14/1012/16/11 documented as of this encounter
--- OUTSIDE RECORDS SUMMARY | 2021-11-05 19:27 | XMS_ITS | Encounter Summary ---
:1975 Author Organization [facility] Address [address] [place] [address] Care Team Providers Name Role Phone Chencho Arauz PA-C Primary Care Provider Unavailable Reason for Visit Reason Comments Abdominal Pain Encounter Details Date Type Department Care Team Description 11/19/2011 Office Visit [facility] Dee Dee Soto, Abdomi nal pain, [address] unspecified site Gastroenterology [address] [place] [address] (Primary Dx) [address] [place] [address] Social History Tobacco Use Types Packs/Day Years Used Date Smoking Tobacco: Never Assessed Sex Assigned at Date Recorded Not on file documented as of this encounter Last Filed Vital Signs Vital Sign Reading Time Taken Comments Blood Pressure 100/60 11/19/2011 3:08 PM CDT Pulse - - Temperature - - Respiratory Rate - - Oxygen Saturation - - Inhaled Oxygen Concentration - - Weight 78.9 kg (174 lb) 11/19/2011 3:08 PM CDT Height 180.3 cm (5' 11) 11/19/2011 3:08 PM CDT Body Mass Index 24.27 11/19/2011 3:08 PM CDT documented in this encounter Patient Instructions Patient InstructionsDee Dee Soto, MATT LEVINE - 11/19/2011 3:40 PM CDT Any time there is pain, note what your bowel habit has been in 3 days and what it is in the next several hours. Keep these records for review to see whether gas or stool overload is causing the pain. Blood test. stool test hyoscyamine sublingual 1 and may repeat in half an hour, then wait 4+ hours... relaxes smooth muscle of the gut only - anti spasmodic. dry mouth, constipation, drowsiness, light headedness. CALL for refills. documented in this encounter Progress Notes Dee Dee Soto APRN, CNP - 11/19/2011 5:40 PM CDT Progress Notes signed by FANY Boss at 11/21/111823 Author: FANY Boss Service: (none) Author Type: Nurse Practitioner Filed: 11/21/111823 Note Time: 11/19/111739 Status: Signed Cryogenic Transport Driver: FANY Boss (Nurse Practitioner) NAME: JOSE LUIS SHIPLEY MR#: [id number] CSN: [id number] AUTHENTICATING CLINICIAN: FANY Boss CONFIRM #: [id number] LOC: 3533 CLINIC PROGRESS NOTE DATE OF VISIT: 11/19/2011 : 1975 CHIEF COMPLAINT: Followup regarding abdominal pain. HISTORY OF PRESENT ILLNESS: Jose Luis is a 36-year-old man whom I met 04/24/2011, regarding his pain. He has intermittent intenseabdominal pain occurring usually postprandially, which may last 1/2 hour to several hours. It is sometimes causing him to double over. He was advised to have some dietary trials with no dairy above all, to move stools through a bit faster, to note what he has ingested 24 hours prior to bowel habit, and what bowel habit had been for 3 days, and to return as needed. Jose Luis continues to have pains in a similar fashion, which may be more extreme at times. One single morning he had ice cream in the evening and tremendous pain the next morning. A few days ago he hadlow level discomfort on and off through the day, but after dinner had tremendous pain. Only occasionally does the pain build over a few hours, and then come on strong generally after eating. More oftenit comes on without any warning. It will occur 3 or 4 times in 1 to 1-1/2 months. Jose Luis found no association with dairy exclusion. He rarely uses nonsteroidal anti-inflammatories.He did note after one of the recent episodes that he had a more gassy and loose stool within a couple hours. He has not made other associations, and does not feel as though he is due to have a bowel movement at the time these pains occur. Between pains he feels entirely well with normal energy, normalappetite, and no pain. He has no extraintestinal symptoms of inflammatory bowel disease. He has not had fevers, chills, weight loss or weight gain. MEDICAL HISTORY: No chronic issues. MEDICATIONS: None. ADVERSE DRUG REACTIONS: None known. REVIEW OF SYSTEMS: Denies current symptoms of acute illness or localized infection. No other complaints. OBJECTIVE: Blood pressure 100/60, weight 174 pounds, height 71 inches. Clean, neatly groomed, casually dressed, fit-appearing, well appearing man in no visible distress. EYES: Anicteric. Breathing is calm. ABDOMEN: Flat, tympanic in the outline of the colon, particularly left upper quadrant, mid right, with no masses or organomegaly, and nontender. EXTREMITIES: Without edema, cyanosis, clubbing. ASSESSMENT: A 36-year-old man who continues to have what sounds most like a functional abdominal pain, associated more often with gas or stool overload. He does have a high pain threshold, but in addition to having no pain or tenderness between episodes, also has normal energy and appetite throughout. He has no red flags warranting more intensive studies thus far. PLAN: 1. CBC, CRP, abdominal flat plate. 2. Hyoscyamine sublingual at the time of pain. 3. Call if he has benefit from hyoscyamine and wishes refill. 4. Call if he develops any additional symptoms that may give a clue or warrant further study. 5. Return to GI clinic as needed or in 1 year for further prescription. We reviewed the assessment and plan at length. He will receive results by letter. Total visit 25 minutes with counseling time 15 minutes. SCB:EZIO C: CONFIRM #: [id number] documented in this encounter Plan of Treatment Not on filedocumented as of this encounter Procedures Procedure Name Priority Date/Time Associated Diagnosis Comme nts XR ABD FLAT Routine 11/19/2011 3:57 PM Abdominal pain, Result s for this (STANDARD) CDT unspecified site procedure a re in the results section. documented in this encounter Results XR Abd Flat (Standard) (11/19/2011 3:57 PM CDT) Anatomical Region Laterality Modality Abdomen Other Specimen (Source) Anatomical Location Collection Method / Collectio n Time Received Time / Laterality Volume Narrative 11/19/2011 4:07 PM CDT There is a moderate amount of stool in r ight colon. ??The the hepatic flexure is moderately gas distended with the stool in it. ??No evidence of bowel obstruction or mass. ? ?No abnormal calcifications in the abdomen. ??Osseous structures are no rmal. Procedure Note Chris Villanueva - 07/28/2015Formattin g of this note might be different from the original. There is a moderate amount of stool in r ight colon. The the hepatic flexure is moderately gas distended with the stool in it. No evidence of bowel obstruction or mass. N o abnormal calcifications in the abdomen. Osseous structures are norm al. Dee Dee Soto PROFESSIONAL SHOPPER, SOCIAL SCIENCES CHAIR RAD GD documented in this encounter Visit Diagnoses Diagnosis Abdominal pain, unspecified site - Prima ry documented in this encounter Care Teams Interlocking And Signal Mechanic Relationship Specialty Start Date End Date Chencho Arauz PA-C PCP - General 05/14/1012/16/11 documented as of this encounter
--- OUTSIDE RECORDS SUMMARY | 2021-11-05 19:27 | XMS_ITS | Encounter Summary ---
:1975 Author Organization [facility] Address [address], [place] [address] Care Team Providers Name Role Phone Chencho Arauz PA-C Primary Care Provider Unavailable Encounter Details Date Type Department Care Team Description 01/11/2009 Office Visit [facility] [address] [place] [address] Chencho Arauz PA-C Medicine [address] [facility] [address] [facility] [place] [address] [place], [place] [address] Social History Tobacco Use Types Packs/Day Years Used Date Smoking Tobacco: Never Assessed Sex Assigned at Date Recorded Not on file documented as of this encounter Progress Notes Chencho Arauz PA-C - 01/11/2009 12:01 AM CST Progress Notes signed by Chencho Arauz PA-C at 01/11/09 1644 Author: Chencho Arauz PA-C Service: (none) Author Type: Physician Language Translator Filed: 06/02/10 1823 Note Time: 01/11/09 0001 Status: Signed Multiple Knife Edge Trimmer Operator: Chencho Arauz PA-C (Resource) Preventive Exam Chief Complaint Patient presents for a routine preventive physical exam. He has no symptomatic complaints or other concerns. History of present illness Past Medical History: There are no major adult illnesses, childhood illnesses, traumas, or surgeries. Most recent physical examination her screening was: Surgical History: Repair of her right shoulder separation years ago Adverse Drug Reactions: Pt's Adverse Drug Reactions were reviewed today, and updated on the Health Profile of [facility]. Current Medications: Reviewed today and updated on Health Profile in [facility]. This includes: Family History: (First degree family members) Family history was reviewed today and, except as noted, was found to be negative. No colon CA. No diabetes mellitus. No hypertension. No hyperlipidemia. Positive for hypothyroidism the mother No testicular or prostate cancer. 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 The patient performs monthly genital exams. Calcium intake is adequate. Colonoscopy or sigmoidoscopy done: Not indicated Exercise is adequate. Recent lipid screen has been performed. The patient practices safe sex. Seatbelts are used at all times. Tetanus immunization is up-to-date. Sun protection is used. The health assessment for was gone over in depth including the review of systems nodule. Review of Systems: General: Current state of health is good HEENT : Denies headache, diplopia, blurred vision, eye pain, redness, cataracts, loss of visual ramirez, hearing loss, tetanus, vertigo, sinus pain or pressure, problems in the oral cavity with teeth or gums, denies sore throat, or change in voice. Pulmonary: Denies any cough, sputum, hemoptysis, dyspnea, pleuritic chest pain, wheezing, asthma, recurrent infections, change in sleep patterns, or occupational exposures. Cardiac : Denies any chest pain pressure, palpitations, orthopnea, PND, dyspnea, pedal edema, heart murmur, hypertension, or hyperlipidemia. GI: Denies any weight gain or loss, nausea, vomiting, diarrhea, constipation, hematochezia, melena, hematemesis, reflux, or change in caliber of stools. : Denies any dysuria hematuria nocturia frequency polyuria decreased force of urination incontinence. Denies any hernia, testicular masses or pain penile discharge or sores prostatitis or sexual dysfunctions and no problems with prostate. Neurological: Denies dizziness syncope, seizures, vertigo, paresthesias, weakness, tremor. Musculoskeletal: Denies arthritis joint stiffness or swelling myalgias, gout, Lyme or back pain. Vascular: Denies phlebitis, varicosities, claudication, cramping. Endocrine: Denies polyuria, polydipsia, polyphagia, heat or cold intolerance, thyroid problems, tremor, or osteoporosis. Hematologic: Denies any anemia, easy bruising or bleeding, prior transfusion reactions, lymph node enlargement, pain, fatigue, fever, chills, or night sweats. Dermatologic: Denies rashes, moles (recent changes), birthmarks, dryness, pruritus, lumps, or pigment changes. Psych: Denies depression, agitation, panic/anxiety, memory disturbances, personality changes, hallucinations. OBJECTIVE: Vital Signs: General: Patient alert, in NAD. HEENT: Head is normocephalic and atraumatic. Ears: Normal Eyes: PERRLA, fundi is normal, E. O.. M.. -- full Nose: Normal Throat: Normal Neck: Supple, without adenopathy, thyromegaly or mass. Extremities: FROM with good strength, no lesions or deformities, no pain swelling effusion, crepitance, contractures, joint laxity, Spine is normal. CV: RRR without murmurs, rubs or gallops, lifts, heaves or thrills. Resp: Clear to auscultation and percussion, no rales, rhonchi, wheezing or any difficulty in breathing. Abdomen: Soft, non-tender, without masses or organomegaly, bowel sounds are normal, no rebound guarding or rigidity. Breasts: Nontender, without masses. Lymphatic: No neck, supraclavicular, axillary or groin lymphadenopathy. Genitalia: Circumcised male without lesions or discharge. No evidence of inguinal or femoral hernias Skin: No worrisome lesions. Neuro: CN II-XII are intact, DTRs are 2+/2 and normal, motor and sensory are intact. Psychiatric: Alert & oriented with normal affect and abstract concepts and general information is intact. Patient does not appear depressed or anxious. ASSESSMENT: Routine preventive exam. Healthy male. Immunizations reviewed and updated in Health Profile of [facility]. Pt. is up to date. See Problem List on Patient Health Profile PLAN: May receive H1 N1 vaccine today Follow-up in 1 year, sooner PRN any concerns. Patient education about pertinent positives and negatives in this physical examination. Prescriptions provided, see OP Med list on Health Profile in [facility]. Labs: Cholesterol HDL, blood sugar We will mail lab results to patient, if any are abnormal and worrisome I will speak to the patient personalmarissa. Preventive health counseling provided: *SH~DNS~PEM RAL MANAGER IN TRAINING documented in this encounter Plan of Treatment Not on filedocumented as of this encounter Visit Diagnoses Not on filedocumented in this encounter Care Teams Senior Trial Attorney Relationship Specialty Start Date End Date Chencho Arauz PA-C PCP - General 05/14/1012/16/11 documented as of this encounter
--- OUTSIDE RECORDS SUMMARY | 2021-11-05 19:27 | XMS_ITS | Encounter Summary ---
:1975 Author Organization [facility] Address [address], [place] [address] Care Team Providers Name Role Phone Chencho Arauz PA-C Primary Care Provider Unavailable Reason for Visit Reason Comments Other Encounter Details Date Type Department Care Team Description 05/19/2007 Telephone [facility] [address] Delbert Mccabe MD Other Ophthalmology [address] [facility] [address] [place] [address] [place] [address] [phone] Social History Tobacco Use Types Packs/Day Years Used Date Smoking Tobacco: Never Assessed Sex Assigned at Date Recorded Not on file documented as of this encounter Progress Notes Gerson Funez RN - 05/19/2007 2:45 PM CDT Phone Note filed by Gerson Funez RN at 05/30/101810 Author: Gerson Funez RN Service: (none) Author Type: Registered Nurse Filed: 05/30/101810 Note Time: 05/19/07 1445 Status: Signed Pharmaceutical Detailer: Gerson Funez RN (Registered Nurse) Patient calling; hit in OD playing basketball last week. Seen at [facility] ER. No X Rays done. Initially had black eye and swelling pretty much resolved. Past 3 days started to notice double vision on gaze to right. To Cesia Rollins for scheduling imaging prior to Dr. Hays (did not schedule MD srinatht yet) Created on 19May2007 2:45pm by GERSON FUNEZ On 19May2007 3:08pm CESIA ROY wrote: ct scan of orbits and brain scheduled for May 20 at 7 am at [facility] per . Hernandez's phone number is [phone]. He agrees with plan to have scan and await results to determine what kind of appt he might need. He will call the clinic Friday afternoon to check for results of scan if he hasn't heard by then. Acknowledged by CESIA ROY on 3:08pm On 20May2007 2:37pm KLAUS MCCABE wrote: Please call pt and schedule eye exam for this Friday and we should have results of CT by then. Acknowledged by KLAUS MCCABE on 2:37pm On 20May2007 2:47pm OMAR SMITH wrote: Pt scheduled with ML on Friday for CT results and f/u injury. Acknowledged by OMAR SMITH on 2:47pm On 21May2007 4:31pm GERSNO FUNEZ wrote: Should he be seeing [facility] for his appt Fri? has a fx on CT. On 22May2007 9:32am KLAUS MCCABE wrote: Discussed with triage. Pt. will see SMR today if we can reach pt. to change appt. Otherwise, he will see me this AM. Acknowledged by KLAUS MCCABE on 9:32am On 22May2007 10:50am GERSON FUNEZ wrote: Patient called and I cancelled with ML; he will see SMR this afternoon. Acknowledged by KLAUS MCCABE on 11:21am Acknowledged by GARTH MCCLELLAN on 11:25am VULCANIZING OPERATOR documented in this encounter Plan of Treatment Not on filedocumented as of this encounter Visit Diagnoses Not on filedocumented in this encounter Care Teams Industrial Health And Safety Professor Relationship Specialty Start Date End Date Chencho Arauz PA-C PCP - General 05/14/1012/16/11 documented as of this encounter
--- OUTSIDE RECORDS SUMMARY | 2021-11-05 19:27 | XMS_ITS | Encounter Summary ---
:1975 Author Organization [facility] Address [address] [place] [address] Care Team Providers Name Role Phone Chencho Arauz PA-C Primary Care Provider Unavailable Reason for Visit Reason Comments URI Encounter Details Date Type Department Care Team Description 01/21/2011 Office Visit [facility] [address] Nick Schrader MD Influenza (Primary Family Medicine [address] [facility] Dx) [address] [facility] [place] [id number] [phone] Social History Tobacco Use Types Packs/Day Years Used Date Smoking Tobacco: Never Assessed Sex Assigned at Date Recorded Not on file documented as of this encounter Last Filed Vital Signs Vital Sign Reading Time Taken Comments Blood Pressure 108/64 01/21/2011 2:00 PM FOOD PREPARATION SUPERVISOR Pulse 66 01/21/2011 2:00 PM FOOD PREPARATION SUPERVISOR Temperature 36.5 ??C (97.7 ??F) 01/21/2011 2:00 PM FOOD PREPARATION SUPERVISOR Respiratory Rate - - Oxygen Saturation - - Inhaled Oxygen Concentration - - Weight 78 kg (172 lb) 01/21/2011 2:00 PM FOOD PREPARATION SUPERVISOR Height - - Body Mass Index 23.99 08/07/2010 9:12 AM CDT documented in this encounter Progress Notes Nick Schrader MD - 01/22/2011 7:37 AM CST SUBJECTIVE: 35 your 1 for evaluation of headache sore throat congestion and muscle weakness. He alsohas had headache but that is better today though. His symptoms are in going on for 3 days though 5 days ago he began to experience fatigue. He has not had high fever. There's been no ear pain, shortness of breath or chest pain. 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 He is not aware of any influenza outbreak in his school. Adverse Drug Reactions: Updated in EHR Medications: Reconciled. See Medication List in EHR. PMH: Reviewed in EHR no significant illnesses. FH: Reviewed in EHR SH: Tobacco and alcohol use reviewed on vital signs flow sheet. 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 Pleasant male no distress. TMs and EACs are clear. Sclera conjunctiva normal. Nose pharynx dentition reveals clear rhinorrhea and mild sore inflammation without exudate. Neck is supple without adenopathy. Lungs are clear to auscultation and percussion. Heart is regular without murmur or gallop. Rapid influenza testing is negative. Assessment: Viral respiratory infection PLAN: There is no evidence of bacterial infection at this point. We discussed symptomatic managementand he will followup as needed for worsening symptoms or if he's not improving by next week. The patient was discharged ambulatory and in stable condition. documented in this encounter Plan of Treatment Not on filedocumented as of this encounter Procedures Procedure Name Priority Date/Time Associated Diagnosis Comme nts INFLUENZA A AND B STAT 01/21/2011 2:22 PM Influenza Resu lts for this ANTIGEN FOOD PREPARATION SUPERVISOR procedure are i n the results section. documented in this encounter Results Influenza A and B Antigen (01/21/2011 2:22 PM FOOD PREPARATION SUPERVISOR) [facility] Method Time Signature Influenza A & HP CONVERSION B Ag Influenza A & Influenza A/B Negative by Rapid Antigen HP CONVERSION B Ag A negative result does not e xclude influenza virus~infections.~For more conclusive testing, order a confirmatory test by~either a molecular method or viral culture. Comment: ? ORDERED BY: KENNY MARUQEZ SOURCE: Nasopharynx ?COLLECTED: ??01/21/11 14:22 ? PLATED: ? 01/21/11 14:27 Influenza Virus Types A + B Antigen ?FINAL ? 01/21/11 14:49 ? Influenza A/B Negative by Rapid Antigen ? A negative result does not exclude influenza virus ? infections. ? For more conclusive testing , order a confirmatory test by ? either a molecular method o r viral culture. Specimen (Source) Anatomical Collection Method Collection Time Re ceived Time Location / / Volume Laterality Nasopharynx: 01/21/2011 2:22 PM FOOD PREPARATION SUPERVISOR Narrative HP CONVERSION - 01/21/2011 2:49 PM FOOD PREPARATION SUPERVISOR Performed at [facility], [address] [place] [address] Nick Schrader MD LAB_1 Performing Organization Address City/State/ZIP Code Phon e Number HP CONVERSION documented in this encounter Visit Diagnoses Diagnosis Influenza - Primary Influenza with other respiratory manifes tations documented in this encounter Care Teams Primer Inserting Machine Adjuster Relationship Specialty Start Date End Date Chencho Arauz PA-C PCP - General 05/14/1012/16/11 documented as of this encounter
--- OUTSIDE RECORDS SUMMARY | 2021-11-05 19:27 | XMS_ITS | Encounter Summary ---
:1975 Author Organization [facility] Address [address] [place] [address] Care Team Providers Name Role Phone Chencho Arauz PA-C Primary Care Provider Unavailable Reason for Visit Reason Comments Abdominal Pain Encounter Details Date Type Department Care Team Description 04/24/2011 Office Visit [facility] Dee Dee Soto, Abdomi nal pain, [address] unspecified site Gastroenterology [address] [place] [address] (Primary Dx) [address] [place] [address] Social History Tobacco Use Types Packs/Day Years Used Date Smoking Tobacco: Never Assessed Sex Assigned at Date Recorded Not on file documented as of this encounter Last Filed Vital Signs Vital Sign Reading Time Taken Comments Blood Pressure 106/72 04/24/2011 3:35 PM CDT Pulse - - Temperature - - Respiratory Rate - - Oxygen Saturation - - Inhaled Oxygen Concentration - - Weight 76.9 kg (169 lb 9.6 oz) 04/24/2011 3:35 PM CDT Height - - Body Mass Index 23.65 08/07/2010 9:12 AM CDT documented in this encounter Patient Instructions Patient InstructionsDee Dee Soto, MATT LEVINE - 04/24/2011 4:27 PM CDT Recommend Suggest two diet trials. One or TWO weeks dairy free (including no cheese) then add it back in 2 servings daily. One week fructose free (including fruit, fruit juice, high fructose corn syrup, tomato) OK to move stool through faster just to see - prunes, or miralax or other... If things get worse call - would add a test or two prior to a return visit. Any time there is pain, write down what you have eaten and drunk in the previous 24 hours and note what your bowel habit has been in 3 days. Keep these records for review to see whether a food or food group is causing the episode.. documented in this encounter Progress Notes Dee Dee Soto APRN, CNP - 04/24/2011 6:04 PM CDT Progress Notes signed by FANY Boss at 04/25/11 0847 Author: FANY Boss Service: (none) Author Type: Nurse Practitioner Filed: 04/25/1147 Note Time: 04/24/111803 Status: Signed Liquid Fertilizer Servicer: FANY Boss (Nurse Practitioner) NAME: JOSE LUIS SHIPLEY MR#: [id number] CSN: [id number] AUTHENTICATING CLINICIAN: FANY Boss CONFIRM #: [id number] LOC: 3533 CLINIC PROGRESS NOTE DATE OF VISIT: 04/24/2011 : 1975 CHIEF COMPLAINT: Abdominal pain. HISTORY OF PRESENT ILLNESS: Jose Luis is a 36-year-old man, of one of my celiac disease patients. He comes today because he has occasional terrible stomach ache with less discomfort only occasionally in between times. It has been happening for about a year, but is a worsening at times. One week ago he had an especially severe episode that lasted longer, from after lunch into the evening. Jose Luis has pain episodes that typically begin half an hour or so after meals. At its most intense, he is doubled over and could nearly vomit. In between episodes he does not have decreased appetite, energy, any nausea or vomiting, heart pain, dysphagia. He also has no skin sores or rashes, mouth sores, eye pains. He does have a lifelong history of joint pain which is primarily in the hands and wrists, since childhood, for which he has been seen and has no explanation. Jose Luis has regular bowel movements, 1 or 2 daily which are formed, normal, with no strain or pain. At times of his abdominal pain he has tried to have evacuation, but has not had success. He has felt as though he has increased gas. He also has increased gas occasionally otherwise, not consistently. Bowel habit is never black or bloody. Negative for skin sores or rashes, includes the perineum. Jose Luis has wondered whether he has had a reaction with the milk a couple times. Other times he seems to tolerate it, though he might have a very mild discomfort after eating cereal which is increased if he has 2 servings. He only drinks pop occasionally, not daily, only has alcohol 1 or 2 servings a week. The pain usually is more short lasting, half an hour to a couple hours. It does not localize to a specific spot, but seems to be across the mid abdomen. When he shows the location supine, it is about at the level of the umbilicus. MEDICAL HISTORY: Without chronic conditions other than his undiagnosed joint pains. MEDICATIONS: None. ADVERSE DRUG REACTIONS: None. FAMILY HISTORY: Maternal grandmother with pancreatic cancer age 90, with no known contributing factors. No other GI conditions, cancers, or autoimmune diseases. Mother with thyroid disorder about age 60. 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 They have a child at home who is 4 years old on MiraLA[employer]. Jose Luis gets regular workouts using both stair stepping half an hour 3 days a week as well as group sports 1 or 2 times a week. REVIEW OF SYSTEMS: No other symptoms involved, including no cough, shortness of breath, numbness, tingling, headaches, genitourinary disorders. OBJECTIVE: Blood pressure 106/72, weight 169 pounds, which is a deliberate decrease from 180, height 71 inches. Clean, slender, fit and nourished-appearing man in no visible distress. EYES: Anicteric. HEAD AND NECK: Without adenopathy or nodularity. BACK: With no tenderness to palpation or percussion. CHEST: With good excursion and grossly normal breath sounds. ABDOMEN: Flat, soft, nontender, with no masses or organomegaly. There is some tympany at the right. EXTREMITIES: Without edema, cyanosis, clubbing. Coke Still Cleaner, radial pulses, knee DTRs all strong and equal. NEUROPSYCHIATRIC: Neck is fully oriented, speech is fluent and logical, mood is stable and affect appropriate. He represents himself in a forthright fashion. Results tTG of July 2010. No other associated results, distant past normal liver tests and blood counts. No imaging. ASSESSMENT: Man who in all likelihood has colonic discomfort associated with suboptimal movement, whether it be associated with cheese and gas of lactose, gas from his high fructose intake, mild stool overload which is not overt constipation is uncertain. There are no red flags for having inflammatory bowel disease or other GI disorder. Most of his pain episodes are more short-lived than with angioedema, and all have been associated with postprandial time span. It is highly unlikely that he has any worse condition, though somewhat progression in his pain episodes is to be noted. PLAN: 1. Dietary trials are advised to have 2 weeks dairy free, then reintroduce dairy, 1 week fructose free and then reintroduce fruit. 2. Anytime he has a more severe episode, to note both what he has ingested in 24 hours as well as what his bowel habit has been in 3 days. 3. I encouraged him to move his stool through a bit faster for a month or longer, to see whether that helps his discomfort. He may use prunes, soluble fiber, or MiraLAX. 4. He is to call if he has any increased difficulty with the pain, any other associated symptoms, change in bowel habit which has not occurred thus far. If he has persistence of symptoms despite the 3 trials noted above, please also call. 5. We discussed the possibility of doing basic screening tests to begin with complete blood count. I considered also calprotectin, but there are no symptoms between his episodes which are worrisome or suggestive. If he calls, we will probably have him do some basic screening tests prior to return to clinic and determining what needs to be done further. Total visit 40 minutes, with counseling time 25 minutes. SCB:EZIO C: CONFIRM #: [id number] documented in this encounter Plan of Treatment Not on filedocumented as of this encounter Visit Diagnoses Diagnosis Abdominal pain, unspecified site - Prima ry documented in this encounter Care Teams Staff Readiness Officer Relationship Specialty Start Date End Date Chencho Arauz PA-C PCP - General 05/14/1012/16/11 documented as of this encounter
--- OUTSIDE RECORDS SUMMARY | 2021-11-05 19:27 | XMS_ITS | Encounter Summary ---
:1975 Author Organization [facility] Address [address], [place] [address] Care Team Providers Name Role Phone Unavailable Primary Care Provider Unavailable Encounter Details Date Type Department Care Team Description 05/21/2007 Hospital Encounter RESTORATION CONVERSION Milad Michele MD [address] [facility] [address] [place] [address] (Wo rk) Social History Tobacco Use Types Packs/Day Years Used Date Smoking Tobacco: Never Assessed Sex Assigned at Date Recorded Not on file documented as of this encounter Medications at Time of Discharge Medication Sig Dispensed Refills Start Date End Date unknown medication Indications: PN: 0 11/10/2006 08/13/2007 unknown medication Indications: PN: 0 07/21/2006 08/13/2007 unknown medication Indications: PN: 0 06/06/2006 08/13/2007 unknown medication Indications: PN: 0 04/28/2006 08/13/2007 unknown medication Indications: PN: 0 08/08/2004 08/13/2007 documented as of this encounter Plan of Treatment Not on filedocumented as of this encounter Procedures Procedure Name Priority Date/Time Associated Diagnosis Comme nts CT HEAD WO IV CONT Routine 05/21/2007 6:59 AM Res ults for this CDT procedure are i n the results section. CT ORBITS WO IV Routine 05/21/2007 6:58 AM Result s for this CONT CDT procedure are i n the results section. documented in this encounter Results CT Head WO IV Cont (05/21/2007 6:59 AM CDT) Anatomical Region Laterality Modality Head Other Specimen (Source) Anatomical Location Collection Method / Collectio n Time Received Time / Laterality Volume Impressions 05/21/2007 6:59 AM CDT : ??Unremarkable unenhanced cranial CT examination. [facility] satellite/[id number] Dictating JUAQUIN GUTIERRES RADIOLOGIST Narrative 05/21/2007 6:59 AM CDT CLINICAL HISTORY: ??Double vision, trauma. TECHNICAL DATA: ??4.5 mm axial images th rough calvarium without contrast. FINDINGS: ??No prior [place] jazmyne rison studies. ??The ventricles, sulci and cisterns are of no rmal size and configuration. There is no evidence for intracranial ma ss, mass effect, attenuation abnormality, intracranial hemorrhage, or calvarial fracture. ??The visualized paranasal sinuses and mastoid air cells are unopacified. Procedure Note Juaquin More, - 04/12/2016Formattin g of this note might be different from the original. CLINICAL HISTORY: Double vision, trauma. TECHNICAL DATA: 4.5 mm axial images thro ugh calvarium without contrast. FINDINGS: No prior [place] compari son studies. The ventricles, sulci and cisterns are of no rmal size and configuration. There is no evidence for intracranial ma ss, mass effect, attenuation abnormality, intracranial hemorrhage, or calvarial fracture. The visualized paranasal sinuses and mastoid air cells are unopacified. IMPRESSION : Unremarkable unenhanced cranial CT exa mination. [facility] satellite/[id number] Dictating JUAQUIN GUTIERRES RADIOLOGIST Micky Alvarez MD RAD CT CT Orbits WO IV Cont (05/21/2007 6:58 AM CDT) Anatomical Region Laterality Modality Head, Neck Other Specimen (Source) Anatomical Location Collection Method / Collectio n Time Received Time / Laterality Volume Impressions 05/21/2007 6:58 AM CDT : ? 1. ?? Comminuted ?dehiscen t blowout type fracture involving the inferomedial right orbital ?f sean with herniation of extraconal orbital fat through the fract ure defect ?into the superior right maxillary antrum. ? Slight herniation of the inferior rectus muscle. ??Question diplo fe related to right inferior rectus dysfunction clinically. ? 2. ?? Minimal ?displaced p otential fracture of the lamina papyracea on the right with a ?sm all amount of fluid and/or blood products within the adjacent right ?middle and right posterior ethmoid air cells. ??The medial aspect o f the right medial rectus muscle abuts ?and potentially ext ends into the fracture site best demonstrated coronal ?reconstruct ion images 26 through 28. Also question any clinical symptomatolog y of right medial rectus dysfunction. ? 3. ?? Facial ?and presepta l periorbital soft tissue swelling. No definite evidence for ocular or orbit al hematoma. ??No evidence for optic nerve compression. ? 4. ?? Asymmetric ?prominen ce of the palatine tonsils bilaterally. ??Recommend direct visualiz ation. [facility]/[id number] Dictating JUAQUIN GUTIERRES RADIOLOGIST Narrative 05/21/2007 6:58 AM CDT CLINICAL HISTORY: ??Trauma, diplopia. TECHNICAL DATA: ??1 mm axial images thro ugh the orbits without contrast. ??Coronal reconstructions obta ined. FINDINGS: ??No prior comparisons. ??Ther e is an osseous defect involving the inferomedial floor of the right orbits with a small probable adjacent comminuted fracture fr agments most consistent with a blowout type fracture. ??There is emily iation of orbital fat into the superior anteromedial aspects of the rig ht maxillary antrum best demonstrated on axial images 121 through 135 and coronal reconstructed images 27 through 33. ??Th e oblique transverse dimension of the osseous defect measuring 8 mm. ?? The oblique AP dimension of the osseous blowout fracture defect mandi ures 9 mm. ??There is slightly protrusion of the inferior aspect of the inferior rectus muscle into the osseous defect best demonstrated on coronal reconstruction images 28 and 29. ??Question clinical symptomat ology of inferior rectus dysfunction as an etiology for diplopia. ??There is mild stranding of the conal and extraconal inferomedial or bital fat as well as the orbital fat that has herniated through t he fracture defect suggesting edema. ??No discrete orbital hematoma. ? ?No ocular hematoma or definite optic nerve compression. ??Optic canals appear patent and otherwise unremarkable. ??Probable soft tissue swe lling and subcutaneous fat stranding involving the anterior facet s uperficial to the frontal sinuses as well as the superior periorbi juanito regions suggesting potential subcutaneous contusion and pot ential mild right-sided palpebral contusion. ??Probable inferior medial subpalpebral focus of air, otherwise no evidence for orbital e mphysematous. ??No air-fluid levels within the paranasal sinuses. ??P ossible nondisplaced vs. minimally displaced fracture of the lami na papyracea on the right, coronal reconstruction images 27 through 30. ??A small amount of adjacent mucosal thickening, fluid, or p otential blood products within the right middle and right office clinician ior ethmoid air cells. ??Left orbit unremarkable. ??Remainder of paran scar sinuses are unremarkable. Possible nondisplaced nasal bone fractur e on the right anteriorly. Visualized mastoid air cells and opacifi ed possible cerumen within the external auditory canals bilaterally . ??Slight asymmetric soft tissue swelling in the region of the pal atine tonsils. ??Recommend direct visualization. ??Optic chiasm, se lla, optic tracts, and visualized brain parenchyma are otherwis e unremarkable. Procedure Note Juaquin More MD - 04/12/2016Formattin g of this note might be different from the original. CLINICAL HISTORY: Trauma, diplopia. TECHNICAL DATA: 1 mm axial images throug h the orbits without contrast. Coronal reconstructions obtain ed. FINDINGS: No prior comparisons. There is an osseous defect involving the inferomedial floor of the right orbits with a small probable adjacent comminuted fracture fr agments most consistent with a blowout type fracture. There is hernia tion of orbital fat into the superior anteromedial aspects of the rig ht maxillary antrum best demonstrated on axial images 121 through 135 and coronal reconstructed images 27 through 33. The oblique transverse dimension of the osseous defect measuring 8 mm. Th e oblique AP dimension of the osseous blowout fracture defect mandi ures 9 mm. There is slightly protrusion of the inferior aspect of the inferior rectus muscle into the osseous defect best demonstrated on coronal reconstruction images 28 and 29. Question clinical symptomatol ogy of inferior rectus dysfunction as an etiology for diplopia. There is mild stranding of the conal and extraconal inferomedial or bital fat as well as the orbital fat that has herniated through t he fracture defect suggesting edema. No discrete orbital hematoma. No ocular hematoma or definite optic nerve compression. Optic canals ap pear patent and otherwise unremarkable. Probable soft tissue swell ing and subcutaneous fat stranding involving the anterior facet s uperficial to the frontal sinuses as well as the superior periorbi juanito regions suggesting potential subcutaneous contusion and pot ential mild right-sided palpebral contusion. Probable inferior m edial subpalpebral focus of air, otherwise no evidence for orbital e mphysematous. No air-fluid levels within the paranasal sinuses. Pos sible nondisplaced vs. minimally displaced fracture of the lami na papyracea on the right, coronal reconstruction images 27 through 30. A small amount of adjacent mucosal thickening, fluid, or p otential blood products within the right middle and right office clinician ior ethmoid air cells. Left orbit unremarkable. Remainder of paranas al sinuses are unremarkable. Possible nondisplaced nasal bone fractur e on the right anteriorly. Visualized mastoid air cells and opacifi ed possible cerumen within the external auditory canals bilaterally . Slight asymmetric soft tissue swelling in the region of the pal atine tonsils. Recommend direct visualization. Optic chiasm, sell a, optic tracts, and visualized brain parenchyma are otherwis e unremarkable. IMPRESSION : 1. Comminuted dehiscent blowout type fr acture involving the inferomedial right orbital floor wit h herniation of extraconal orbital fat through the fract ure defect into the superior right maxillary antrum. Slight herniation of the inferior rectus muscle. Question diplopi a related to right inferior rectus dysfunction clinically. 2. Minimal displaced potential fracture of the lamina papyracea on the right with a small amou nt of fluid and/or blood products within the adjacent right middl e and right posterior ethmoid air cells. The medial aspect of the right medial rectus muscle abuts and potentially extends int o the fracture site best demonstrated coronal reconstruction imag es 26 through 28. Also question any clinical symptomatolog y of right medial rectus dysfunction. 3. Facial and preseptal periorbital sof t tissue swelling. No definite evidence for ocular or orbit al hematoma. No evidence for optic nerve compression. 4. Asymmetric prominence of the palatin e tonsils bilaterally. Recommend direct visualizat ion. tss/[id number] Dictating JUAQUIN GUTIERRES RADIOLOGIST Micky Alvarez MD RAD CT documented in this encounter Visit Diagnoses Not on filedocumented in this encounter
--- OUTSIDE RECORDS SUMMARY | 2021-11-05 19:27 | XMS_ITS | Encounter Summary ---
:1975 Author Organization [facility] Address [address] [place] [address] Care Team Providers Name Role Phone Chencho Arauz PA-C Primary Care Provider Unavailable Encounter Details Date Type Department Care Team Description 01/10/2009 PN Conversion Only MEDICAL TECHNOLOGIST BLOOD BANK [address] [place] [address] Social History Tobacco Use Types Packs/Day Years Used Date Smoking Tobacco: Never Assessed Sex Assigned at Date Recorded Not on file documented as of this encounter Plan of Treatment Not on filedocumented as of this encounter Visit Diagnoses Not on filedocumented in this encounter Care Teams Rope Coiling Machine Operator Relationship Specialty Start Date End Date Chencho Arauz PA-C PCP - General 05/14/1012/16/11 documented as of this encounter
--- OUTSIDE RECORDS SUMMARY | 2021-11-05 19:27 | XMS_ITS | Encounter Summary ---
:1975 Author Organization [facility] Address [address] [place] [address] Care Team Providers Name Role Phone Chencho Arauz PA-C Primary Care Provider Unavailable Encounter Details Date Type Department Care Team Description 06/06/2006 Office Visit [facility] Micky Pastrana MD [address] [facility] [address] [facility] [place], [place] [address] [place] [address] [phone] (Wo rk) Social History Tobacco Use Types Packs/Day Years Used Date Smoking Tobacco: Never Assessed Sex Assigned at Date Recorded Not on file documented as of this encounter Progress Notes Micky Pastrana MD - 06/06/2006 12:01 AM CDT Progress Notes signed by Micky Pastrana MD at 06/12/06 1733 Author: Micky Pastrana MD Service: (none) Author Type: Physician Filed: 06/01/10 1901 Note Time: 06/06/06 0001 Status: Signed Automotive Service Cashier: Micky Pastrana MD (Physician) NAME: JOSE LUIS SHIPLEY MR#: [id number] ACCT: [id number] VISIT: [id number] DICTATING CLINICIAN: MICKY PASTRANA MD JOB: [id number] LOC: 3711 CLINIC PROGRESS NOTE DATE OF VISIT: 06/06/2006 SUBJECTIVE: CHIEF COMPLAINT: Followup for right shoulder arthroscopic AC joint stabilization. DATE OF SURGERY: 04/29/06. HISTORY OF PRESENT ILLNESS: Jose Luis Shipley is a 31-year-old gentleman who sustained a grade 3 acute AC separation of the right shoulder, status post arthroscopic reduction of the AC separation. He reports that he has been doing well. He has got some stiffness in his arm, but he is otherwise doing quite well. He is off of all narcotic pain medications. OBJECTIVE: Physical exam shows incisions are clean, dry, and intact. No evidence of cellulitis or infection. Range of motion: Forward flexion of the shoulder is approximately 150 on the right, External rotation is approximately 45, and internal rotation is the level of L1. Contralateral extremity shows 180, 75, and T10. Strength exam is 5/5 throughout. RADIOLOGY: Right shoulder AP view. Indications: Postoperative evaluation. Interpretation: AP view of the right shoulder shows tightrope hardware in good position. No evidence of lucency or backing out of any of the hardware. ASSESSMENT: Status post arthroscopic AC separation reduction and fixation, doing well, with postoperative stiffness. PLAN: Send him to physical therapy now. Told him to discontinue use of his sling. He will come back and see me in approximately 1 month's time for clinical recheck. MRW:[id number] C: 06/10/06 18:32 DOCUMENT: [id number] documented in this encounter Plan of Treatment Not on filedocumented as of this encounter Procedures Procedure Name Priority Date/Time Associated Diagnosis Comme nts XR SHOULDER RT 1 Routine 06/06/2006 3:42 PM Resul ts for this VIEW CDT procedure are i n the results section. documented in this encounter Results XR Shoulder Rt 1 View (06/06/2006 3:42 PM CDT) Anatomical Region Laterality Modality Upper Extremity, Shoulder Other Specimen (Source) Anatomical Location Collection Method / Collectio n Time Received Time / Laterality Volume Narrative 06/06/2006 3:42 PM CDT RIGHT SHOULDER AP VIEW: INDICATION: ??Postoperative evaluation. INTERPRETATION: ??AP view of the right cam kapadia shows tightrope hardware in good position. No evidence o f lucency or backing out of any of the hardware. Dictating MICKY GUPTA MD Procedure Note Micky Pastrana MD - 04/18/2016Formatt ing of this note might be different from the original. RIGHT SHOULDER AP VIEW: INDICATION: Postoperative evaluation. INTERPRETATION: AP view of the right mai ulder shows tightrope hardware in good position. No evidence o f lucency or backing out of any of the hardware. Dictating MD PASTRANA, MICKY Glass MD Micky PATEL GD documented in this encounter Visit Diagnoses Not on filedocumented in this encounter Care Teams Supervisor Mail Carriers Relationship Specialty Start Date End Date Chencho Arauz PA-C PCP - General 05/14/1012/16/11 documented as of this encounter
--- OUTSIDE RECORDS SUMMARY | 2021-11-05 19:27 | XMS_ITS | Encounter Summary ---
:1975 Author Organization [facility] Address [address], [place] [address] Care Team Providers Name Role Phone Chencho Arauz PA-C Primary Care Provider Unavailable Encounter Details Date Type Department Care Team Description 08/07/2010 PN Conversion Only MACHINE II COREMAKER [address] Chencho Arauz, [address] [place] [address] [address] [place] [address] Social History Tobacco Use Types Packs/Day Years Used Date Smoking Tobacco: Never Assessed Sex Assigned at Date Recorded Not on file documented as of this encounter Plan of Treatment Not on filedocumented as of this encounter Procedures Procedure Name Priority Date/Time Associated Comments Diagnosis GLUCOSE, WHOLE BLOOD Routine 08/07/2010 10:33 Res ults for this POCT AM CDT procedure are i n the results section. TISSUE TRANSGLUTAMINASE Routine 08/07/2010 10:33 Results for this AB IGA AM CDT procedure are i n the results section. LIPID PANEL AND DIRECT Routine 08/07/2010 10:33 R esults for this LDL(IF NEEDED) AM CDT procedure are in the results section. documented in this encounter Results TISSUE TRANSGLUTAMINASE AB IGA (08/07/2010 10:33 AM CDT) [facility] Method Time Signature Tissue 4 0 - 19 HP CONVERSION Transglutaminase Units Antibody, IgA Comment: INTERPRETIVE DATA: Tissue Transglutamina se Antibody (tTG), IgA 19 Units or less ........... Negative 20-30 Units ................ Weak Positi ve 31 Units or greater ........ Moderate to Strong Positive The presence of tissue transglutaminase (tTG) IgA antibody may suggest the possibility of certain g luten-sensitive enteropathies such as celiac disease and dermatitis herpetiformis. Performed at [email or web address] [address] [place] [address] 84 8 Specimen (Source) Anatomical Collection Method Collection Time Re ceived Time Location / / Volume Laterality 08/07/2010 10:33 AM CDT Chencho Arauz PA-C LAB_1 Performing Organization Address City/[facility] Code Phon e Number HP CONVERSION Lipid Panel and Direct LDL(If Needed) (08/07/2010 10:33 AM CDT) Patholo gist Method Time Signature Cholesterol 173 0 - 200 HP CONVERSION mg/dL Triglycerides 63 0 - 149 HP CONVERSION mg/dL HDL Cholesterol 54 >39 mg/dL HP CONVERSION Cholesterol/HDL 3.2 No normal HP CONVERSION Ratio Screen range LDL Calculated 106 19 - 130 HP CONVERSION mg/dL Length Of Fast 12 No normal HP CONVERSION range Specimen (Source) Anatomical Collection Method Collection Time Re ceived Time Location / / Volume Laterality 08/07/2010 10:33 AM CDT Chencho Arauz PA-C LAB_1 Performing Organization Address City/State/ZIP Code Phon e Number HP CONVERSION BEDSIDE GLUCOSE MONITOR (08/07/2010 10:33 AM CDT) P athologist Signature Bedside Blood 86 mg/dL HP CONVERSION Glucose Test Specimen (Source) Anatomical Collection Method Collection Time Re ceived Time Location / / Volume Laterality 08/07/2010 10:33 AM CDT Chencho Arauz PA-C LAB_1 Performing Organization Address City/State/ZIP Code Phon e Number HP CONVERSION documented in this encounter Visit Diagnoses Not on filedocumented in this encounter Care Teams Children Librarian Relationship Specialty Start Date End Date Chencho Arauz PA-C PCP - General 05/14/1012/16/11 documented as of this encounter
--- OUTSIDE RECORDS SUMMARY | 2021-11-05 19:27 | XMS_ITS | Encounter Summary ---
:1975 Author Organization [facility] Address [address], [place] [address] Care Team Providers Name Role Phone Chencho Arauz PA-C Primary Care Provider Unavailable Encounter Details Date Type Department Care Team Description 08/07/2007 PN Conversion Only COMMISSARY HELPER [address] Michael Ayala, [address] MD VD [address] [place], [place] [address] [address] [place] [address] (Wo rk) Social History Tobacco Use Types Packs/Day Years Used Date Smoking Tobacco: Never Assessed Sex Assigned at Date Recorded Not on file documented as of this encounter Plan of Treatment Not on filedocumented as of this encounter Procedures Procedure Name Priority Date/Time Associated Diagnosis Comme nts GLUCOSE Routine 08/07/2007 8:45 AM Results f or this CDT procedure are i n the results section. LIPID PANEL AND Routine 08/07/2007 8:45 AM Result s for this DIRECT LDL(IF CDT procedure are in NEEDED) the results section. documented in this encounter Results Glucose (08/07/2007 8:45 AM CDT) athologist Signature Length Of Fast 12.0 Hours HP CONVERSION Lab Glucose 97 60 - 100 HP CONVERSION mg/dL Specimen (Source) Anatomical Collection Method Collection Time Re ceived Time Location / / Volume Laterality 08/07/2007 8:45 AM CDT Michael Ayala MD LAB_1 Performing Organization Address City/State/ZIP Code Phon e Number HP CONVERSION Lipid Panel and Direct LDL(If Needed) (08/07/2007 8:45 AM CDT) [facility] gist Method Time Signature Length Of Fast 12.0 Hours HP CONVERSION Cholesterol/HDL 4.2 No normal HP CONVERSION Ratio Screen range Cholesterol 181 <200 mg/dL HP CONVERSION HDL Cholesterol 43 >40 mg/dL HP CONVERSION Triglycerides 74 0 - 149 HP CONVERSION mg/dL LDL Calculated 123 0 - 130 HP CONVERSION mg/dL Comment: Specimen (Source) Anatomical Collection Method Collection Time Re ceived Time Location / / Volume Laterality 08/07/2007 8:45 AM CDT Michael Ayala MD LAB_1 Performing Organization Address City/State/ZIP Code Phon e Number HP CONVERSION documented in this encounter Visit Diagnoses Not on filedocumented in this encounter Care Teams Byproducts Supervisor Relationship Specialty Start Date End Date Chencho Arauz PA-C PCP - General 05/14/1012/16/11 documented as of this encounter
--- OUTSIDE RECORDS SUMMARY | 2021-11-05 19:27 | XMS_ITS | Encounter Summary ---
:1975 Author Organization [facility] Address [address] [address] Care Team Providers Name Role Phone Chencho Arauz PA-C Primary Care Provider Unavailable Encounter Details Date Type Department Care Team Description 08/07/2010 Office Visit [facility] [address] [place] [address] Chencho Arauz PA-C Medicine [address] [facility] [address] [place] [address] [place] [address] Social History Tobacco Use Types Packs/Day Years Used Date Smoking Tobacco: Never Assessed Sex Assigned at Date Recorded Not on file documented as of this encounter Progress Notes Chencho Arauz PA-C - 08/07/2010 12:01 AM CDT Preventive Exam Chief Complaint Patient presents for a routine preventive physical exam. Complaining of some right foot pain on and off no intra-or History of present illness Past Medical History: There are no major adult illnesses, childhood illnesses, traumas, or surgeries. Most recent physical examination screening was: Surgical History: Repair of right shoulder separation Adverse Drug Reactions: Pt's Adverse Drug Reactions [...] No hypertension. No hyperlipidemia. Positive for hypothyroidism in the mother No testicular or prostate cancer. 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 The patient performs monthly genital exams. Calcium intake is adequate. Colonoscopy or sigmoidoscopy done: None indicated Exercise is adequate. Recent lipid screen [...] does not appear depressed or anxious. ASSESSMENT: 1. Metatarsalgia without evidence of age her problem Routine preventive exam. Healthy male. Immunizations reviewed and updated in [facility] of [facility]. Pt. is up to date. See Problem List on Patient Health Profile PLAN: Follow-up in 1 year, sooner PRN any concerns. Patient education about pertinent positives and negatives in this physical examination. Prescriptions provided, see OP Med list on Health Profile in [facility]. Labs: Cholesterol blood sugar and at his request tissue transglutaminase We will mail lab results to patient, if any are abnormal and worrisome I will speak to the patient personally. Preventive health counseling provided: This patient was done using voice recognition software and may contain typographical errors *SH~DNS~PEM documented in this encounter Plan of Treatment Not on filedocumented as of this encounter Visit Diagnoses Not on filedocumented in this encounter Care Teams Reinforced Concrete Inspector Relationship Specialty Start Date End Date Chencho Arauz PA-C PCP - General 05/14/1012/16/11 documented as of this encounter
--- OUTSIDE RECORDS SUMMARY | 2021-11-05 19:27 | XMS_ITS | Encounter Summary ---
:1975 Author Organization [facility] Address [address], [place] [address] Care Team Providers Name Role Phone Chencho Arauz PA-C Primary Care Provider Unavailable Encounter Details Date Type Department Care Team Description 06/19/2006 Therapy [facility] Dyan Bill [address] [facility] [place], [place] [address] Social History Tobacco Use Types Packs/Day Years Used Date Smoking Tobacco: Never Assessed Sex Assigned at Date Recorded Not on file documented as of this encounter Plan of Treatment Not on filedocumented as of this encounter Visit Diagnoses Not on filedocumented in this encounter Care Teams Television Engineer Relationship Specialty Start Date End Date Chencho Arauz PA-C PCP - General 05/14/1012/16/11 documented as of this encounter
--- OUTSIDE RECORDS SUMMARY | 2021-11-05 19:28 | XMS_ITS | Encounter Summary ---
:1975 Author Organization [facility] Address [address] [place] [address] Care Team Providers Name Role Phone Chencho Arauz PA-C Primary Care Provider Unavailable Encounter Details Date Type Department Care Team Description 08/08/2004 PN Conversion Only PREPRESS STRIPPER [address] [place] [address] Social History Tobacco Use Types Packs/Day Years Used Date Smoking Tobacco: Never Assessed Sex Assigned at Date Recorded Not on file documented as of this encounter Plan of Treatment Not on filedocumented as of this encounter Visit Diagnoses Not on filedocumented in this encounter Care Teams Long Term Relationship Specialty Start Date End Date Chencho Arauz PA-C PCP - General 05/14/1012/16/11 documented as of this encounter
--- OUTSIDE RECORDS SUMMARY | 2021-11-05 19:28 | XMS_ITS | Encounter Summary ---
:1975 Author [facility] Address [address], [place] [address] Care Team Providers Name Role Phone Chencho Arauz PA-C Primary Care Provider Unavailable Encounter Details Date Type Department Care Team Description 04/28/2006 Office Visit [facility] [address] [place], [place] [address]willa booth, Edwardo Santos MD [facility] [address] [facility] [address] [place] [phone] (Wo rk) Social History Tobacco Use Types Packs/Day Years Used Date Smoking Tobacco: Never Assessed Sex Assigned at Date Recorded Not on file documented as of this encounter Last Filed Vital Signs Vital Sign Reading Time Taken Comments Blood Pressure 114/68 04/28/2006 3:07 PM CDT Pulse 84 04/28/2006 3:07 PM CDT Temperature - - Respiratory Rate 16 04/28/2006 3:07 PM CDT Oxygen Saturation - - Inhaled Oxygen Concentration - - Weight 81.6 kg (179 lb 15.7 oz) 04/28/2006 3:07 PM C: 8 1.6kg CDT Height 180.3 cm (5' 11) 04/28/2006 3:07 PM C: 180.3cm CDT Body Mass Index 25.1 04/28/2006 3:07 PM CDT documented in this encounter Progress Notes Edwardo Michele MD - 04/28/2006 12:01 AM CDT Progress Notes signed by Edwardo Michele MD at 04/28/06 9253 Author: Edwardo Michele MD Service: (none) Author Type: (none) Filed: 06/01/10 1810 Note Time: 04/28/06 0001 Status: Signed Merchandise Director: Edwardo Michele MD (Physician) Preoperative exam Date of surgery: April 29, 2006 Planned procedure: Acromioclavicular repair Surgeon: Dr. Carvajal Please see written preoperative exam form. There are no contraindications to surgery. Labs: None EKG: None *SH~DNS~PREOP documented in this encounter Plan of Treatment Not on filedocumented as of this encounter Visit Diagnoses Not on filedocumented in this encounter Care Teams Tree Faller Relationship Specialty Start Date End Date Chencho Arauz PA-C PCP - General 05/14/1012/16/11 documented as of this encounter
--- OUTSIDE RECORDS SUMMARY | 2021-11-05 19:28 | XMS_ITS | Encounter Summary ---
:1975 Author Organization [facility] Address [address] [place] [address] Care Team Providers Name Role Phone Chencho Arauz PA-C Primary Care Provider Unavailable Encounter Details Date Type Department Care Team Description 03/20/2004 Office Visit [facility] [address] Estuardo Hodge [facility] [address] [facility] [address] [address] [place] [address] [place] [address] [phone] Social History Tobacco Use Types Packs/Day Years Used Date Smoking Tobacco: Never Assessed Sex Assigned at Date Recorded Not on file documented as of this encounter Progress Notes Chaka Hodge MBBS - 03/20/2004 12:01 AM CST Progress Notes signed by Chaka Hodge MD at 06/12/04 1856 Author: Chaka Hodge MD Service: (none) Author Type: Physician Filed: 06/01/10 0304 Note Time: 03/20/04 0001 Status: Signed Cco & President: Chaka Hodge MD (Physician) NAME: JOSE LUIS SHIPLEY MR: [id number] ACCT: [id number] VISIT: [id number] DICTATING CLINICIAN: CHAKA HODGE MD JOB: [id number] CLINIC PROGRESS NOTE DATE OF VISIT: 03/20/2004 SUBJECTIVE: Mr. Shipley is a 29-year-old who presents to urgent care, complaining of abdominal pain off and on for the last 2 weeks after eating. Over the last couple of days, has been cramping pain, otherwise it is a dull aching pain, which lasts a few minutes to a couple of hours at a time. No associated nausea, vomiting, diarrhea, constipation, dysuria, frequency, or urgency of urination, heartburn, melena, hematochezia, hemoptysis, hematemesis. The symptoms seem to be more with dairy products. No new back pain associated with this. The pain does not radiate anywhere. He has noticed some urinary frequency a couple of days ago. Denies any fevers, chills, sweats. No upper respiratory symptoms. The rest of the complete review of systems is negative. PAST MEDICAL HISTORY: Negative. MEDICATIONS: None. ADR/ALLERGIES: NKDA. HABITS: Denies smoking or drug use. Alcohol use is occasional. Caffeine use is occasional as well. TRAVEL HISTORY: To [place] on 02/11/2004 and recently, a week ago, to [place], [place]. The second trip was after his symptoms had started already. The patient currently has pain, which he rates about 3 to 4 on a 10-point scale. OBJECTIVE: VS: BP: 110/76. T: 98.4. P: 50. R: 12. NAD. The patient is nontoxic. HEENT: NCAT. PERRLA. EOMI. Fundi normal. No icterus. Mucous membranes pink and moist. Nares, oropharynx, TMs clear. NECK: Supple, without adenopathy. LUNGS: CTAB. BACK: No CVAT. ABDOMEN: Bowel sounds active. No organomegaly or masses. URGENT CARE COURSE: He was given a dose of GI cocktail with good resolution of symptoms for a few minutes. CBC, electrolytes, ALT, AST, amylase, alkaline phosphatase, lipase are all within normal limits. UA is negative. ASSESSMENT: Abdominal pain, gastritis. PLAN: 1. Lifestyle modifications were discussed. 2. Zantac 150 mg p.o. b.i.d. 3. Follow up with PCP in 2 to 3 weeks' time for recheck. Return to clinic or go to ER for any severe worsening of symptoms. GKP:[id number] C: 03/21/04 22:14 DOCUMENT: [id number] documented in this encounter Plan of Treatment Not on filedocumented as of this encounter Visit Diagnoses Not on filedocumented in this encounter Care Teams Technology Specialist Relationship Specialty Start Date End Date Chencho Arauz PA-C PCP - General 05/14/1012/16/11 documented as of this encounter
--- OUTSIDE RECORDS SUMMARY | 2021-11-05 19:28 | XMS_ITS | Encounter Summary ---
:1975 Author [facility] Address [address], [place] [address] Care Team Providers Name Role Phone Chencho Arauz PA-C Primary Care Provider Unavailable Encounter Details Date Type Department Care Team Description 08/30/2002 PN Conversion Only [facility] [address] Michele, Family Medicine MD [address] [facility] [address] [facility] [address] [place] [phone] (Wo rk) Social History Tobacco Use Types Packs/Day Years Used Date Smoking Tobacco: Never Assessed Sex Assigned at Date Recorded Not on file documented as of this encounter Progress Notes Edwardo Michele MD - 08/30/2002 12:01 AM CDT Progress Notes signed by Edwardo Michele MD at 09/09/02 1727 Author: Edwardo Michele MD Service: (none) Author Type: (none) Filed: 05/31/10 1516 Note Time: 08/30/02 0001 Status: Signed Precision Assembler: Edwardo Michele MD (Physician) NAME: JOSE LUIS SHIPLEY MR: [id number] ACCT: [id number] VISIT: [id number] DICTATING CLINICIAN: EDWARDO MICHELE MD JOB: [id number] CLINIC PROGRESS NOTE DATE OF VISIT: 08/30/2002 SUBJECTIVE: Chief Complaint: Patient is here for a physical exam. He is a 27-year-old male with an unremarkable past medical history. MEDICATIONS: He is on no medications. ADR/ALLERGIES: NO KNOWN DRUG ALLERGIES. The patient is currently single. Lives with two roommates. 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 The patient is very active as far as exercise. He is a nonsmoker. Rarely drinks alcohol. FAMILY HISTORY: Both parents are alive. His mother has a history of hypothyroidism. Otherwise, there is no history of early coronary artery disease or cancer. He has two siblings, both healthy. His review of systems module is reviewed. The patient does have musculoskeletal complaints of ankle, wrist, knee pain, some occasional bursitis, all related to his tennis activity. He uses ibuprofen periodically. Otherwise, complete review of systems is negative. OBJECTIVE: VS: PB: 124/86. P: 60. Ht: 5 ft 11 in. Wt: 197. He is a healthy-appearing 27-year-old. Oral cavity and oropharynx is clear. NECK: Supple, nontender, full range of motion. Carotid pulses 2+, no bruits. Thyroid not enlarged, no masses. LUNGS: Clear to auscultation. HEART: Regular rate and rhythm. No murmur. ABDOMEN: Soft, nontender, nondistended, no hepatosplenomegaly. EXTREMITIES: No clubbing, cyanosis, or edema. Testicles descended bilaterally. No masses. No inguinal hernias. No lesions. ASSESSMENT: Health maintenance. PLAN: Patient to have a tetanus immunization update today and as far as lab testing, will check a CBC. Patient would like systemic testing for arthritis. Will check a sed rate. Also check a rheumatoid arthritis panel, although I suspect it will be normal; fasting glucose and a fasting lipid panel. Patient will return here in three to five years or sooner p.r.n. TT: CT: [id number] C: 09/09/02 09:50 DOCUMENT: [id number] Gigi Philippe MD - 01/14/2001 12:01 AM CST Progress Notes signed by Gigi Philippe MD at 07/16/01 1123 Author: Gigi Philippe MD Service: (none) Author Type: Physician Filed: 05/31/10 0241 Note Time: 01/14/012016 Status: Signed Precision Assembler: Gigi Philippe MD (Physician) IMPRESSION: Suture removal. SUBJECTIVE: Is a 25-year-old male that returns to [facility] for suture removal. HPI: He had excision of a nevus of his left posterior upper thigh. The wound is healing well. MEDS: None. ADR/ALLERGIES: NONE. OBJECTIVE: BP: 110/70. Wt: 179. ASSESSMENT: Suture removal. PLAN: The wound looks good. Sutures were removed. Informed all his lab work; was quite benign. Recheck p.r.nSakina KIESHA:[id number] C: DOCUMENT: [id number] [facility] - 01/12/2001 12:01 AM CST Phone Note signed by at 01/12/01 5420 Author: Maryellen Conversion Service: (none) Author Type: (none) Filed: 05/31/10 0237 Note Time: 01/12/012016 Status: Signed Precision Assembler: Imr Conversion SUBJECTIVE: ALLERGIES/SENSITIVITIES... * HOME PHONE:[phone] * CURRENT MEDICATIONS... PERTINENT PAST HISTORY... ASSESSMENT: DISPOSITION: NO DISPOSITION GIVEN PLAN: [facility] COMMENTS... PER DR PHILIPPE PATIENT WAS LEFT A MESSAGE NOTIFYING PATIENT THAT HIS BI OPSY WAS NORMAL.(BENIGN). CALL BY NIELS AMES 01/12/2001 02:53PM ADDENDUM: IC SPEAKING TEACHER Gigi Philippe MD - 01/05/2001 12:01 AM CST Progress Notes signed by at 04/03/022016 Author: Gigi Philippe MD Service: (none) Author Type: Physician Filed: 05/31/10 0228 Note Time: 01/05/012016 Status: Signed Precision Assembler: Gigi Philippe MD (Physician) IMPRESSION: Nevus, left thigh. Bilateral ear ceruminosis. STD concerns. SUBJECTIVE: He is a 25-year-old male who comes to [facility] because of pain in his left ear. He stuck a Q-tip in his left ear about one week ago and it did hurt for a few days. Now the pain is not so bad, it just feels different. It feels plugged and if he sneezes or blows his nose than it bothers him even more. He is also here because of a large nevus in his left upper thigh posteriorly. This has been present for all of his life, but has gotten larger and more bothersome lately. He would like to have it removed. His girlfriend would also like him tested for STDs. MEDICATIONS: None. ADR: NONE. TOBACCO: None. OBJECTIVE: BP: 128/70. P: 95.4. Wt: 178. He appears well and in no acute distress. Examination of both ear canals shows a marked amount of hard cerumen in each ear canal. Both were curetted without difficulty. The TMs were very slightly inflamed, but no evidence of infection. There was very slight bleeding from an abrasion on the left ear canal. There is a large 1.2-cm nevus of his left posterior thigh. Under local anesthesia using 1% Xylocaine with epinephrine 2 cc, this was excised using a curved iris scissors. The wound was closed with two 4-0 Ethilon sutures. Bacitracin and Band-Aid placed. ASSESSMENT: Nevus, left thigh. Bilateral ear ceruminosis. STD concerns. PLAN: Suture removal in 10 days. RPR, HIV, and ALT were drawn. KIESHA:[id number] C: DOCUMENT: [id number] IC SPEAKING TEACHER Gale Corral MD - 09/30/2000 12:01 AM CDT Progress Notes signed by Gale Corral MD at 07/25/01 9825 Author: Gale Corral MD Service: (none) Author Type: Physician Filed: 05/31/10 0029 Note Time: 09/30/002016 Status: Signed Precision Assembler: Gale Corral MD (Physician) IMPRESSION: Bilateral patellar tendonitis and some diffuse joint pain, probable overuse. Posture related neck discomfort. SUBJECTIVE: This 25-year-old male was here for evaluation of bilateral knee pain. 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 He has had intermittent bilateral knee pain since college, but recently has had more pain in the right than the left. He recalls no specific injury. He has had no swelling, no redness, warmth, or locking. The pain is aggravated by running and jumping, that type of activities primarily, and symptoms get better by stretching and using Advil. He also has had some intermittent pain in his neck, shoulders, wrist, and ankles, but no swelling in these areas. This has been going since he was age 11. He has had this evaluated before and has been given some stretching exercises. His past medical history otherwise denies any chronic health problems. He does have a history of some ankle sprains bilaterally. His review of systems was entirely negative. Specifically, he denies any fever, chills, and weight loss. ENT, cardiac, respiratory, GI, and negative. He does not have any significant low back pain. The rest of his complete review was negative. Family history negative for rheumatoid arthritis and autoimmune diseases. Grandparents with heart disease. The rest of his complete review was negative. 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 He does not smoke. Drinks alcohol socially. OBJECTIVE: He is a very pleasant, healthy-appearing young man. On stance, has bilateral pes planus, otherwise, good alignment of his lower extremities. He has full range of motion at the neck. He does have a forward head, rolled forward shoulder posture and full range of motion of the shoulders, elbows, wrists. He is tender over the upper trapezius bilaterally. No synovitis at the wrist or MCP joints. The hip exam reveals full range of motion. His knee exam is essentially the same, both knees, where he is tender over the patellar tendons, primarily some mild tenderness underneath the medial patellar facet and mild discomfort with patellar inhibition test. There is no laxity on varus or valgus stress. Juancho's normal bilaterally. He does have quite tight hamstrings and quadriceps. No effusion of either knee. Normal patellar mobility. Ankle range of motion is normal. Good strength to ankle dorsiflexion and plantar flexion. Negative anterior drawer bilaterally. Some tightness of the heel cords. X-rays of the knees are normal. ASSESSMENT: Bilateral patellar tendonitis and some diffuse joint pain, probable overuse. Posture related neck discomfort. PLAN: I have recommended a stretching and strengthening program for his quadriceps, hamstrings, and ankle dorsiflexors. Will refer to physical therapy for this. Also he can try a Cho-Pat strap for his patellar tendonitis. We will check a rheumatoid factor and sedimentation rate. He will follow up if he has no significant improvement in symptoms with his rehab program after about six to eight weeks. For the upper neck, was suggested working on posture, range of motion, and stretching. RK:[id number] C: DOCUMENT: [id number] documented in this encounter Plan of Treatment Not on filedocumented as of this encounter Procedures Procedure Name Priority Date/Time Associated Comments Diagnosis HIV ANTIBODY Routine 01/05/2001 3:19 PM Results f or this PUBLIC SPEAKING TEACHER procedure are i n the results section. RC-LAB RPR (VDRL) Routine 01/05/2001 3:19 PM Resu lts for this PUBLIC SPEAKING TEACHER procedure are i n the results section. ALT (SGPT) Routine 01/05/2001 3:19 PM Results f or this PUBLIC SPEAKING TEACHER procedure are i n the results section. SURGICAL PATH, PARK Routine 01/05/2001 2:26 PM Re sults for this NICOLLET PUBLIC SPEAKING TEACHER procedure are i n the results section. RHEUMATOID FACTOR, Routine 09/30/2000 4:25 PM Res ults for this QUANT CDT procedure are i n the results section. ESR Routine 09/30/2000 4:25 PM Results f or this CDT procedure are i n the results section. XR KNEE AND PATELLA Routine 09/30/2000 3:47 PM Re sults for this CDT procedure are i n the results section. documented in this encounter Results ALT (SGPT) (01/05/2001 3:19 PM PUBLIC SPEAKING TEACHER) [facility] gist Method Time [facility] Alanine 48 0 - 65 HP CONVERSION Aminotransferase U/L Specimen (Source) Anatomical Collection Method Collection Time Re ceived Time Location / / Volume Laterality 01/05/2001 3:19 PM PUBLIC SPEAKING TEACHER Gigi Philippe MD LAB_1 Performing Organization Address City/[facility]/ZIP Code Phon e Number HP CONVERSION HIV Antibody (01/05/2001 3:19 PM PUBLIC SPEAKING TEACHER) athologist Signature HIV 1/HIV 2 Non Reac Non Reac HP CONVERSION Specimen (Source) Anatomical Collection Method Collection Time Re ceived Time Location / / Volume Laterality 01/05/2001 3:19 PM PUBLIC SPEAKING TEACHER Gigi Philippe MD LAB_1 Performing Organization Address City/[facility]/ZIP Code Phon e Number HP CONVERSION Rc-Lab Rpr (Vdrl) (01/05/2001 3:19 PM PUBLIC SPEAKING TEACHER) athologist Signature RPR Non Reac Non Reac HP CONVERSION Specimen (Source) Anatomical Collection Method Collection Time Re ceived Time Location / / Volume Laterality 01/05/2001 3:19 PM PUBLIC SPEAKING TEACHER Gigi Philippe MD LAB_1 Performing Organization Address City/[facility]/ZIP Code Phon e Number HP CONVERSION Pathology Report (01/05/2001 2:26 PM PUBLIC SPEAKING TEACHER) [facility] Method Time [facility] Surgical SEE TEXT No normal HP CONVERSION Pathology range Comment: Patient: JOSE LUIS SHIPLEY ?S URGICAL PATHOLOGY REPORT Pathology # ??[id number] ?Date Obtained: ? Date Received: [id number] DIAGNOSIS: ?Skin, left upper thigh, excisional biopsy: ?1. ??Benign pigmented compound madelyn anocytic nevus, congenital type. ?2. ??No atypical or neoplastic fea tures. ?Roger Emery M.D. ?(electronic signature) DAG/DAG/dke Date of Report: 01/07/01 Pathology # ??[id number] ?Date Obtained: ? Date Received: ORGAN/TISSUE SITE: ?Left upper thigh below buttock GROSS DESCRIPTION: ?The specimen consists of a shave b iopsy of a papular skin lesion measuring ?approximately 11 mm in diameter an d 5 mm in thickness. [facility] MICROSCOPIC DESCRIPTION: ?The microscopic examination substa ntiates the diagnosis cited. Specimen (Source) Anatomical Collection Method Collection Time Re ceived Time Location / / Volume Laterality 01/05/2001 2:26 PM PUBLIC SPEAKING TEACHER Gigi Philippe MD LAB_1 Performing Organization Address City/State/ZIP Code Phon e Number HP CONVERSION ESR (09/30/2000 4:25 PM CDT) [facility] gist Method Time Signature Sedimentation Rate 1 0 - 15 HP CONVERSI ON mm/Hr Specimen (Source) Anatomical Collection Method Collection Time Re ceived Time Location / / Volume Laterality 09/30/2000 4:25 PM CDT Gale Corral MD LAB_1 Performing Organization Address City/State/ZIP Code Phon e Number HP CONVERSION Rheumatoid Factor, Quant (09/30/2000 4:25 PM CDT) P athologist Signature Rheumatoid <10 0 - 20 HP CONVERSION Factor IU/mL Specimen (Source) Anatomical Collection Method Collection Time Re ceived Time Location / / Volume Laterality 09/30/2000 4:25 PM CDT Gale Corral MD LAB_1 Performing Organization Address City/State/ZIP Code Phon e Number HP CONVERSION XR Knee And Patella (09/30/2000 3:47 PM CDT) Anatomical Region Laterality Modality Other Specimen (Source) Anatomical Location Collection Method / Collectio n Time Received Time / Laterality Volume Narrative 09/30/2000 3:47 PM CDT CLINICAL DATA: ?PAIN FINDINGS: ?BN1 ?NO RADIOGRAPHIC EVIDENCE OF BONE O R JOINT ABNORMALITY. TECH-ID : ? J TRANS-ID: Procedure Note Nick Gray - 04/18/2016 CLINICAL DATA: PAIN FINDINGS: BN1 NO RADIOGRAPHIC EVIDENCE OF BONE OR XANDER NT ABNORMALITY. TECH-ID : J TRANS-ID: Gale Corral MD RAD GD documented in this encounter Visit Diagnoses Not on filedocumented in this encounter Care Teams Brake Holder Relationship Specialty Start Date End Date Chencho Arauz PA-C PCP - General 05/14/1012/16/11 documented as of this encounter
--- OUTSIDE RECORDS SUMMARY | 2021-11-05 19:28 | XMS_ITS | Encounter Summary ---
:1975 Author Organization [facility] Address [address] [place] [address] Care Team Providers Name Role Phone Chencho Arauz PA-C Primary Care Provider Unavailable Encounter Details Date Type Department Care Team Description 04/29/2006 PN Conversion Only [facility] Micky Carvajal MD [address] [facility] [address] [place] [address] [place], [place] [phone] ( Work) [id number] Social History Tobacco Use Types Packs/Day Years Used Date Smoking Tobacco: Never Assessed Sex Assigned at Date Recorded Not on file documented as of this encounter Plan of Treatment Not on filedocumented as of this encounter Visit Diagnoses Not on filedocumented in this encounter Care Teams Home Health Caregiver Relationship Specialty Start Date End Date Chencho Arauz PA-C PCP - General 05/14/1012/16/11 documented as of this encounter
--- OUTSIDE RECORDS SUMMARY | 2021-11-05 19:28 | XMS_ITS | Encounter Summary ---
:1975 Author Organization [facility] Address [address], [place] [address] Care Team Providers Name Role Phone Unavailable Primary Care Provider Unavailable Encounter Details Date Type Department Care Team Description 12/04/2004 - Emergency [facility] Anamaria Claire MD [address] [place] [address] 12/05/2004 [place] Michael Claire MD [address] [place] [address] [place] [address] Social History Tobacco Use Types Packs/Day Years Used Date Smoking Tobacco: Never Assessed Sex Assigned at Date Recorded Not on file documented as of this encounter Medications at Time of Discharge Medication Sig Dispensed Refills Start Date End Date unknown medication Indications: PN: 0 08/08/2004 08/13/2007 documented as of this encounter ED Notes Michael Claire MD - 12/04/2004 12:01 AM CDT ED Provider Notes signed by Michael Claire MD at 12/07/04 0114 Author: Michael Claire MD Service: (none) Author Type: Physician Filed: 06/01/10 0756 Note Time: 12/05/0445 Status: Signed Livestock Commission Agent: Michael Claire MD (Physician) NAME: JOSE LUIS DAWSON MR: [id number] ACCT: [id number] VISIT: AUTHENTICATING CLINICIAN: MICHAEL CLAIRE MD JOB: [id number] EMERGENCY CENTER REPORT DATE OF SERVICE: 10/25/05. CHIEF COMPLAINT: : 1975. Leg injury. HISTORY OF PRESENT ILLNESS: This patient is a 29-year-old male without significant past medical history who comes to the emergency department because of an injury he suffered to his left leg earlier this evening. He says he was playing softball and apparently laid out to catch a fly ball when he felt something pop in the back of his left leg. He has been able to walk on this leg but feels a lot of spasm and pain where his hamstring is and is concerned he has done something more severe than simply pulled it. He has no other complaint. PAST MEDICAL HISTORY/PAST SURGICAL HISTORY: None. MEDICATIONS: None. ALLERGIES: NONE. SOCIAL HISTORY/FAMILY HISTORY: The patient is here with his . REVIEW OF SYSTEMS: See history of present illness. All other systems are negative. PHYSICAL EXAMINATION: VITAL SIGNS: BP: 140/80. T: 98.0. P: 86. R: 16. GENERAL: This patient is an alert, pleasant 29-year-old male. HEENT: Normocephalic and atraumatic. Oropharynx pink and moist. NECK: Supple. RESPIRATIONS: Nonlabored. ABDOMEN: Nondistended. EXTREMITIES: No obvious deformity. He is able to move his leg, albeit with some hesitation due to pain, but I can go through all ranges of motion. NEUROLOGICAL: GCS is 15. SKIN: Warm and dry. EMERGENCY DEPARTMENT COURSE: I did an x-ray of this patient's pelvis to look for possible avulsion fracture, though suspicion was low, and indeed, the x-ray was negative. I then explained to the patient that the popping sensation was quite likely due to tearing of the muscle fibers and possibly some tendons. As he is able to ambulate on it, the treatment at this time would be pain control and crutches, and if his pain and ambulation were not getting any better in a week, orthopedic follow up. The patient was in agreement with this plan but did state that he would need crutches to help him get around. IMPRESSION: The patient has a hamstring strain. PLAN: Discharge this patient to home. I will prescription him Vicodin and Flexeril for added pain and spasm control. I have also advised Advil 600 mg every 6 hours with food. If he does not improve over the next week, then he should see the [facility] office, and I gave him that number. DIAGNOSIS: Muscle strain. CJJ:[id number] C: 12/05/04 06:13 DOCUMENT: [id number] documented in this encounter Plan of Treatment Not on filedocumented as of this encounter Procedures Procedure Name Priority Date/Time Associated Diagnosis Comme nts XR PELVIS 1-2 VIEWS STAT 12/04/2004 11:18 PM R esults for this CDT procedure are i n the results section. documented in this encounter Results XR Pelvis 1-2 Views (12/04/2004 11:18 PM CDT) Anatomical Region Laterality Modality Pelvis Other Specimen (Source) Anatomical Location Collection Method / Collectio n Time Received Time / Laterality Volume Narrative 12/04/2004 11:18 PM CDT Negative for fracture, dislocation or other osseous abnormality. [id number] Dictating TRACEY GAUTAM RADIOLOGIST Procedure Note Tracey Claire - 04/18/2016Formattin g of this note might be different from the original. Negative for fracture, dislocation or ot her osseous abnormality. [id number] Dictating TRACEY GAUTAM RADIOLOGIST Michael Claire MD RAD GD documented in this encounter Visit Diagnoses Not on filedocumented in this encounter
--- OUTSIDE RECORDS SUMMARY | 2021-11-05 19:28 | XMS_ITS | Encounter Summary ---
:1975 Author Organization [facility] Address [address] [place] [address] Care Team Providers Name Role Phone Chencho Arauz PA-C Primary Care Provider Unavailable Encounter Details Date Type Department Care Team Description 08/10/2004 PN Conversion Only PRE BILLING CLINICIAN [address] [place] [address] Social History Tobacco Use Types Packs/Day Years Used Date Smoking Tobacco: Never Assessed Sex Assigned at Date Recorded Not on file documented as of this encounter Plan of Treatment Not on filedocumented as of this encounter Visit Diagnoses Not on filedocumented in this encounter Care Teams Varnishing Machine Operator Relationship Specialty Start Date End Date Chencho Arauz PA-C PCP - General 05/14/1012/16/11 documented as of this encounter
--- OUTSIDE RECORDS SUMMARY | 2021-11-05 19:28 | XMS_ITS | Encounter Summary ---
:1975 Author Organization [facility] Address [address], [place] [address] Care Team Providers Name Role Phone Chencho Arauz PA-C Primary Care Provider Unavailable Encounter Details Date Type Department Care Team Description 08/30/2002 PN Conversion Only MANAGER DRUG [address] Edwardo Michele, [address] MARTINE[address] [facility] [address] [place], [place] [address] [address] [place] [address] (Wo rk) Social History Tobacco Use Types Packs/Day Years Used Date Smoking Tobacco: Never Assessed Sex Assigned at Date Recorded Not on file documented as of this encounter Plan of Treatment Not on filedocumented as of this encounter Procedures Procedure Name Priority Date/Time Associated Comments Diagnosis GLUCOSE Routine 08/30/2002 10:01 AM Results for this CDT procedure are i n the results section. LIPID PANEL AND Routine 08/30/2002 10:01 AM Resul ts for this DIRECT LDL(IF CDT procedure are in NEEDED) the results section. COMPLETE BLOOD Routine 08/30/2002 10:01 AM Result s for this COUNT-W/DIFF CDT procedure are i n the results section. RHEUMATOID FACTOR, Routine 08/30/2002 10:01 AM Re sults for this QUANT CDT procedure are i n the results section. ESR Routine 08/30/2002 10:01 AM Results for this CDT procedure are i n the results section. documented in this encounter Results Complete Blood Count-W/Diff (08/30/2002 10:01 AM CDT) [facility] Method Time Signature Platelet Count 228 140 - 450 HP CONVERSION k/cmm Differential Auto-Dif No normal HP CONVERSION Verify range Neutrophils 2.6 2.0 - 7.5 HP CONVERSION Absolute Count K/cmm Neutrophil 59.2 50.0 - HP CONVERSION 75.0 % Lymphocyte % 29.7 20.0 - HP CONVERSION 40.0 % Monocyte 9.0 5.0 - 14.0 HP CONVERSION % Eosinophil 1.8 0.0 - 6.0 HP CONVERSION % Basophil % 0.3 0.0 - 2.0 HP CONVERSION % White Blood Cell 4.4 3.8 - 11.0 HP CONVERSIO N Count K/cmm Red Blood Cell 5.21 4.20 - HP CONVERSION Count 5.90 m/cmm Hemoglobin 15.8 13.4 - HP CONVERSION 17.5 gm/dL Hematocrit 45.6 39.0 - HP CONVERSION 51.0 % Mean Corpuscular 87.3 80.0 - HP CONVERSION Volume 100.0 fl Mean Corpuscular 30.2 27.0 - HP CONVERSION Hemoglobin 34.0 pg Mean Corpuscular 34.6 32.0 - HP CONVERSION Hemoglobin Conc 36.5 gm/dL [place] RDW 12.2 11.0 - HP CONVERSION 15.0 % Specimen (Source) Anatomical Collection Method Collection Time Re ceived Time Location / / Volume Laterality 08/30/2002 10:01 AM CDT Edwardo Michele MD LAB_1 Performing Organization Address City/State/ZIP Code Phon e Number HP CONVERSION Glucose (08/30/2002 10:01 AM CDT) P athologist Signature Length Of Fast 12.0 Hours HP CONVERSION Lab Glucose 89 60 - 109 HP CONVERSION mg/dL Specimen (Source) Anatomical Collection Method Collection Time Re ceived Time Location / / Volume Laterality 08/30/2002 10:01 AM CDT Edwardo Michele MD LAB_1 Performing Organization Address City/State/ZIP Code Phon e Number HP CONVERSION (ABNORMAL) Lipid Panel and Direct LDL(If Needed) (08/30/2002 10:01 AM CDT) [facility] Method Time Signature Length Of Fast 12.0 Hours HP CONVERSION Cholesterol/HDL 5.3 No normal HP CONVERSION Ratio Screen range Cholesterol 226 (H) 125 - 199 HP CONVERSION mg/dL HDL Cholesterol 43 40 - 60 HP CONVERSION mg/dL Triglycerides 163 0 - 199 HP CONVERSION mg/dL LDL Calculated 150 (H) 66 - 129 HP CONVERSION mg/dL Comment: Specimen (Source) Anatomical Collection Method Collection Time Re ceived Time Location / / Volume Laterality 08/30/2002 10:01 AM CDT Edwardo Michele MD LAB_1 Performing Organization Address City/[facility]/ZIP Code Phon e Number HP CONVERSION Rheumatoid Factor, Quant (08/30/2002 10:01 AM CDT) P athologist Signature Rheumatoid <10 0 - 20 HP CONVERSION Factor IU/mL Specimen (Source) Anatomical Collection Method Collection Time Re ceived Time Location / / Volume Laterality 08/30/2002 10:01 AM CDT Edwardo Michele MD LAB_1 Performing Organization Address City/[facility]/ZIP Code Phon e Number HP CONVERSION ESR (08/30/2002 10:01 AM CDT) Patholo gist Method Time Signature Sedimentation Rate 0 0 - 15 HP CONVERSI ON mm/Hr Specimen (Source) Anatomical Collection Method Collection Time Re ceived Time Location / / Volume Laterality 08/30/2002 10:01 AM CDT Edwardo Michele MD LAB_1 Performing Organization Address City/[facility]/ZIP [facility] Phon e Number HP CONVERSION documented in this encounter Visit Diagnoses Not on filedocumented in this encounter Care Teams Meal Grinder Tender Relationship Specialty Start Date End Date Chencho Arauz PA-C PCP - General 05/14/1012/16/11 documented as of this encounter
--- OUTSIDE RECORDS SUMMARY | 2021-11-05 19:28 | XMS_ITS | Encounter Summary ---
:1975 Author Organization [facility] Address [address] [address] Care Team Providers Name Role Phone Unavailable Primary Care Provider Unavailable Encounter Details Date Type Department Care Team Description 03/08/2006 Emergency Scientologist Emergency Center Lucretia Cohen MD [address] [place], [place] [id number] [address] [facility]. Lucretia Cohen MD [address] [place], [place] [id number] [place], [place] [id number] Social History Tobacco Use Types Packs/Day Years Used Date Smoking Tobacco: Never Assessed Sex Assigned at Date Recorded Not on file documented as of this encounter Medications at Time of Discharge Medication Sig Dispensed Refills Start Date End Date DIAZEpam (AKA VALIUM) 5 Take 1 tablet by mouth 20 0 03/08/2006 03/15/2006 MG tablet 4 times daily as needed. LW Addl Instr:Do not mix with ativan or alprazolam Indicated for: back pain HYDROcodone-acetaminoph Take 1-2 tablets by 30 0 06/06/2006 en (VICODIN) 5-500 MG mouth every 4 hours as tablet needed. LW Addl Instr:Do not mix with Tylenol, but OK to mix with ibuprofen. Maximum of 8 tablets/24 hours. unknown medication Indications: PN: 0 03/08/2006 07/21/2006 unknown medication Indications: PN: 0 08/08/2004 08/13/2007 documented as of this encounter ED Notes Lucretia Cohen MD - 03/08/2006 12:01 AM CST ED Provider Notes signed by Lucretia Cohen MD at 03/23/06 0316 Author: Lucretia Cohen MD Service: (none) Author Type: Physician Filed: 06/01/10 3778 Note Time: 03/08/061700 Status: Signed Curatorial Assistant: Lucretia Cohen MD (Physician) NAME: JOSE LUIS SHIPLEY MR#: [id number] ACCT: [id number] VISIT: AUTHENTICATING CLINICIAN: Lucretia Cohen MD JOB: [id number] LOC: 1 EMERGENCY CENTER REPORT : 1975 PRIMARY CARE PHYSICIAN: Edwardo Michele MD DATE OF SERVICE: 03/08/06 CHIEF COMPLAINT: Low back pain. HISTORY OF PRESENT ILLNESS: Jose Luis is a 31-year-old, otherwise healthy man who has had a little bit of low back pain and tightness after playing his Friday morning basketball game. Today, he bent to lift a TV and he felt as though he was doing it correcting, using his legs, but he had sudden, severe low back pain that was very sharp. It radiated on the left side, down his left buttock and just below his hip on that side. Throughout the day today he has had ongoing, severe, sharp, stabbing pain, shooting down his leg with spasms associated with this. He has never had anything similar. The left is greater than the right. No trouble with continence. No weakness. He has been able to walk, but gingerly. PAST MEDICAL HISTORY/PAST SURGICAL HISTORY: None. MEDICATIONS: None. ALLERGIES: NONE. SOCIAL HISTORY/FAMILY HISTORY: He is here with his . 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 REVIEW OF SYSTEMS: Please see history of present illness. All other systems are negative. PHYSICAL EXAMINATION: VITAL SIGNS: BP: 127/69. T: 97.8. P: 95. R: 12. Oxygen saturation: 97%. GENERAL: A pleasant, fit young man who looks not physically distressed. He is laying flat on his back on the gurney. HEENT: Head is normocephalic, atraumatic. Eyes: Pupils are equal, round, and reactive to light. Ears: Tympanic membranes are clear. Mouth: Mucous membranes are moist. NECK: Supple. CARDIOVASCULAR: Regular rate and rhythm without murmurs. LUNGS: Clear without wheezes. ABDOMEN: Soft. BACK: Normal to inspection and palpation. Gentle palpation of the muscles is tender but does not reproduce his pain. He has normal strength and his gait is normal. EMERGENCY DEPARTMENT COURSE: I offered Jose Luis intramuscular or intravenous pain control in the emergency room and he wished instead to do prescriptions for home. I think this is reasonable. IMPRESSION: PLAN: I gave him prescriptions for Vicodin, Valium for muscle spasm and a Medrol Dosepak. I would like him to also use ibuprofen and rest his back. I referred him to physical therapy to help with this problem and help prevent it from recurring in the future. Return to the emergency room for numbness, weakness or tingling, uncontrolled pain or any new concerns. DIAGNOSIS: Low back pain, likely radiculopathy. PATSY:[id number] C: 03/09/06 14:01 DOCUMENT: [id number] LE FEEDER documented in this encounter Plan of Treatment Not on filedocumented as of this encounter Visit Diagnoses Not on filedocumented in this encounter
--- OUTSIDE RECORDS SUMMARY | 2021-11-05 19:28 | XMS_ITS | Encounter Summary ---
:1975 Author Organization [facility] Address [address] [place] [address] Care Team Providers Name Role Phone Chencho Arauz PA-C Primary Care Provider Unavailable Encounter Details Date Type Department Care Team Description 05/09/2006 Office Visit [facility] Dara Rodas PA-C [address] [facility] [address] [facility] [place], [place] [address] [place] [address] [phone] Social History Tobacco Use Types Packs/Day Years Used Date Smoking Tobacco: Never Assessed Sex Assigned at Date Recorded Not on file documented as of this encounter Progress Notes Dara Rodas PA-C - 05/09/2006 12:01 AM CDT Progress Notes signed by Dara Rodas PA-C at 05/16/06 1032 Author: Dara Rodas PA-C Service: (none) Author Type: Resource Filed: 06/01/10 1826 Note Time: 05/09/06 0001 Status: Signed Insurance Sales Producer: Dara Rodas PA-C (Resource) NAME: JOSE LUIS SHIPLEY MR#: [id number] ACCT: VISIT: [id number] DICTATING CLINICIAN: Dara Rodas PA-C JOB: [id number] LOC: 3711 CLINIC PROGRESS NOTE DATE OF VISIT: 05/09/2006 SUBJECTIVE: : 1975. Mr. Shipley returns to clinic today approximately 10 days status post a right shoulder arthroscopic reduction of a grade 3 AC joint separation with surgical repair using the TightRope technique. Mr. Shipley reports he has been doing well. He initially had some pain control issues, although recently his pain has improved significantly. He denies any tingling or numbness of the right upper extremity. Reports he has been wearing the sling and working on daily range of motion exercises at the elbow. He has been able to return to work without a problem. He denies any fevers, chills, or night sweats. OBJECTIVE: Incision site is healing well. There is a very minimal bit of redness, although it looks like it was irritation from the sutures. There is no drainage present. Skin is cool to the touch. Today in clinic, sutures were removed and Steri-Strips were applied. Jose Luis has full range of motion at the elbow. Sensation is intact to light touch throughout the right upper extremity. ASSESSMENT: Healing status post right shoulder arthroscopic reduction of a grade 3 acromioclavicular joint sprain. PLAN: Mr. Shipley will continue to wear the sling at all times except for when he works on his elbow range of motion exercises. He is not attending physical therapy for the time being. I did e-mail Dr. Keith Carvajal for clarification regarding postoperative rehab plan. I am not sure if he wants him doing any gentle range of motion exercises at the shoulder right now. I will plan on calling Hernandez if there are any changes that need to be made, but for the time being, he will continue to wear the sling at all times and work on elbow range of motion exercises. He will follow up with Dr. Keith Carvajal in 4 weeks for a recheck. Per Dr. Carvajal: continue sling x 6 weeks with gentle ROM exercises at elbow. ALH:[id number] C: 05/09/06 16:24 DOCUMENT: [id number] documented in this encounter Plan of Treatment Not on filedocumented as of this encounter Visit Diagnoses Not on filedocumented in this encounter Care Teams Retail Leader Relationship Specialty Start Date End Date Chencho Arauz PA-C PCP - General 05/14/1012/16/11 documented as of this encounter
--- OUTSIDE RECORDS SUMMARY | 2021-11-05 19:28 | XMS_ITS | Encounter Summary ---
:1975 Author Organization [facility] Address [address] [place] [address] Care Team Providers Name Role Phone Chencho Arauz PA-C Primary Care Provider Unavailable Encounter Details Date Type Department Care Team Description 08/08/2004 Office Visit [facility] Urgent Flavia Cadena MD Care [address] [place] [address] [place], [place] [address] [phone] Social History Tobacco Use Types Packs/Day Years Used Date Smoking Tobacco: Never Assessed Sex Assigned at Date Recorded Not on file documented as of this encounter Last Filed Vital Signs Vital Sign Reading Time Taken Comments Blood Pressure 124/68 08/08/2004 12:31 PM CDT Pulse 64 08/08/2004 12:31 PM CDT Temperature 36.5 ??C (97.7 ??F) 08/08/2004 12:31 PM CDT C: 3 6.5 C Respiratory Rate 16 08/08/2004 12:31 PM CDT Oxygen Saturation - - Inhaled Oxygen Concentration - - Weight - - Height - - Body Mass Index - - documented in this encounter Progress Notes Flavia Cadena MD - 08/08/2004 12:01 AM CDT Progress Notes signed by Flavia Cadena MD at 09/05/04 1428 Author: Flavia Cadena MD Service: (none) Author Type: Physician Filed: 06/01/10 0547 Note Time: 08/08/04 0001 Status: Signed [facility] Care Associate: Flavia Cadena MD (Physician) NAME: JOSE LUIS SHIPLEY MR: [id number] ACCT: [id number] VISIT: [id number] DICTATING CLINICIAN: FLAVIA ORDONEZ MD JOB: [id number] CLINIC PROGRESS NOTE DATE OF VISIT: 08/08/2004 SUBJECTIVE: The patient comes in today with right ear feeling plugged. Has tried some ear cleaning treatments at home without relief. No URI symptoms. No fever. PAST MEDICAL HISTORY: Per LastWord. MEDICATIONS: Per LastWord. ADR/ALLERGIES: PER LASTWORD. OBJECTIVE: VS: BP: 124/68. T: 97.2. P: 54. R: 16. GENERAL APPEARANCE: In no apparent distress. HEENT: Right TM initially obscured by a large amount of cerumen, which was successfully irrigated and revealed normal TMs and canal bilaterally. ASSESSMENT: Ceruminosis, now resolved. PLAN: Followup care p.r.n. SMS:[id number] C: 08/09/04 11:55 DOCUMENT: [id number] documented in this encounter Plan of Treatment Not on filedocumented as of this encounter Visit Diagnoses Not on filedocumented in this encounter Care Teams Fitter/Welder Relationship Specialty Start Date End Date Chencho Arauz PA-C PCP - General 05/14/1012/16/11 documented as of this encounter
--- OUTSIDE RECORDS SUMMARY | 2021-11-05 19:28 | XMS_ITS | Encounter Summary ---
:1975 [facility] Address [address] [place] [address] Care Team Providers Name Role Phone Chencho Arauz PA-C Primary Care Provider Unavailable Reason for Visit Reason Comments Other Encounter Details Date Type Department Care Team Description 04/24/2006 Telephone CONV [facility], Message Other [address] [place] [address] Social History Tobacco Use Types Packs/Day Years Used Date Smoking Tobacco: Never Assessed Sex Assigned at Date Recorded Not on file documented as of this encounter Progress Notes Center, Message - 04/24/2006 11:27 AM CDT Phone Note filed by GL 2ours at 05/29/10 047 Author: GL 2ours Service: (none) Author Type: (none) Filed: 05/29/101721 Note Time: 04/24/067 Status: Signed Professor Of Chemical Engineering: GL 2ours Please schedule post op appt with Yao Rodas 10 - 14 days. Surgery @ [facility] 04/29 07 Created on 24Apr2006 11:27am by JAKE REDDY D On 24Apr2006 11:43am EMILY FELIX wrote: sx: 04/29 right shoulder, Yao Rodas 10-14 days, lmovm 04/24 bw On 25Apr2006 11:26EMILY Correa wrote: lmvom 04/25 bw On 28Apr2006 11:55am EMILY FELIX wrote: done NT SERVICES ACCOUNT MANAGER documented in this encounter Plan of Treatment Not on filedocumented as of this encounter Visit Diagnoses Not on filedocumented in this encounter Care Teams Store Merchandiser Relationship Specialty Start Date End Date Chencho Arauz PA-C PCP - General 05/14/1012/16/11 documented as of this encounter
--- OUTSIDE RECORDS SUMMARY | 2021-11-05 19:28 | XMS_ITS | Encounter Summary ---
:1975 Author Organization [facility] Address [address] [place] [address] Care Team Providers Name Role Phone Chencho Arauz PA-C Primary Care Provider Unavailable Encounter Details Date Type Department Care Team Description 08/30/2002 PN Conversion Only MANAGER MENTAL HEALTH [address] [place] [address] Social History Tobacco Use Types Packs/Day Years Used Date Smoking Tobacco: Never Assessed Sex Assigned at Date Recorded Not on file documented as of this encounter Plan of Treatment Not on filedocumented as of this encounter Visit Diagnoses Not on filedocumented in this encounter Care Teams Restaurant Bartender Relationship Specialty Start Date End Date Chencho Arauz PA-C PCP - General 05/14/1012/16/11 documented as of this encounter
--- OUTSIDE RECORDS SUMMARY | 2021-11-05 19:28 | XMS_ITS | Encounter Summary ---
:1975 Author [facility] Address [address] [place] [address] Care Team Providers Name Role Phone Chencho Arauz PA-C Primary Care Provider Unavailable Encounter Details Date Type Department Care Team Description 04/21/2006 Office Visit [facility] Dara Rodas PA-C [address] [facility] [address] [facility] [place], [place] [address] [place] [address] [phone] Social History Tobacco Use Types Packs/Day Years Used Date Smoking Tobacco: Never Assessed Sex Assigned at Date Recorded Not on file documented as of this encounter Progress Notes Dara Rodas PA-C - 04/21/2006 12:01 AM CDT Progress Notes signed by Dara Rodas PA-C at 04/24/06 1903 Author: Dara Rodas PA-C Service: (none) Author Type: Resource Filed: 06/01/10 8353 Note Time: 04/21/06 0001 Status: Signed Hogshead Hooper: Dara Rodas PA-C (Resource) NAME: JOSE LUIS SHIPLEY MR#: [id number] ACCT: VISIT: [id number] DICTATING CLINICIAN: Dara Rodas PA-C JOB: [id number] LOC: 3711 CLINIC PROGRESS NOTE DATE OF VISIT: 04/21/2006 SUBJECTIVE: : 1975 Mr. Shipley presents to clinic today for evaluation of a right shoulder injury which occurred two days ago on 04/19/06. He reports he was in [employer] skiing when he fell landing on the lateral aspect of his shoulder. He noted pain which he localizes over the acromioclavicular joint. He was seen in an urgent care, x-rays were obtained. He was placed into a sling and told to followup in orthopedics. He has been taking ibuprofen and Vicodin as needed. He denies any other injuries. Denies pain over the glenohumeral joint. Denies any pain of the cervical spine or of the right upper extremity. Denies any tingling or numbness of the right upper extremity. He has not had a history of problems with his right shoulder. PAST MEDICAL HISTORY, REVIEW OF SYSTEMS: Negative for ENT, cardiac, respiratory, GI, , neurologic, endocrine, or psychiatric problems. ADR/ALLERGIES: NONE. CURRENT MEDICATIONS: Ibuprofen 800 mg and Vicodin 5/500. SURGICAL HISTORY: None. SOCIAL HISTORY: Patient is . 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 Denies the use of recreational drugs or tobacco. Drinks alcohol socially. Exercises weekly and always wears a seatbelt. PAST FAMILY HISTORY: Significant for cancer in a grandparent including pancreatic and prostate cancer. Heart disease in a grandparent. OBJECTIVE: On exam this is a pleasant, well-nourished, well-developed healthy appearing 31-year-old white male in no acute distress. He is alert and oriented x 3. EXTREMITIES: On exam upper extremities are compared bilaterally. On observation he does have palpation and an area of swelling in the region of the acromioclavicular joint, particularly over the region of the distal clavicle. The skin is clear. There is no erythema or ecchymosis present. He has tenderness to palpation over the AC joint. The distal clavicle is elevated and can be reduced here in clinic. Also is fairly mobile anterior to posterior with applied pressure. He has a positive piano phillips test. The remainder of the shoulder is entirely nontender. He has no tenderness to palpation over the cervical spine. He has full range of motion of the cervical spine without pain. Range of motion of the shoulder is full, although he does have some discomfort particularly with forward elevation above 90 degrees and pain with horizontal adduction. Strength is limited due to pain but feels as though rotator cuff strength is fully intact in all planes. He is entirely neurovascularly intact in both upper extremities. X-rays were reviewed in clinic today. These reveal three views of the shoulder. These were obtained on 04/19/06 in [place]. They reveal a type III acromioclavicular joint sprain. No fractures or other abnormalities are noted. ASSESSMENT: Right shoulder type III acromioclavicular joint sprain. PLAN: Patient was seen in clinic today with Dr. Keith Carvajal as well. They discussed treatment options. I explained to him that it is somewhat controversial regarding a type III AC joint sprain treatment, risks and benefits of surgical versus nonsurgical treatment were explained. This is his dominant arm. 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 He is going to go home and talk with his regarding the options. If he does choose to proceed with surgery, he is going to try to let us know by the end of the week as we explained to him that we like to fix these within two weeks of the time of injury; otherwise, if he chooses nonoperative treatment, he will continue to stay in the sling, use ice and anti-inflammatory medications for pain control, and work on very gentle range of motion. We will plan on seeing him back in three weeks for recheck if he chooses nonoperative treatment. He was given a card for Sherry Mack if he chooses to proceed with surgery. ALH:[id number] C: 04/22/06 17:09 DOCUMENT: [id number] documented in this encounter Plan of Treatment Not on filedocumented as of this encounter Visit Diagnoses Not on filedocumented in this encounter Care Teams Vice Principal Relationship Specialty Start Date End Date Chencho Arauz PA-C PCP - General 05/14/1012/16/11 documented as of this encounter
--- OUTSIDE RECORDS SUMMARY | 2021-11-05 19:28 | XMS_ITS | Encounter Summary ---
:1975 Author Organization [employer] Address [address], [place] [address] Care Team Providers Name Role Phone Unavailable Primary Care Provider Unavailable Encounter Details Date Type Department Care Team Description 04/29/2006 - Hospital Encounter Baptism 4Osiel Fleming MD [address] [place] [address] 04/30/2006 Medsurg/CYMicky Tran MD [address] [place] [address] [address] [place], [place] [id number] Social History Tobacco Use Types Packs/Day Years Used Date Smoking Tobacco: Never Assessed Sex Assigned at Date Recorded Not on file documented as of this encounter Last Filed Vital Signs Vital Sign Reading Time Taken Comments Blood Pressure 124/59 04/30/2006 3:52 PM C: Dynamap CDT Pulse 80 04/30/2006 3:52 PM CDT Temperature 36.9 ??C (98.4 ??F) 04/30/2006 3:52 PM ORAL C: 9 8.4 F CDT Respiratory Rate 16 04/30/2006 3:52 PM CDT Oxygen Saturation 96% 04/30/2006 3:52 PM CDT Inhaled Oxygen Concentration - - Weight - - Height - - Body Mass Index - - documented in this encounter Discharge Summaries Micky Pastrana MD - 04/30/2006 12:01 AM CDT Discharge Summaries signed by Micky Pastrana MD at 05/02/06 1410 Author: Micky Pastrana MD Service: (none) Author Type: Physician Filed: 06/01/10 1814 Note Time: 04/30/06814 Status: Signed Hot Dog Vendor: Micky Pastrana MD (Physician) NAME: JOSE LUIS SHIPLEY MR#: [id number] ACCT: [id number] AUTHENTICATING CLINICIAN: MICKY PASTRANA MD JOB: [id number] LOC: 1 HOSPITAL DISCHARGE SUMMARY DATE OF ADMISSION: 04/29/06. DATE OF DISCHARGE: 04/30/06. ADMITTING DIAGNOSIS: DISCHARGE DIAGNOSIS: Grade 3 acromioclavicular separation, right shoulder, status post arthroscopic reduction of acromioclavicular separation. HISTORY: Jose Luis Shipley is a 31-year-old gentleman with grade 3 AC separation on the right shoulder. Underwent arthroscopic reduction of grade 3 AC separation. He was admitted for overnight stay. I would ask the reader reference my operative note for further details. HOSPITAL COURSE: Postoperatively, the patient's postoperative course is remarkable for nausea and vomiting on postoperative day number 1. The patient FRONT SIGHT ATTACHER was discontinued and the patient was switched to oral medications, and we will await resolution of the nausea and vomiting before discharge. DISCHARGE MEDICATIONS: Percocet 1-2 p.o. q.4-6 p.r.n. DIET: Regular. CONDITION ON DISCHARGE/INSTRUCTIONS: A sling at all times except shower. Pendulum exercises daily for 20 reps. Follow up in 2 weeks at [facility]. No further instructions. MRW:[id number] C: 05/01/06 07:06 DOCUMENT: [id number] documented in this encounter Medications at Time of Discharge Medication Sig Dispensed Refills Start Date End Date HYDROcodone-acetaminophe Take 1-2 tablets by 30 0 06/06/2006 n (VICODIN) 5-500 MG mouth every 4 hours tablet as needed. LW Addl Instr:Do not mix with Tylenol, but OK to mix with ibuprofen. Maximum of 8 tablets/24 hours. unknown medication Indications: PN: 0 04/28/2006 08/13/2007 unknown medication Indications: PN: 0 04/25/2006 07/21/2006 unknown medication Indications: PN: 0 03/08/2006 07/21/2006 unknown medication Indications: PN: 0 08/08/2004 08/13/2007 documented as of this encounter Procedure Notes Micky Pastrana MD - 04/29/2006 12:01 AM CDT OR Surgeon signed by Micky Pastrana MD at 05/02/06 1410 Author: Micky Pastrana MD Service: (none) Author Type: Physician Filed: 06/01/101811 Note Time: 04/29/062028 Status: Signed Hot Dog Vendor: Micky Pastrana MD (Physician) NAME: JOSE LUIS SHIPLEY MR#: [id number] ACCT: [id number] AUTHENTICATING CLINICIAN: MICKY PASTRANA MD JOB: [id number] LOC: 1 OPERATIVE REPORT DATE OF OPERATION: 04/29/06. INDICATIONS FOR PROCEDURE: Jose Luis Shipley is a 31-year-old gentleman who injured his right AC joint while downhill skiing approximately a week and a half ago, subsequently elected for operative intervention. PREOPERATIVE DIAGNOSIS: Right shoulder, grade III acromioclavicular separation. POSTOPERATIVE DIAGNOSIS: Right shoulder, grade III acromioclavicular separation. PROCEDURE PERFORMED: Arthroscopic reduction, grade III AC joint separation, right shoulder. SURGEON: Micky Pastrana MD. ACADEMIC HOSPITALIST: Dara Rodas. ESTIMATED BLOOD LOSS: Minimal. FLUID: 1,800 mL of crystalloid. DRAINS: None. COMPLICATIONS: None. FINDINGS: DESCRIPTION OF OPERATION: The patient is brought to the operating room, placed in the beach chair position, prepped and draped in sterile fashion. He received 1 g of preoperative Ancef before any incision was made. Utilizing a standard posterior portal, we entered the shoulder joint and did an inspection of the shoulder joint. The shoulder looked completely normal. We subsequently turned our attention towards establishing an anterior portal under direct visualization. Once this was accomplished, we brought our ArthroCare wand in, cleared the rotator interval until we could see the base of the coracoid. We cleared the base of the coracoid and turned our attention towards the reduction and the open procedure. Placing a 1-1/2-cm incision in Jasbir's lines over the dorsum of the clavicle. We incised through skin and subcu tissue, and used electrocautery to achieve hemostasis. We dissected in line with the deltotrapezial fascia and cleared the clavicle. We brought the guide into position, confirmed with C-arm that its alignment was good, fired the guidepin through the clavicle and into the coracoid, and under direct visualization from the scope confirmed adequate placement. C-arm was brought into position to confirm that we were centered center on the coracoid and the clavicle. We subsequently overdrilled the guidepin with the 4-mm cannulated reamer and placed a nitinol wire down the cannulated reamer and retrieved it through the anterior portal. Through this we passed the lead sutures of the Arthrex TightRope System and brought them into the shoulder joint under direct visualization. Using the lead sutures, we pulled the EndoButton through the collarbone and the coracoid and toggled it into position and locked it up against the base of the coracoid. We subsequently reduced the clavicle using the reduction threads on the dorsum of the clavicle, and under C-arm visualization confirmed the reduction in all planes. We subsequently tied over the top of the EndoButton, washed copiously, closed the deltotrapezial fascia, the subcu tissues using interrupted Vicryl sutures and closed the skin using interrupted nylon sutures for the portals and the 1-1/2-cm incision on the dorsum of the clavicle. He was placed in a sling, bulky bandage, and transported to the recovery room hemodynamically normal and in good condition. MRW:[id number] C: 04/29/06 22:33 DOCUMENT: [id number] documented in this encounter Miscellaneous Notes Miscellaneous - Micky Pastrana MD - 04/30/2006 12:01 AM CDT ICD-9-CM ICD-9-CM Narrative description Code ======== DIAGNOSES Principal: DISLOC ACROMIOCLAVIC-CL 831.04 Secondary: FALL FROM SKIS E885.3 ACCID IN RECREATION AREA E849.4 PROCEDURES Provider1 Date Principal: SHOULDER ARTHROPLAST NEC MICKY PASTRANA [id number] 81.83 Provider2: Provider3: documented in this encounter Plan of Treatment Not on filedocumented as of this encounter Procedures Procedure Name Priority Date/Time Associated Diagnosis Comme nts FL C ARM > 1 HOUR Routine 04/29/2006 8:00 PM Resu lts for this CDT procedure are i n the results section. XR SHOULDER RT 1 Routine 04/29/2006 8:00 PM Resul ts for this VIEW CDT procedure are i n the results section. BEDSIDE GLUCOSE Routine 04/29/2006 1:23 PM Result s for this MONITOR POCT CDT procedure are i n the results section. documented in this encounter Results FL C Arm > 1 Hour (04/29/2006 8:00 PM CDT) Anatomical Region Laterality Modality Other Specimen (Source) Anatomical Location Collection Method / Collectio n Time Received Time / Laterality Volume Narrative 04/29/2006 8:00 PM CDT URS See surgical report in LastWord using co mmand TRXALL. Dictating MICKY GUPTA MD Procedure Note Micky Pastrana MD - 04/18/2016Formatt ing of this note might be different from the original. URS See surgical report in LastWord using co mmand TRXALL. Dictating MICKY GUPTA MD Micky Pastrana MD RAD FL XR Shoulder Rt 1 View (04/29/2006 8:00 PM CDT) Anatomical Region Laterality Modality Upper Extremity, Shoulder Other Specimen (Source) Anatomical Location Collection Method / Collectio n Time Received Time / Laterality Volume Narrative 04/29/2006 8:00 PM CDT A single view demonstrates metallic device overlying the right shoulder. ??The acromioclavicular joint, which is widely on outside films of 04/19/2006, appears to be in anatomic alignment. [id number]/mb Dictating TRACEY GAUTAM RADIOLOGIST Procedure Note Tracey Berry - 04/18/2016Formattin g of this note might be different from the original. A single view demonstrates metallic donald ce overlying the right shoulder. The acromioclavicular joint, w hich is widely on outside films of 04/19/2006, appears to be in anatomic alignment. [id number]/[facility] Dictating TRACEY GAUTAM RADIOLOGIST Micky Pastrana MD RAD GD Bedside Glucose Monitor (04/29/2006 1:23 PM CDT) P athologist Signature Bedside Blood 94 mg/dL HP CONVERSION Glucose Test Blood Glucose * No normal HP CONVERSION Screen, range Comment 1 Blood Glucose * No normal HP CONVERSION Screen, range Comment 2 Blood Glucose * No normal HP CONVERSION Screen, range Comment 3 Specimen (Source) Anatomical Collection Method Collection Time Re ceived Time Location / / Volume Laterality 04/29/2006 1:23 PM CDT Micky Pastrana MD LAB_1 Performing Organization Address City/State/ZIP Code Phon e Number HP CONVERSION documented in this encounter Visit Diagnoses Not on filedocumented in this encounter
--- OUTSIDE RECORDS SUMMARY | 2021-11-05 19:28 | XMS_ITS | Encounter Summary ---
:1975 Author Organization [facility] Address [address], [place] [address] Care Team Providers Name Role Phone Chencho Arauz PA-C Primary Care Provider Unavailable Encounter Details Date Type Department Care Team Description 03/20/2004 PN Conversion Only ARTIST'S REPRESENTATIVE [address] Chaka Hodge [facility] [address] [place] [address] [place] [address] Social History Tobacco Use Types Packs/Day Years Used Date Smoking Tobacco: Never Assessed Sex Assigned at Date Recorded Not on file documented as of this encounter Plan of Treatment Not on filedocumented as of this encounter Procedures Procedure Name Priority Date/Time Associated Comments Diagnosis URINALYSIS COMPLETE Routine 03/20/2004 1:21 PM Re sults for this HOLD CULTURE TANBARK LABORER procedure are i n the results section. COMPLETE BLOOD Routine 03/20/2004 1:21 PM Results for this COUNT-W/DIFF [employer] procedure are i n the results section. AMYLASE Routine 03/20/2004 1:21 PM Results f or this [employer] [employer] procedure are i n the results section. LIPASE Routine 03/20/2004 1:21 PM Results f or this [employer] [employer] procedure are i n the results section. GT (GAMMA GT) Routine 03/20/2004 1:21 PM Results for this [employer] procedure are i n the results section. ALT (SGPT) Routine 03/20/2004 1:21 PM Results f or this [employer] procedure are i n the results section. AST Routine 03/20/2004 1:21 PM Results f or this [employer] procedure are i n the results section. ALKALINE Routine 03/20/2004 1:21 PM Results f or this PHOSPHATASE, TOTAL [facility] [employer] procedure are in the results section. documented in this encounter Results Complete Blood Count-W/Diff (03/20/2004 1:21 PM TANBARK LABORER) [facility] Method Time Signature White Blood Cell 5.6 3.8 - 11.0 HP CONVERSIO N Count K/cmm Red Blood Cell 5.40 4.20 - HP CONVERSION Count 5.90 m/cmm Hemoglobin 16.4 13.4 - HP CONVERSION 17.5 gm/dL Hematocrit 47.5 39.0 - HP CONVERSION 51.0 % Mean Corpuscular 87.8 80.0 - HP CONVERSION Volume 100.0 fl Mean Corpuscular 30.4 27.0 - HP CONVERSION Hemoglobin 34.0 pg Mean Corpuscular 34.6 32.0 - HP CONVERSION Hemoglobin Conc 36.5 gm/dL [place] RDW 11.3 11.0 - HP CONVERSION 15.0 % Platelet Count 242 140 - 450 HP CONVERSION k/cmm Differential Auto-Dif No normal HP CONVERSION Verify range Neutrophils 3.6 2.0 - 7.5 HP CONVERSION Absolute Count K/cmm Neutrophil 64.9 50.0 - HP CONVERSION 75.0 % Lymphocyte % 27.1 20.0 - HP CONVERSION 40.0 % Monocyte 6.5 5.0 - 14.0 HP CONVERSION % Eosinophil 1.0 0.0 - 6.0 HP CONVERSION % Basophil % 0.5 0.0 - 2.0 HP CONVERSION % Specimen (Source) Anatomical Collection Method Collection Time Re ceived Time Location / / Volume Laterality 03/20/2004 1:21 PM TANBARK LABORER Chaka Hodge [facility] LAB_1 Performing Organization Address City/State/ZIP Code Phon e Number HP CONVERSION Alkaline Phosphatase, Total (03/20/2004 1:21 PM TANBARK LABORER) P athologist Signature Alk Phos 99 50 - 136 U/L HP CONVERSION Specimen (Source) Anatomical Collection Method Collection Time Re ceived Time Location / / Volume Laterality 03/20/2004 1:21 PM TANBARK LABORER Chaka Hodge [facility] LAB_1 Performing Organization Address City/State/ZIP Code Phon e Number HP CONVERSION ALT (SGPT) (03/20/2004 1:21 PM TANBARK LABORER) [facility] Method Time Signature Alanine 41 0 - 65 HP CONVERSION Aminotransferase U/L Specimen (Source) Anatomical Collection Method Collection Time Re ceived Time Location / / Volume Laterality 03/20/2004 1:21 PM TANBARK LABORER Chaka FELIX LAB_1 Performing Organization Address [facility] Code Phon e Number HP CONVERSION Amylase (03/20/2004 1:21 PM TANBARK LABORER) athologist Signature Amylase Serum 58 25 - 115 HP CONVERSION U/L Specimen (Source) Anatomical Collection Method Collection Time Re ceived Time Location / / Volume Laterality 03/20/2004 1:21 PM TANBARK LABORER Chaka FELIX LAB_1 Performing Organization Address City/[facility] Phon e Number HP CONVERSION AST (03/20/2004 1:21 PM TANBARK LABORER) [facility] Method Time Signature Aspartate 16 0 - 45 HP CONVERSION Aminotransferase U/L Specimen (Source) Anatomical Collection Method Collection Time Re ceived Time Location / / Volume Laterality 03/20/2004 1:21 PM TANBARK LABORER Chaka FELIX LAB_1 Performing Organization Address [facility] Phon e Number HP CONVERSION Urinalysis Complete Hold Culture (03/20/2004 1:21 PM TANBARK LABORER) [facility] gist Method Time Signature U Specific >=1.030 1.005 - 25 HP CONVERSION [place] pH Urine 6.0 4.5 - 7.5 HP CONVERSION Protein Urine Negative Neg-Trac HP CONVERSION Glucose, Negative Neg-Trac HP CONVERSION Qualitative U Ketones Negative Negative HP CONVERSION U BILI Negative Negative HP CONVERSION Blood Urine Negative Negative HP CONVERSION Nitrite Urine Negative Negative HP CONVERSION Leukocyte Negative Negative HP CONVERSION Esterase Urine Urobilinogen Negative 0.2 - 1.0 HP CONVERSION Urine White Blood 0-2/HPF 0 - 3 HP CONVERSION Cells Urine Epithelial Cells Few Few /HPF HP CONVERSION Urine Mucus Moderate None HP CONVERSION Specimen (Source) Anatomical Collection Method Collection Time Re ceived Time Location / / Volume Laterality 03/20/2004 1:21 PM TANBARK LABORER Chaka FELIX LAB_1 Performing Organization Address [facility] Phon e Number HP CONVERSION GT (Gamma GT) (03/20/2004 1:21 PM TANBARK LABORER) athologist Signature Gamma-Glutamyl 30 5 - 85 U/L HP CONVERSION Transferase Specimen (Source) Anatomical Collection Method Collection Time Re ceived Time Location / / Volume Laterality 03/20/2004 1:21 PM TANBARK LABORER Chaka Myrick Ayesha FELIX LAB_1 Performing Organization Address City/[facility] Code Phon e Number HP CONVERSION Lipase (03/20/2004 1:21 PM TANBARK LABORER) P athologist Signature Lipase 202 114 - 286 HP CONVERSION U/L Specimen (Source) Anatomical Collection Method Collection Time Re ceived Time Location / / Volume Laterality 03/20/2004 1:21 PM TANBARK LABORER Chaka Myrick Ayesha FELIX LAB_1 Performing Organization Address City/[facility] Phon e Number HP CONVERSION documented in this encounter Visit Diagnoses Not on filedocumented in this encounter Care Teams Log Cut Off Sawyer Relationship Specialty Start Date End Date Chencho Arauz PA-C PCP - General 05/14/1012/16/11 documented as of this encounter
[2021-11-05 19:31] VITALS: BP 133/76; PULSE 75; RESP 18; O2SAT 96
[2021-11-05 19:38] LABS: Albumin* 4.9 g/dL (3.3-5.0); Chloride* 99 mmol/L (96-114)
[2021-11-05 19:39] LABS: Potassium* 3.6 mmol/L (3.6-5.1); Sodium* 138 mmol/L (135-149)
[2021-11-05 19:41] LABS: Creatinine* 0.9 mg/dL (0.5-1.5); Est. Creatinine Clearance* 110.39; Estimated Glomerular Filt Rate 107 ml/min
[2021-11-05 19:42] LABS: Alanine Aminotransferase* 28 U/L (4-50); Alkaline Phosphatase* 102 U/L (40-150); Aspartate Amino Transferase* 31 U/L (12-35); Bilirubin Total* 0.8 mg/dL (0.1-1.5); Blood Urea Nitrogen* 16 mg/dL (5-24); Calcium* 10.3 mg/dL (8.4-10.6); Carbon Dioxide* 26 mmol/L (20-32); Glucose* 138 mg/dL (60-115); Lipase* 59 U/L (23-300); Total Protein* 8.3 g/dL (6.0-8.3)
[2021-11-05 19:44] LABS: C Reactive Protein* 1.2 mg/dL (0.5-1.0)
[2021-11-05 19:46] LABS: Slide Review Reflex No
[2021-11-05 20:00] VITALS: BP 126/80; PULSE 80; RESP 18; O2SAT 96
[2021-11-05] MEDS: KETOROLAC 30 MG/ML inj IVP (20:08)
[2021-11-05 20:16] LABS: Troponin I* < 0.01 ng/mL (0.01-0.04)
--- NOTE | 2021-11-05 20:19 | CRLHL7_ITS ---
For Patients: As a result of the Century Cures Act, medical imaging exams and procedure reports are released immediately into your electronic medical record. You may view this report before your referring provider. If you have questions, please contact your health care provider. Indication: Constipation. Technique: Abdomen 3 view. Comparison: None. Findings: Bowel: Mild gaseous distention of multiple large bowel loops. Average colonic stool volume. Other: No sign of free air. No sign of soft tissue mass. No suspicious calcifications. Osseous structures are unremarkable for age. Impression: Mild gas distention of multiple bowel loops. Average colonic stool volume. Dictated by Evi Putnam MD @ 11/05/2021 9:12:43 PM (Electronically Signed)
[2021-11-05 20:30] VITALS: BP 126/80; PULSE 77; RESP 14; O2SAT 97
--- NOTE | 2021-11-05 20:35 | PC.NURSE ---
pt to imaging
[2021-11-05 21:59] LABS: Appearance Urine Cloudy (Clear); Bilirubin Urine 1+ (Negative); Blood Urine Negative (Negative); Color Urine Yellow (Yellow); Glucose Urine Negative (Negative); Ketones Urine 4+ (Negative); Leukocyte Esterase Urine Negative (Negative); Nitrite Urine Negative (Negative); Protein Urine 2+ (Negative); Urobilinogen Urine 0.2 (0.2-1.0); pH Urine 8.5 (5.0-8.5)
[2021-11-05 22:12] LABS: Amorphous Sediment Urine Moderate; RBC Urine 0-2 (0-2); Squamous Epithelial Cell Urine Moderate (None-Few); WBC Urine 0-2 (0-5)
== END 2021-11-05 22:36 | disposition home or self-care (01) ==
PROVIDERS: Emergency Provider Student in an Organized Health Care Education/Training Program; PCP Family Medicine
DX: R10.9 Unspecified abdominal pain (principal); R00.2 Palpitations; R11.0 Nausea
CPT/HCPCS: 36415; 74019; 80053; 81003; 81015; 83690; 84484; 85025; 86140; 96374; 96375; 99283; 99284; C9113; J1885; J7030

== ENCOUNTER 2022-07-18 07:36 | Outpatient (CLI) | payer OTHER, SELFPAY | END 2022-07-18 07:37 | disposition home or self-care (01) | LOC: NFLDREF 07-21 10:03 | PROVIDERS: PCP Family Medicine; Referring Provider Family Medicine; Visit Provider Family Medicine | DX: Z00.00 Encounter for general adult medical examination without abnormal findings (principal); E78.5 Hyperlipidemia, unspecified | CPT/HCPCS: 80053; 80061 ==

== ENCOUNTER 2023-09-19 07:58 | Outpatient (CLI) | payer OTHER, SELFPAY ==
--- OUTSIDE RECORDS SUMMARY | 2023-09-19 08:00 | XMS_ITS | Clinical Summary ---
Author Organization [facility] Address [place], [place] [address] Care Team Providers Care Black Mill Operator Name Role Phone Artur Paul MD Primary Care Provider [phone] Allergies No known active allergies Medications Medication Sig Dispensed Refills Start Date End Date Status polyethylene glycol-electrolyte (GOLYTELY) 236-22.74-6.74 -5.86 gram suspensionIndication s:Colon cancer screening Drink 2 liters (1/2) the day before colonocopy and drink 2 liters (other 1/2) 6 hours before colonoscopy appointment. 4000 mL 10/04/2022 Active Active Problems Problem Noted Date Diagnosed Date Screening for cardiovascular condition 0 Social History Tobacco Use Types Packs/Day Years Used Date Smoking Tobacco: Never Smokeless Tobacco: Never Alcohol Use Standard Drinks/Week Comments Yes 0 (1 standard drink = 0.6 oz pur e alcohol) Social Connections Answer Date Recorded Frequency of Communication with Friends and Fami ly Not on file 01/11/2022 Financial Resource Strain Answer Date R ecorded Difficulty of Paying Living Expenses Not on file 02/10/2021 Difficulty of Paying Living Expenses Not on file 02/10/2021 Sex and Gender Information Value Date Recorded Sex Assigned at Not on file Gender Identity Not on file Sexual Orientation Not on file Obstetrics History Last Filed Vital Signs Vital Sign Reading Time Taken Comments Blood Pressure 103/64 12/26/2022 11:10 AM WOMEN DESIGNER Pulse 63 12/26/2022 11:10 AM WOMEN DESIGNER Temperature - - Respiratory Rate 16 12/26/2022 11:10 AM WOMEN DESIGNER Oxygen Saturation 98% 12/26/2022 11:10 AM WOMEN DESIGNER Inhaled Oxygen Concentration - - Weight 79.8 kg (176 lb) 01/11/2022 3:55 PM WOMEN DESIGNER Height - - Body Mass Index - - Plan of Treatment Health Maintenance Due Date Last Done Comments Tdap 02/25/1987 Depression screening for age 12+ 1988 HIV for age 15-65 02/25/1991 BMI (ht and wt on same day) for age 18+ 02/25/1994 Hepatitis C screening for age 18-79 02/25/1994 Tetanus booster 1996 Lipids for age 45-75 02/25/2021 COVID-19 vaccine series (2022- season) 2022 12/09/2021, 01/05/2021, 05/10/2020, Additional history exists Influenza for age 9-49 10/12/2023 Colonoscopy through age 75 12/26/2032 12/26/2022, Pneumococcal series for age 6-64 Aged Out No longer eligible based on patient's age to complete this topic Procedures Procedure Name Priority Date/Time Associated Diagnosis Comments COLONOSCOPY 12/26/2022 10:16 AM WOMEN DESIGNER from Last 3 Months or Most Recently Relevant to Health Maintenance Results * COLONOSCOPY (12/26/2022 10:16 AM WOMEN DESIGNER) 12/26/2022 10:1 6 AM WOMEN DESIGNER Narrative Transcriptions Brenden Ayala MD - 12/26/2022 11:03 AM CST Patient Name: Jose Luis Shipley Procedure Date: 12/26/2022 Gender: Male Date of : 1975 Admit Type: Outpatient Procedure: Colonoscopy Proceduralist: Brenden Ayala MD , Renita Rich (Nurse), Ivon Martínez (Nurse) Indications/Pre-Op Diagnosis: Screening for colorectal malignant neoplasm, Last colonoscopy: date unknown (unable to locate last colonoscopy report) Medications: Fentanyl 100 micrograms IV, Midazolam 4 mgIV, The level of sedation administered wasmoderate Procedure Description: The patient had risks, benefits and alternatives explained to andgave informed consent. The patient had a stable cardiopulmonary status and judged an adequate candidate for conscious sedation. The [id number] was passed through the anus and advanced to the terminal ileum. The colonoscopy was performed without difficulty. The patient tolerated the procedure well. The quality of the bowel preparationwas good. The terminal ileum, ileocecal valve, appendiceal orifice, and rectum were photographed. Complications: No immediate complications. Estimated Blood Loss & Specimen: Estimated blood loss: none. Specimen collected - None Findings: The perianal and digital rectal examinations were normal. The terminal ileum appeared normal. The colon (entire examined portion) was significantly redundant. The exam was otherwise without abnormality. Impressions/Post-Op Diagnosis: - The examined portion of the ileum was normal. - Redundant colon. - The examination was otherwise normal. - No specimens collected. Recommendation: - Patient has a contact number available for emergencies. The signsand symptoms of potential delayed complications were discussed with the patient. Return to normal activities tomorrow. Written discharge instructions were provided to the patient. - Resume previous diet. - Continue present medications. - Repeat colonoscopy in 10 years for screening purposes. - Miralax 1 capful (17 grams) in 8 ounces of water PO daily for 3months. Moderate Sedation: A time out was performed before the procedure. Moderate (conscious) sedation was administered by the endoscopy nurse and supervised bythe endoscopist. The following parameters were monitored: oxygensaturation, heart rate, blood pressure, EKG, CO2, respiratory rate, adequacy of pulmonary ventilation and reponse to care. Please refer to the patient's medical record flowsheets and nursing notes for moderate sedation details. Total physician intraservice time was 24 minutes. Brenden Ayala MD 12/26/2022 11:03:05 AM This report has been signed electronically. Note Initiated On: 12/26/2022 10:16 AM Procedure Code(s): --- Professional --- 21583, Colonoscopy, flexible; diagnostic, including collection of specimen(s) bybrushing or washing, when performed (separateprocedure) Diagnosis Code(s): --- Professional --- Z12.11, Encounter for screening formalignant neoplasm of colon Q43.8, Other specified congenitalmalformations of intestine CPT copyright 2021 [employer]. All rights reserved. The codes documented in this report are preliminary and upon metal welder reviewmay be revised to meet current compliance requirements. Scope In: 10:31:27 AM Scope Withdrawal Time 0 hours 9 minutes 5 seconds Scope Out: 10:53:09 AM Brenden Ayala MD PROCEDURE ORD from Last 3 Months or Most Recently Relevant to Health Maintenance Care Teams Black Mill Operator Relationship Specialty Start Date End Date Artur Paul MD [address] [place] [address] PCP - General Family Practice 04/08/19
--- OUTSIDE RECORDS SUMMARY | 2023-09-19 08:00 | XMS_ITS | Clinical Summary ---
[facility] Address [address] [place] [address] Care Team Providers Care Criminal Defense Attorney Name Role Phone Needs Pcp, Assignment Primary Care Provider Source Comments You are receiving this document as you are listed as the primary care provider,follow-up provider, or the patient has been referred to you for consultation.This is in compliance with the Medicare and[facility] EHR Incentive Program,which states Providers who transition their patient to another setting of careor provider of care or refers their patient to another provider of care shouldprovide summary care record for each transition of care or referral. [employer] Allergies No known active allergies Medications No known medications Active Problems Problem Noted Date Diagnosed Date Abdominal pain 03/04/2012 Overview: recurrent ; Abdominal pain, unspecified site Resolved Problems Problem Noted Date Diagnosed Date Resolved Date Routine general medical exam ination at a health care facility 01/11/2009 09/30/2013 Overview: Multisystem Exam Impacted cerumen 08/13/2007 04/24/2011 Overview: Cerumen Impacted Immunizations Name Administration Dates Next Due Flu Vac Preserv Free (3+yrs) 01/11/2009 H1n1 Miv Sanofi 3+ Yr (Injected) 01/11/2009 TDAP (BOOSTRIX) 10/13/2013 Td 08/30/2002 Social History Tobacco Use Types Packs/Day Years Used Date Smoking Tobacco: Never Smokeless Tobacco: Never Alcohol Use Standard Drinks/Week Comments Yes 3 (1 standard drink = 0.6 oz pure alcohol) Alcoholic Drinks/day: Amount:3-4 drinks; Freq:2-4/Month ; Sex and Gender Information Value Date Recorded Sex Assigned at Not on file Gender Identity Not on file Sexual Orientation Not on file Last Filed Vital Signs Vital Sign Reading Time Taken Comments Blood Pressure 130/63 05/19/2017 7:23 PM CDT Pulse 64 05/19/2017 7:23 PM CDT Temperature 35.4 ??C (95.8 ??F) 05/14/2021 3:43 PM CD T Respiratory Rate 24 05/19/2017 7:23 PM CDT Oxygen Saturation 100% 05/13/2017 4:10 PM CDT Inhaled Oxygen Concentration - - Weight 79.4 kg (175 lb) 05/14/2021 3:43 PM CDT Height 180.3 cm (5' 11) 05/14/2021 3:43 PM CDT Body Mass Index 24.41 05/14/2021 3:43 PM CDT Plan of Treatment Health Maintenance Due Date Last Done Comments Colon Cancer Screening Plan Due 1975 Hep C Screening (Preventive Services) 1975 Adult Preventive Visit 02/25/1994 HepB (1) 02/25/1995 Cholesterol 10/30/2018 10/30/2013, /09/2010, 01/11/2009, Additional history exists COVID-19 Vaccine ( - 2022- season) 2022 Influenza (#1) 2023 10/31/2014, 01/11/2009 DTaP/Tdap/Td (2 - Tdap) 10/14/2023 10/13/2013, 08/30 Zoster/Shingles (1 of 2) 02/25/2026 HIV Screening (Preventive Services) Completed 01/05/2001 HepA Aged Out No longer eligi ble based on patient's age to complete this topic Hib Aged Out No longer eligi ble based on patient's age to complete this topic IPV (Polio) Aged Out No longer eligi ble based on patient's age to complete this topic MCV4 Aged Out No longer eligi ble based on patient's age to complete this topic Pneumococcal Aged Out No longer eligi ble based on patient's age to complete this topic Procedures Procedure Name Priority Date/Time Associated Diagnosis Comments LIPID PANEL & DIRECT LDL (IF NEEDED) Routine 10/30/2013 8:16 AM CDT Screening for ischemic heart disease HIV ANTIBODY Routine 01/05/2001 3:19 PM AIRPLANE PILOT HELPER from Last 3 Months or Most Recently Relevant to Health Maintenance Results * Lipid Panel and Direct LDL(If Needed) (10/30/2013 8:16 AM CDT) Cholesterol 182 0 - 200 mg/dL HP CONVERSION Triglycerides 61 0 - 149 mg/dL HP CONVERSION HDL Cholesterol 48 >39 mg/dL HP CONVERSION Cholesterol/HDL Ratio Screen 3.8 HP CONVERSION LDL Calculated 122 19 - 130 mg/dL HP CONVERSION Hours Fasting 12.0 HP CONVERSION 10/30/2013 8:16 AM CDT 10/30/2013 8:16 AM CDT Narrative HP CONVERSION - 10/30/2013 9:24 AM CDT Performed at [facility], [facility] [place] [address] Chencho Arauz PA-C LAB_1 HP CONVERSION * HIV Antibody (01/05/2001 3:19 PM AIRPLANE PILOT HELPER) HIV 1/HIV 2 Non Reac Non Reac HP CONVERSION 01/05/2001 3:19 PM AIRPLANE PILOT HELPER Gigi Philippe MD LAB_1 Performing Organization Address City/[facility]/ZIP Co de Phone Number HP CONVERSION from Last 3 Months or Most Recently Relevant to Health Maintenance Care Teams Criminal Defense Attorney Relationship Specialty Start Date End Date Needs Pcp, [place] [address] PCP - General 01/22/23
--- NOTE | 2023-09-19 08:15 | CRLHL7_ITS ---
For Patients: As a result of the Century Cures Act, medical imaging exams and procedure reports are released immediately into your electronic medical record. You may view this report before your referring provider. If you have questions, please contact your health care provider. Indication: Right shoulder pain. Comparison: 09/05/2023 Procedure : Informed consent was obtained. The site was marked. Time-out was performed. The skin of the right shoulder was cleansed with ChloraPrep. A sterile drape was placed. 8 cc of 1 percent lidocaine was administered for superficial anesthesia. Subsequently a 22 gauge spinal needle was introduced into the right shoulder joint under intermittent fluoroscopic guidance. Injection of 2 cc nonionic Omnipaque 240 contrast confirmed intra-articular location. Subsequently 11 cc of dilute gadolinium were injected. The needle was removed and hemostasis achieved with direct pressure. A dressing was placed. The patient tolerated the procedure well without immediate complication and was immediately sent to MRI for imaging. Total fluoroscopy time 34 seconds. Impression: Successful fluoroscopically guided right shoulder arthrogram for MRI. Dictated by Kehinde Muniz MD @ 09/19/2023 10:14:36 AM (Electronically Signed)
--- NOTE | 2023-09-19 09:15 | MR_ITS ---
[address] [address] Phone:?[phone] Fax:?[phone] Referring Physician Information: Luis Eduardo Blum M.D. [address] [facility] [address] Phone:?[phone] Fax:?[phone] Patient:Marie Shipley D.O.B:?1975 Sex:?Male Phone:?[phone] [facility] MRN:?[id number] Exam Date:?09/19/2023 EXAM: MR ARTHROGRAM EXAMINATION OF THE RIGHT SHOULDER CLINICAL INFORMATION: Right shoulder pain. History of injury and surgery. Evaluate SLAP tear. TECHNICAL INFORMATION: This study was performed following the intraarticular injection of a dilute gadolinium solution. Coronal PD, T1 fat saturation and PD fat saturation. Axial PD and PD fat saturation. Sagittal T2 and PD fat saturation images were acquired. There are no prior studies available for comparison. INTERPRETATION: Bones: There is no Hill-Sachs impaction deformity. No other occult fracture or osseous contusion. There is a postsurgical appearance of coracoclavicular ligament reconstruction surgery. Rotator Cuff: No evidence for contrast into extending into an undersurface supraspinatus tendon tear. There is a mild to moderate appearance of tendinopathy. No evidence for an undersurface infraspinatus tendon tear. There are moderate changes of tendinopathy. The teres minor tendon is intact. There is a 1 cm craniocaudal deep fiber partial-thickness tear involving the far superior subscapularis tendon insertion. No appreciable rotator cuff muscle belly atrophy. Coracoacromial arch: There is no discrete subacromial osseous spur. The bony acromiohumeral interval is measuring 6 to 7 mm. There is no thickening identified of the coracoacromial ligament. Acromioclavicular joint: There is a mild appearance of AC joint DJD. No deformity of the underlying supraspinatus tendon. Marked deformity and irregularity, but grossly intact appearance of the coracoclavicular ligaments following surgical repair. Biceps tendon: As seen on series 4 images 16 and 17, minimal/early medial subluxation of the long head biceps tendon from the superior bicipital groove. There is a mild appearance of long head biceps tendinopathy within the bicipital groove. Glenohumeral joint and labrum: Glenohumeral joint is distended with contrast material status post arthrogram injection. No discrete loose body within the joint. Osteochondral surfaces appear relatively preserved. There is no evidence for contrast material extending into a SLAP tear. No other evidence for labral tear. No discrete paralabral cyst is identified. CONCLUSION: 1. No evidence for contrast material extending into a SLAP tear or other labral tear. There is no paralabral cyst. 2. Minimal/early medial subluxation of the long head biceps tendon from the far superior bicipital groove. There are mild changes of tendinopathy of the tendon within the bicipital groove. 3. Mild to moderate supraspinatus and moderate infraspinatus tendinopathy, without evidence for a tendon tear. 4. There is a small to moderate-sized deep fiber partial-thickness tear involving the superior subscapularis tendon insertion. 5. Mild AC joint DJD with mild narrowing of the acromiohumeral interval. Grossly intact appearance of prior coracoclavicular ligament repair surgery. 6. No evidence for glenohumeral chondromalacia. KES Electronically signed on 09/19/2023 10:24:00 AM by Juan Knox M.D.
== END 2023-09-19 07:59 | disposition home or self-care (01) ==
LOC: RAD 07:58
PROVIDERS: PCP Family Medicine; Visit Provider Orthopaedic Surgery Sports Medicine
DX: M25.511 Pain in right shoulder (principal); S43.431A Superior glenoid labrum lesion of right shoulder, initial encounter; M19.011 Primary osteoarthritis, right shoulder
CPT/HCPCS: 23350; 73222; 77002; A9575; Q9966

== ENCOUNTER 2024-12-05 20:50 | Emergency (ER) | payer OTHER, SELFPAY ==
[2024-12-05 20:55] VITALS: BP 132/86; PULSE 70; RESP 16; TEMP 36.6; O2SAT 99; BMI 24.4
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
[2024-12-05] MEDS: OxyCODONE/APAP 5-325 TABLET 2 TAB PO (21:25)
--- OUTSIDE RECORDS SUMMARY | 2024-12-05 21:25 | XMS_ITS | Clinical Summary ---
Author Organization [facility] Address [address] [place] [address] Care Team Providers Care Blanket Maker Name Role Phone Artur Paul MD Primary Care Provider [phone] Allergies No known active allergies Medications polyethylene glycol-electrol yte (GOLYTELY) 236-22.74-6.74 -5.86 gram suspensionIndic ations:Colon cancer screening Drink 2 liters (1/2) the day before colonocopy and drink 2 liters (other 1/2) 6 hours before colonoscopy appointment. 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 GENERATOR Gender Identity Not on file Sexual Orientation Not on file Obstetrics History Last Filed Vital Signs Vital Sign Reading Time Taken Comments Blood Pressure 103/64 12/26/2022 11:10 AM INSTRUMENT LENS GENERATOR Pulse 63 12/26/2022 11:10 AM INSTRUMENT LENS GENERATOR Temperature - - Respiratory Rate 16 12/26/2022 11:10 AM INSTRUMENT LENS GENERATOR Oxygen Saturation 98% 12/26/2022 11:10 AM INSTRUMENT LENS GENERATOR Inhaled Oxygen Concentration - - Weight 79.8 kg (176 lb) 01/11/2022 3:55 PM INSTRUMENT LENS GENERATOR Height - - Body Mass Index - - Plan of Treatment Health Maintenance Due Date Last Done Comments Tetanus booster 02/25/1987 Depression screening for age 12+ 1988 HIV for age 15-65 02/25/1991 BMI (ht and wt on same day) for age 18+ 02/25/1994 Hepatitis C screening for ag e 18-79 02/25/1994 Hepatitis B series for 19+ ( 1 of 3 - 19+ 3-dose series) 02/25/1995 Lipids for age 45-75 02/25/2021 Influenza Vaccine (#1) 2024 Colonoscopy through age 75 12/26/203212/26, 12/26/2022 RSV vaccine for adults or (1 - 1-dose 75+ series) 02/25/2051 Pneumococcal series for age 6-49 Aged Out No longer eligible b ased on patient's age to complete this topic Procedures Procedure Name Priority Date/Time Associated Diagnosis Comments COLONOSCOPY 12/26/2022 10:16 AM INSTRUMENT LENS GENERATOR from Last 3 Months or Most Recently Relevant to Health Maintenance Results * COLONOSCOPY (12/26/2022 10:16 AM INSTRUMENT LENS GENERATOR) 12/26/2022 10:1 6 AM INSTRUMENT LENS GENERATOR Narrative Transcriptions Brenden Ayala MD - 12/26/2022 [...] an adequate candidate for conscious sedation. The [id number] was passed through the anus and advanced [...] 10:16 AM Procedure Code(s): --- Professional --- 99712, Colonoscopy, flexible; diagnostic, including collection of specimen(s) bybrushing or washing, when performed (separateprocedure) Diagnosis Code(s): --- Professional --- Z12.11, Encounter for screening formalignant neoplasm of colon Q43.8, Other specified congenitalmalformations of intestine CPT copyright 2021 [employer]. All rights reserved. The codes documented in this report are preliminary and upon golf course mechanic reviewmay be revised to meet current compliance requirements. Scope In: 10:31:27 AM Scope Withdrawal Time 0 hours 9 minutes 5 seconds Scope Out: 10:53:09 AM us Brenden Ayala MD PROCEDURE ORD Final Res ult from Last 3 Months or Most Recently Relevant to Health Maintenance Care Teams Blanket Maker Relationship Specialty Start Date End Date Artur Paul MD [address] [place] [phone] PCP - General Family Practice 04/08/19
--- OUTSIDE RECORDS SUMMARY | 2024-12-05 21:25 | XMS_ITS | Clinical Summary ---
Author Organization [facility] Address [address] [place] [address] Care Team Providers Care Acetylene Cylinder Packing Mixer Name Role Phone Needs Pcp, Assignment Primary Care Provider Source Comments You are receiving this document as you are listed as the primary care provider,follow-up provider, or the patient has been referred to you for consultation.This is in compliance with the Medicare and[facility] Incentive [facility],which states Providers who transition their patient to another setting of careor provider of care or refers their patient to another provider of care shouldprovide summary care record for each transition of care or referral. [facility] Allergies No known active allergies Medications No known medications Active Problems Problem Noted Date Diagnosed Date Abdominal pain 03/04/2012 Overview (10/02/2016): recurrent ; Abdominal pain, unspecified site Resolved Problems Problem Noted Date Diagnosed Date Resolved Date Routine general medical exam ination at a health care facility 01/11/2009 09/30/2013 Overview (10/02/2016): Multisystem Exam Impacted cerumen 08/13/2007 04/24/2011 Overview (10/02/2016): Cerumen Impacted Immunizations Immunization Administration Dates Next Due Flu Vac Preserv [...] at Not on file Legal Sex Male 6:52 PM 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 SALES 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 Gender Identity Not on file Sexual Orientation Not on file 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 Not on file Not on file Last Filed Vital Signs Vital Sign Reading Time Taken Comments Blood Pressure 130/63 05/19/2017 7:23 PM CDT Pulse 64 05/19/2017 7:23 PM CDT Temperature 35.4 C (95.8 F) 05/14/2021 3:43 PM CDT Respiratory Rate 24 [...] Services) 1976 Adult Preventive Visit 02/25/1994 HepB Vaccine (1) 02/25/1995 Cholesterol 10/30/2018 10/30/2013, 07/12, 01/11/2009, Additional history exists DTaP/Tdap/Td Vaccine (2 - Tdap) 10/14/2023 10/13/2013, 08/30/2002 COVID-19 Vaccine (1 - season) 2024 Influenza Vaccine (#1) 2024 10/31/2014, 2008 Zoster/Shingles Vaccine (1 of 2) 02/25/2026 HIV Screening (Preventive Services) Completed 01/05/2001 HepA Vaccine Aged Out No longer eligi ble based on patient's age to complete this topic Hib Vaccine Aged Out No longer eligi ble based on patient's age to complete this topic IPV (Polio) Vaccine Aged Out No longe r eligible based on patient's age to complete this topic MCV4 Vaccine Aged Out No longer eligi ble based on patient's age to complete this topic Meningococcal B Vaccine Aged Out No l onger eligible based on patient's age to complete this topic Pneumococcal Vaccine Aged Out No long er eligible based on patient's age to complete this topic Procedures Procedure Name Priority Date/Time Associated Diagnosis Comments LIPID PANEL & DIRECT LDL (IF NEEDED) Routine 10/30/2013 8:16 AM CDT Screening for ischemic heart disease HIV ANTIBODY Routine 01/05/2001 3:19 PM OUTSIDE SALES CONSULTANT from Last 3 Months or Most Recently [...] - 10/30/2013 9:24 AM CDT Performed at [facility], [facility] [place] [address] us Chencho Arauz PA-C LAB_1 Final Resu lt Performing Organization Address City/[facility]/ZIP Co de Phone Number HP CONVERSION * HIV Antibody (01/05/2001 3:19 PM OUTSIDE SALES CONSULTANT) HIV 1/HIV 2 Non Reac Non Reac HP CONVERSION 01/05/2001 3:19 PM OUTSIDE SALES CONSULTANT us Gigi Philippe MD LAB_1 Final Result Performing Organization Address City[facility]/ZIP Co de Phone Number HP CONVERSION from Last 3 Months or Most Recently Relevant to Health Maintenance Care Teams Ac[employer] C[employer] Packing Mixer Relationship Specialty Start Date End Date Needs Pcp, Assignment [place], [place] [id number] PCP - General 01/22/23
== END 2024-12-05 21:53 | disposition home or self-care (01) ==
PROVIDERS: Emergency Provider Family Medicine; PCP Family Medicine
DX: T23.252A Burn of second degree of left palm, initial encounter (principal); X15.3XXA Contact with hot saucepan or skillet, initial encounter
CPT/HCPCS: 16020; 99283; 99284; A9270